=== PATIENT | male | born 1935 | race Caucasian/White ===

== ENCOUNTER → 2016-07-13 | Outpatient (CLI) | payer MEDICARE, OTHER ==
--- NOTE | 2016-07-17 10:44 | RADONC ---
RADIATION ONCOLOGY CONSULTATION NOTE DATE: 07/13/2016 CHART NUMBER: [id number]. DIAGNOSIS: Prostate cancer. STAGE: IIB, [id number]. ECOG PERFORMANCE STATUS: 0 CONSULTATION NOTE: Mr. 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 HISTORY OF PRESENT ILLNESS: The patient was in his usual state of health but was found to have a PSA level of 12.1. On 06/02/2016 the patient underwent prostatic needle biopsy and a poorly differentiated adenocarcinoma, Seattle score 9 (5-4) was found throughout the prostate. All core specimens were positive for prostatic adenocarcinoma and almost all specimens sent perineural invasion noted. A bone scan was done on 06/21/2016 and showed no evidence of metastatic disease. CT scan of the abdomen and pelvis was also done on 06/21/2016 and no evidence of lymphadenopathy was seen. The patient has started androgen deprivation therapy and is now being referred to us for consideration of definitive external beam radiation therapy with IMRT/IGRT. Clearly, IMRT/IGRT will be needed in this highly aggressive cancer. This is an elderly patient and we will be treating not just the prostate and seminal vesicles, but his first echelon of lymph nodes. In order to maintain the small bowel and other structures within their tolerance limits in this elderly patient, IMRT with image guidance will be needed. PAST MEDICAL HISTORY: The patient's past medical history is positive for emphysema and atrial fibrillation. He has a pacemaker. He also has a history of hypertension and a urinary tract infection. In addition, he has had bilateral cataracts. ALLERGIES: The patient is allergic to NEOSPORIN. SOCIAL HISTORY: The patient had smoked half a pack of cigarettes per day for 50 years. He quit in 1996. He drinks alcohol socially. FAMILY HISTORY: The patient's family history is positive for a mother with throat cancer and two brothers with some type of cancer of unknown primary. REVIEW OF SYSTEMS: The patient's review of systems is positive for some occasional dizziness as well as some slight loss of appetite. It is otherwise noncontributory. He denies nausea, vomiting, fevers, chills, night sweats, diplopia, headaches, anxiety or depression, anorexia, weight loss, visual disturbances, chest pain, urinary or bowel difficulties, bone pain or neurological problems. VITAL SIGNS: Oxygen saturation 97%, blood pressure 166/90, temperature 97.4, pulse 60, respirations 18, height 5 feet 10 inches, weight 192 pounds. PHYSICAL EXAMINATION: The patient is a well-developed, well-nourished male in no acute distress. HEENT exam is normocephalic, atraumatic. Extraocular movements are intact. There is no palpable cervical, supraclavicular, infraclavicular, axillary, or inguinal lymphadenopathy present. Lungs are clear to auscultation and percussion. Heart has a regular rate and rhythm. Abdomen is benign with no hepatosplenomegaly, masses, or tenderness. Rectal examination reveals a normal anal sphincter tone. His prostate is smooth with no evidence of nodularity. Skeletal examination reveals no tenderness to pressure or percussion of the bony skeleton. Extremities reveal no clubbing, cyanosis, or edema. Neurologic exam is grossly intact as is the remainder of the physical examination. MEDICAL NECESSITY: IMRT/IGRT is clinically indicated for the highly conformal dose planning required. The target volume is in close proximity to critical structures, such as the rectum, bladder, small bowel, and femoral heads. The volume of interest must be covered with narrow margins to adequately protect immediately adjacent structures. The plan requires interpretation of complex testing such as CT localization. As noted above, special planning (IMRT) and localizing (IGRT) is required and essential to maximally protect sensitive normal tissue structures which cannot be accomplished using conventional 3-dimensional planning. ASSESSMENT: Mr. Groves is presenting to us today with what appears to be a highly aggressive and locally advanced prostatic adenocarcinoma with a rising PSA level. Although the patient is 81 years old, considering the aggressiveness of this tumor, I think it reasonable to offer him radiation. I have discussed with the patient in detail the potential benefits, as well as possible acute and chronic sequelae. We have discussed the logistics of treatment planning, simulation and subsequent fractionated daily radiation treatments. I have set up the patient to be seen again by Dr. Law for discussion and placement of fiducial markers. Once the fiducial markers are placed, further radiation treatment planning can begin. In addition, we did discuss the possibility of watchful waiting with anti-deprivation hormone treatment. Although the patient is elderly, this is an aggressive cancer with a Katherine score 9 (5-4). Androgen deprivation therapy may not be as successful in such a B differentiated malignancy. Therefore, once again, I think it reasonable to offer him radiation. Thank you for allowing us to participate in the care of this very pleasant gentleman. If I could be of any further assistance or provide you with any information, please free to contact me anytime. cc: Sriram Law MD *Camille Guido,
== END ==
LOC: M ONCR 09:52
PROVIDERS: ATTEND Radiology Radiation Oncology
DX: C61 Malignant neoplasm of prostate (principal); Z87.891 Personal history of nicotine dependence; Z79.899 Other long term (current) drug therapy
CPT/HCPCS: 87086; G0463

== ENCOUNTER → 2016-07-13 | Outpatient (REF) | payer MEDICARE, OTHER | LOC: M SMT 13:00 | PROVIDERS: ATTEND Urology | DX: N39.0 Urinary tract infection, site not specified (principal) ==

== ENCOUNTER → 2016-07-28 | Outpatient (CLI) | payer MEDICARE, OTHER ==
[~2016-07-28] MED LIST: ENAL20TA PO; VITMTA PO
--- NOTE | 2016-07-28 14:04 | REP ---
FIDUCIARY MARKER PLACEMENT: 07/28/2016 CLINICAL HISTORY: Prostate carcinoma. FINDINGS: Sonographic guidance provided to Dr. Law of the urology division for placement of six fiduciary markers. Please see his procedure report for details. Signed by Leonel Blake MD 07/28/2016 04:45 P
== END ==
LOC: M SMT 09:25
PROVIDERS: ATTEND Urology
DX: C61 Malignant neoplasm of prostate (principal)

== ENCOUNTER 2016-08-09 09:01 | Outpatient (RCR) | payer MEDICARE, BC, OTHER ==
--- NOTE | 2016-08-10 10:51 | RADONC ---
RADIATION ONCOLOGY SIMULATION NOTE: CHART NUMBER: Mr. Goncalves was taken to the CT scan for CT simulation of his prostate field. CT was accomplished without difficulty or discomfort. Radiation treatment planning is underway, and radiation treatments will begin subsequently. An immobilization device was created without difficulty or discomfort. It will be used throughout the course of treatment. I was physically present throughout the course of CT simulation.
[2016-08-22] MEDS ORDERED: ENAL20TA PO (14:36)
[2016-08-22] MEDS ORDERED: VITMTA PO (14:36)
[2016-08-25] MEDS ORDERED: CEFD1CAP8 PO (11:37)
--- NOTE | 2016-08-28 11:45 | RADONC ---
RADIATION ONCOLOGY PROGRESS NOTE: DATE: 08/28/2016 CHART NO: [id number] Mr. Goncalves had been scheduled to initiate radiation to his prostate today. Last week the patient had been admitted for a urinary tract infection and sepsis. When we called the patient today to see about him coming in, his answered the phone and said he is not up to radiation at this point. When asked if she thought he would be coming in the next several days, she said he did not think he wanted radiation at all. We will keep this patient's chart active at this time. We will follow him closely. Clearly the decision is his. If he chooses to initiate radiation, we would be glad to do it at anytime. Of concern may be the loss of his triangulation point and CT 0 fuller. This may require re-simulation and reinitiation of treatment planning. We will continue to follow him.
== END 2016-09-01 ==
LOC: M ONCR 09:01
PROVIDERS: ATTEND Radiology Radiation Oncology
DX: C61 Malignant neoplasm of prostate (principal)

== ENCOUNTER → 2016-08-09 | Outpatient (CLI) | payer MEDICARE, BC, OTHER | LOC: M RAD 08:19 | PROVIDERS: ATTEND Radiology Radiation Oncology | DX: C61 Malignant neoplasm of prostate (principal) ==

== ENCOUNTER 2016-08-22 11:08 | Inpatient (IN) | payer MEDICARE, BC, OTHER ==
[~2016-08-22] VITALS: Ht 177.8 cm; Wt 79.1 kg
[~2016-08-22 11:08] MED LIST changes: -ENAL20TA PO; +ENOXAPARIN 30 MG/0.3 ML SYR (J1650) SC SCH; -VITMTA PO
[2016-08-22 12:26] LABS: BASO % 0.2 % (0.0-1.0); EOS # 0.1 K/mm3 (0.0-0.50); EOS % 0.9 % (0.0-3.0); LARGE UNSTAINED CELL # 0.1 K/mm3 (0.0-0.4); LARGE UNSTAINED CELL % 0.8 % (0.0-4.0); LYMPH # 0.4 K/mm3 (1.5-4.5); LYMPH % 2.9 % (24.0-44.0); MEAN CORPUSCULAR HEMOGLOBIN 31.5 pg (27.0-33.0); MEAN CORPUSCULAR VOLUME 101.8 fl (80.0-96.0); MONO # 0.5 K/mm3 (0.0-0.8); MONO % 3.6 % (0.0-5.0); NEUTROPHILS % 91.6 % (36.0-66.0); PLATELET COUNT, AUTOMATED 174 k/mm3 (150-450); RED CELL DISTRIBUTION WIDTH 12.4 % (11.5-14.5); WHITE BLOOD COUNT 14.2 K/mm3 (4.0-10.0)
[2016-08-22] MEDS ORDERED: NS 500 ML IV ONE ×2 (12:30→21:30)
[2016-08-22 12:40] LABS: ALBUMIN 2.3 GM/DL (3.2-5.2); ALBUMIN/GLOBULIN RATIO 0.53 (1.00-1.93); ALKALINE PHOSPHATASE 70 U/L (45-117); ALT/SGPT 41 U/L (12-78); ANION GAP 8 MEQ/L (8-16); AST/SGOT 45 U/L (15-37); BILIRUBIN,DIRECT 0.1 MG/DL (0.0-0.2); BILIRUBIN,TOTAL 0.5 MG/DL (0.2-1.0); BLOOD UREA NITROGEN 81 MG/DL (7-18); CALCIUM LEVEL 8.6 MG/DL (8.8-10.2); CARBON DIOXIDE LEVEL 30 MEQ/L (21-32); CHLORIDE LEVEL 104 MEQ/L (98-107); CREATININE FOR GFR 3.17 MG/DL (0.70-1.30); GLOMERULAR FILTRATION RATE 20.1 (>35); GLUCOSE, FASTING 109 MG/DL (83-110); SODIUM LEVEL 142 MEQ/L (136-145); TOTAL PROTEIN 6.6 GM/DL (6.4-8.2)
--- NOTE | 2016-08-22 12:40 | REP ---
Clinical: Altered mental status . Comparison: None . Findings: The ventricles, sulci, and cisterns are normal in position and appearance. Enrique-white differentiation is maintained. No acute intracranial hemorrhage, mass/mass effect, pathology or trauma/injury. No evidence for acute infarction. No extra-axial fluid collection. Calvarium is intact. Paranasal sinuses and mastoid air cells are clear. Impression: Normal noncontrast head CT. No evidence for acute intracranial pathology or trauma/injury. Signed by Priyank Roque MD 08/22/2016 12:32 P
[2016-08-22 12:52] LABS: POTASSIUM SERUM 5.7 MEQ/L (3.5-5.1)
[2016-08-22] MEDS ORDERED: cefTRIAXone SOD 1 GM in D5W MINI-BAG PLUS 50 ML IV ONE (13:30)
--- NOTE | 2016-08-22 14:00 | HPEPDOC ---
Medical History and Physical Date of Admission 08/22/16 History and Physical ATTENDING: PCP: Dr Angela Carreno Urologist. Dr Law. Medical Leader. [facility]. CC: AMS HPI: 81yoM with a past medical history significant for prostate ca, follows with Dr Law, and recieved chemotherapy treatment 08/18/[address] Law. Per since then Pt has been lethargic, confused, incontinent of urine, anorexic with 20 pound weight loss in the past 2 weeks. The pt was scheduled to start RT today but was referred to ED for eval after speaking to Dr Law and Dr Meade. The Pt denies abdominal pain, back pain, frequency , urgency, hematuria, change in color/odor of urine. Denies any fevers, chills, TAYLOR, CP, SOB, cough, palpitations, abdominal pain, N/V /D or changes in bowel habits. Upon presentation to the hospital the patient was found to have AMS/BONI, thus the hospitalist team was consulted. PMHx: Prostate CA- Thanh/Mariel H/O Urinary retention HTN H/O AFib COPD HLD PSHX: Pacemaker 2014 Left inguinal hernia B/L cataract SOCHX: Resides in: [place] Marital Status: Kids: 1 dtr Employment: retired [employer] Tobacco use: quit 20 yrs ago ETOH: denies Illicit Drugs: Denies Recent travel: denies Advanced directives: none FAMHX: Mother: 83 throat Ca Father: 99yo Siblings: 3 sisters Alive, well. 2 brothers . Children: 1 dtr [place]. Unexpected deaths due to medical reasons: None. ROS: As noted in HPI, otherwise 11pt ROS of systems reviewed and remarkable only for PE: GEN: 81yoM, appears stated age. Well-nourished, well developed. No acute distress. Alert and oriented x to person not to time. Pleasant. HEENT: Normocephalic, atraumatic. Pupils are equal, round, and reactive to light. Extraocular movements are intact. No nystagmus appreciated. Sclera are nonicteric. Conjunctiva without injection. Nose midline. Nasal turbinates without bogginess. EACs both patent BL. TMs both visualized and boo with good cone of light, no bulging or erythema. No facial asymmetry. Moist mucous membranes. Dentition fair. Pharynx pink and moist, no cobblestoning. Neck supple , trachea midline. No lymphadenopathy or thyromegaly appreciated. CHEST: Regular rate and rhythm, +S1, +S2 LUNGS: Clear to auscultation bilaterally. No wheezes, rales, or rhonchi. Breathing appears symmetric and easy. Patient is speaking in full sentences. No accessory muscle use. ABD: Round, soft, non-tender, non-distended. +Bowel sounds throughout. No rebound or guarding. No costovertebral angle tenderness. EXT: Pulses 2+ bilaterally dorsalis pedis and radial. 2 mm lower extremity edema appreciated to prox pretib area. SKIN: No rashes. NEURO: Cranial nerves III-XII are intact. No focal deficits appreciated. CXR: Pending CT Head: Normal noncontrast head . No evidence for acute intracranial pathology or trauma/injury EKG: V paced, 89 BPM. BLOOD CULTURES: x 2 pending UC pending. A&P: 81yoM with a past medical history significant for prostate ca, follows with Dr Law, and recieved chemotherapy treatment 08/18/[address] Law. Per since then Pt has been lethargic, confused, incontinent on urine, anorexic with 20 pound weight loss. The pt was scheduled to start RT today but was referred to ED for eval after speaking to Dr Law and Dr Meade. The patient will be admitted to PCU for at least [address] Harris's service. Pt is discussed and reviewed with Dr More. 1. AMS/Metabolic encephalopathy possible uremia vs infection. Pt will be started on IV Cefepime renally dosed. IVF at 100cc per hr. UC/BC x 2 pending. Recheck LA at 6pm. 2. Poor po intake/dehydration. IVF at 100cc/hr 3. Hyperkalemia. S/P Kayexalate in ED. IVF. Recheck at 6pm. Nephrology for any further recommendations. 4. Prostate Ca. Will consult Dr Law for any further recommendations. Dr Law aware and will see the pt. The pt states he was due for his next injection 09/01/16. RT as per Dr eMade. 5. Renal failure. Unknown baseline. Consult nephrology for any further recommendations. Dr June aware and will see pt. Hold ACEI. Check bladder scans. Check renal U/S to r/o obstruction. 6. HTN. Hold ACEI. DVT prophylaxis. Lovenox renally dosed. The patient is a Full code. I have both independently examined this patient as well as reviewed the H&P. I have discussed in detail with Linda the findings and plan of treatment as documented in [facility] note. I will continue to follow the patient and offer further guidance to the patients care as necessary during this hospital stay. Liz More MD Vital Signs 98.7 94 88/56 20 94% RA Laboratory Data Labs 24H Laboratory Tests 2 08/22/16 11:59: Aspartate Amino Transf (AST/SGOT) 45H, Alanine Aminotransferase (ALT/SGPT) 41, Alkaline Phosphatase 70, Total Bilirubin 0.5, Direct Bilirubin 0.1, Albumin 2.3L , Albumin/Globulin Ratio 0.53L, Anion Gap 8, White Blood Count 14.2H, Red Blood Count 4.24L, Hemoglobin 13.4L, Hematocrit 43.1, Mean Corpuscular Volume 101.8H, Mean Corpuscular Hemoglobin 31.5, Mean Corpuscular Hemoglobin Concent 31.0L, Red Cell Distribution Width 12.4, Platelet Count 174, Neutrophils (%) (Auto) 91.6H, Lymphocytes (%) (Auto) 2.9L, Monocytes (%) (Auto) 3.6, Eosinophils (%) ( Auto) 0.9, Basophils (%) (Auto) 0.2, Neutrophils # (Auto) 13.0H, Lymphocytes # ( Auto) 0.4L, Monocytes # (Auto) 0.5, Eosinophils # (Auto) 0.1, Basophils # (Auto ) 0.0, Calcium Level 8.6L, Creatine Kinase MB 1.0, Creatine Kinase MB Relative Index 1.88, Glomerular Filtration Rate 20.1L, Lactic Acid Level 2.3*H, Large Unclassified Cells # 0.1, Large Unclassified Cells % 0.8, Thyroid Stimulating Hormone (TSH) 2.850, Total Creatine Kinase 53, Total Protein 6.6, Troponin I < 0.02 08/22/16 12:45: Bedside Glucose (Misc Panel) 94 08/22/16 12:53: Urine Amorphous Sediment , Urine Appearance TURBIDH, Urine Color LUDWIN, Urine pH 5.0, Urine Specific [place] 1.010, Urine Protein 2+H, Urine Glucose (UA) NEGATIVE, Urine Ketones NEGATIVE, Urine Urobilinogen 0.2, Urine Bilirubin NEGATIVE, Urine Leukocyte Esterase 3+H, Urine Bacteria (Auto) 2+H, Urine Blood 1 +H, Urine Calcium Carbonate Cryst(Auto) , Urine Calcium Oxalate Cryst (Auto) , Urine Calcium Phosphate Danisha (Auto) , Urine Cellular Casts , Urine Cystine Crystals , Urine Granular Casts (Auto) , Urine Hyaline Casts (Auto) 0, Urine Leucine Crystals , Urine Mucus (Auto) , Urine Nitrite NEGATIVE, Urine Oval Fat Bodies (Auto) , Urine RBC (Auto) 32H, Urine Renal Epithelial Cells , Urine Sperm (Auto) , Urine Squamous Epithelial Cells 0, Urine Transitional Epithelial Cells , Urine Trichomonas (Auto) , Urine Triple Phosphate Cryst (Auto) , Urine Tyrosine Crystals , Urine Uric Acid Crystals (Auto) , Urine WBC (Auto) TNTCH, Urine Waxy Casts (Auto) , Urine Yeast-Like Cells (Auto) CBC/BMP Laboratory Tests 08/22/16 11:59 Red Blood Count 4.24 L, Mean Corpuscular Volume 101.8 H, Mean Corpuscular Hemoglobin 31.5, Mean Corpuscular Hemoglobin Concent 31.0 L, Red Cell Distribution Width 12.4, Neutrophils (%) (Auto) 91.6 H, Lymphocytes (%) (Auto) 2.9 L, Monocytes (%) (Auto) 3.6, Eosinophils (%) (Auto) 0.9, Basophils (%) (Auto ) 0.2, Neutrophils # (Auto) 13.0 H, Lymphocytes # (Auto) 0.4 L, Monocytes # ( Auto) 0.5, Eosinophils # (Auto) 0.1, Basophils # (Auto) 0.0 Microbiology Microbiology 08/22/16 Blood Culture, Received Pending 08/22/16 Urine Culture, Received Pending Home Medications Scheduled Cefdinir (Cefdinir) 300 Mg Cap 300 MG PO BID Multivitamins *[facility] STOCKED* (Thera M Plus *[facility] STOCKED*) 1 Tab Tab 1 TAB PO DAILY Allergies Coded Allergies: No Known Allergies (Unverified , 08/22/16) Linda Alford Aug 22, 2016 14:00 LIZ MORE MD Aug 28, 2016 08:36
[2016-08-22] MEDS ORDERED: SOD POLYSTYRENE SULFONATE SUSP 15 GM/60 ML UD PO ONE (14:15)
[2016-08-22] MEDS ORDERED: CEFEPIME HCL 2 GM in D5W MINI-BAG PLUS 50 ML IV SCH (14:30)
[2016-08-22] MEDS ORDERED: ENAL20TA PO (14:36)
[2016-08-22] MEDS ORDERED: VITMTA PO (14:36)
--- NOTE | 2016-08-22 14:51 | REP ---
CHEST, PORTABLE: AP portable view of the chest is performed and compared to prior study, 06/13/2012. Mild bibasilar fibrotic changes are present. There is no acute infiltrate or pulmonary edema. The heart is normal in size. The mediastinal silhouette is unremarkable, unchanged. Left pacemaker is again noted. IMPRESSION: No acute infiltrate. Signed by Efra Enrique MD 08/22/2016 03:33 P
[2016-08-22] MEDS: NS 1,000 ML IV SCH ×2 (15:38→21:56)
--- NOTE | 2016-08-22 15:40 | REP ---
Clinical: Acute renal insufficiency. Technique: Real time boo scale and color evaluation of the kidneys and bladder using curved array transducer. Findings: The kidneys demonstrate bilateral moderate grade III/IV hydronephrosis without significant obvious nephrolithiasis, cystic or significant mass lesion. Small 9 mm echogenic focus along the cortex of the right kidney likely benign chronic change. Right kidney measures 12.2 x 8.0 x 5.8 cm and the proximal right ureter measures 23 mm diameter. Left kidney measures 10.4 x 5.2 x 5.1 cm and the proximal left ureter measures 15 mm diameter. Bladder demonstrates bilateral ureteral jets and suspected mild wall thickening. Impression: Moderate bilateral hydroureteronephrosis. Bilateral ureteral jets within the bladder exclude complete obstruction. Bladder demonstrates wall thickening and is otherwise incompletely evaluated. Signed by Priyank Roque MD 08/22/2016 03:31 P
[2016-08-22 18:00] VITALS: BP 114/82
[2016-08-22 18:38] LABS: CALCIUM LEVEL 8.6 MG/DL (8.8-10.2); CREATININE FOR GFR 3.27 MG/DL (0.70-1.30); GLOMERULAR FILTRATION RATE 19.4 (>35)
[2016-08-22 18:46] LABS: POTASSIUM SERUM 5.6 MEQ/L (3.5-5.1)
--- NOTE | 2016-08-22 18:47 | REP ---
Clinical: Hydronephrosis. Findings: Moderate, grade III hydroureteronephrosis and perinephric stranding is appreciated bilaterally extending to the bladder where mild bladder wall thickening cannot be excluded although the bladder itself is under distended and limited in evaluation. Small clips are identified in the prostate gland which is relatively normal in size. Liver, spleen, pancreas, gallbladder, and bilateral adrenal glands are normal for noncontrast evaluation. The enteric system is without obstruction or acute inflammatory process. Extensive colonic and predominantly sigmoid diverticulosis noted without acute diverticulitis. Left inguinal hernia contains a portion of the proximal sigmoid colon and mesenteric fat. No ascites. No free air. No intraperitoneal or retroperitoneal adenopathy. Atherosclerotic changes of the aorta and branch vessels noted without aneurysm. Musculoskeletal structures demonstrate degenerative changes. Lung bases are clear. Impression: 1. Moderate grade III hydroureteronephrosis and perinephric stranding with suspected mild bladder wall thickening. Findings are nonspecific and outlet obstruction must be considered. Evidence for prior prostate surgery. 2. Colonic and predominantly sigmoid diverticulosis without diverticulitis. 3. Left inguinal hernia contains mesenteric fat and nonobstructed sigmoid colon. 4. Further chronic changes as described above. Signed by Priyank Roque MD 08/22/2016 06:39 P
--- NOTE | 2016-08-22 18:51 | CR ---
DATE OF CONSULTATION: 08/22/2016 CHIEF COMPLAINT: History of prostate cancer in patient with fatigue, lethargy, confusion, incontinence with urination. HISTORY OF PRESENT ILLNESS: This is an 81-year-old male patient with past medical history significant for prostate cancer Katherine score 9, clinical stage [id number] prostate cancer who actually has received hormonal therapy with Firmagon and then switched to Lupron 45 mg every 6 months. The patient actually had fiducial markers placed and is ready to actually have radiation therapy for localized prostate cancer therapy. Today, he refers that he was lethargic, confused, incontinent to urine, anorexic, with a 20 pound weight loss in the past 2 weeks. The patient was scheduled for radiation therapy today and was referred to the emergency department (ED) for evaluation. The patient denies any abdominal pain, back pain, frequency, urgency, hematuria, or change in color or odor of urine. He denies any fever or chills. No cough. No palpitation. No abdominal pain. No nausea. No vomiting. He denies changes in bowel habits. PAST MEDICAL HISTORY: 1. Prostate cancer, under therapy by Dr. Law and Dr. Floyd. 2. History of urinary retention. 3. Hypertension. 4. History of atrial fibrillation. 5. Chronic obstructive pulmonary disease (COPD). PAST SURGICAL HISTORY: 1. Pacemaker in 2013. 2. Left inguinal hernia. 3. Bilateral cataracts. SOCIAL HISTORY: Resides in [place]. Marital status: . Kids: One, . Employment: Retired [employer]. Tobacco use: Quit 20 years ago. Alcohol: Denies. Illicit drugs: Denies. Recent travel: Denies. ADVANCED DIRECTIVES: None. FAMILY HISTORY: Mother at 83 years old, throat cancer. Father 99 years old. Siblings: Three sisters, alive, well; two brothers, . Children: One, , myocardial infarction ([place]), unexpected due to medical reasons. REVIEW OF SYSTEMS: As noted in history of present illness, otherwise 12 review of systems are reviewed and remarkable only for chief complaint. PHYSICAL EXAMINATION: He is awake, oriented times three. He has a nasal cannula but respiratory rate is 92% at 2 liters of nasal cannula. HEENT: Normocephalic, atraumatic. Pupils are equal, round, and reactive to light. Extraocular movements are intact. Sclerae is nonicteric. Conjunctivae without injection. Nose midline. Nasal turbinates without bogginess. NECK: No restriction to active and passive movement of head and neck. CHEST: Regular rate and rhythm, S1, S2 normal. LUNGS: Clear to auscultation bilaterally. No wheezes, rales, or rhonchi. ABDOMEN: Soft, nontender, nondistended. Bowel sounds present. Rebound negative. No costovertebral angle tenderness. EXTREMITIES: No lymphedema. Peripheral pulses palpable. SKIN: No rashes. IMAGING: He had an ultrasound of the kidneys that shows bilateral mild hydronephrosis. His creatinine is 3.5, however the patient actually is emptying and voiding very well. He had a bladder scan in the emergency department that showed zero postvoid residual (PVR), he is emptying very well clear urine. IMPRESSION AND PLAN: This is a patient with prostate cancer Katherine score 9, clinical stage [id number] under therapy with hormonal ablation therapy with Firmagon at beginning and then Lupron Depot for 5 mg every 6 months. The patient has fiducial markers placed and is ready to have radiation therapy by Dr. Floyd. Today, he was confused and lethargic and for this reason he was sent to the emergency department (ED) for evaluation. He is being admitted by the hospitalist service. We think that he is dehydrated and should be hydrated. He is emptying well his bladder. He has bilateral mild hydronephrosis but he is urinating and he urinated in front of us with scanner which showed zero postvoid residual (PVR). For this reason, we will order a CT scan of the abdomen and pelvis, noncontrast, to evaluate if this is really a bilateral hydronephrosis or if this is only a renal extrapelvic cyst that actually are compatible with bilateral hydronephrosis and ultrasound. The patient will be followed by urology service. In any case, he has no need for a Shultz catheter since he is emptying his bladder very well with no postvoid residual (PVR) at this time. Will followup with CT scan report.
[2016-08-22 19:30] VITALS: BP 82/55
--- NOTE | 2016-08-22 20:12 | CR ---
DATE OF CONSULTATION: 08/22/2016 REQUESTING PHYSICIAN: Dr. Ioana Upton CONSULTING PHYSICIAN: Dr. Moncada REASON FOR CONSULTATION: Management of acute kidney injury and hyperkalemia. CHIEF COMPLAINT: The patient was brought to the emergency room by the family for altered mental status and confusion. No history was obtained from the patient's chart and from primary medical team. The patient is unable to provide any reliable history at this time. HISTORY OF PRESENT ILLNESS: Mr. Nilesh Goncalves is an 81-year-old male with a past medical history of cancer of the prostate, which was recently diagnosed. He follows up with urology as an outpatient. He recently received chemotherapy treatment on 08/18/2016. The name of the chemotherapeutic agent is not available at this time. As per family, the patient had been recently lethargic, confused and incontinent of urine. The patient also has anorexia. He has lost approximately 20 lbs of weight in the last two weeks. The patient has marking done to start the radiation therapy for cancer of the prostate, but before he could start the radiation, because of his confusion and altered mental status, family contacted urology and Dr. Floyd. The patient was brought to the emergency room for further management. On initial evaluation in the emergency room, the patient was found to have sepsis with a white cell count of 14.2 with acute renal failure, BUN of 81, creatinine of 3.17. He was found to have urinary tract infection (UTI) after evaluation of urinalysis. He also had elevated lactic acid of 2.3. The patient was started on IV fluid hydration. He was given IV antibiotics. Nephrology service was called for further management of acute kidney injury and hyperkalemia with a potassium of 5.7. The patient's baseline creatinine is not known, but he reports that he is not known to have any history of kidney disease. When I evaluated the patient in the emergency room, he is hemodynamically stable. He is awake. He is not in any apparent distress at this time, but he is oriented times two. PAST MEDICAL HISTORY: 1. Cancer of the prostate. 2. History of urinary retention in the past. 3. Hypertension. 4. Chronic obstructive pulmonary disease (COPD). 5. Hyperlipidemia. 6. History of atrial fibrillation in the past. PAST SURGICAL HISTORY: 1. Status post pacemaker placement in 2013. 2. History of left inguinal hernia repair. 3. Status post bilateral cataract surgery. ALLERGIES: No known drug allergies. FAMILY HISTORY: No significant family history of end stage renal disease requiring hemodialysis. There is a positive history of cancer of the larynx in mother. SOCIAL HISTORY: The patient lives at home with his family. He is retired. He quit smoking about 20 years ago. He denies any history of alcohol abuse or drug abuse. REVIEW OF SYSTEMS: CONSTITUTIONAL: The patient reports recent weight loss, about 20 pounds in the last two to three weeks. He denies any fevers or chills. EYES: He denies any blurry vision or double vision. ENT: He denies any dysphagia or odynophagia or ear discharge. CARDIOVASCULAR: He denies any chest pain or palpitations. RESPIRATORY: He denies any shortness of breath, cough or wheezing. GASTROINTESTINAL: He denies any nausea or vomiting, but he does report decreased appetite. GENITOURINARY: The patient reports history of cancer of the prostate, recently got chemotherapy and due for radiation therapy at this time. He reports urinary incontinence. MUSCULOSKELETAL: The patient denies any muscle weakness. NEUROLOGIC: There is no history of seizures or strokes in the past. PSYCHIATRIC: No history of depression or anxiety. HEMATOLOGIC/ONCOLOGIC: History of cancer of the prostate, which was recently diagnosed. ENDOCRINE: There is no history or diabetes, hypothyroidism or hyperthyroidism. All other review of systems was negative. PHYSICAL EXAMINATION: GENERAL: The patient is awake, alert, oriented times two, lying in bed. No apparent distress. VITAL SIGNS: Temperature is 98 degrees Fahrenheit. Blood pressure is 128/59, pulse is 94, respiratory rate of 18, saturating 93% on room air. HEAD AND NECK EXAM: Extraocular muscles intact. Pupils are equal, round and reactive to light. Bilateral pseudophakia. Mucous membranes are moist. Neck is supple. There is no jugular venous distention (JVD). CARDIOVASCULAR: S1, S2. Regular rate. No murmur, rub or gallop. RESPIRATORY: Chest is clear to auscultation bilaterally. Bilateral equal air entry. No rales or rhonchi. ABDOMEN: Soft. Positive bowel sounds. Nontender. No ascites. No organomegaly. The patient has a left inguinal hernia, which is mildly tender. Bladder is not palpable at this time. EXTREMITIES: No clubbing or cyanosis. Pulses are 2+. The patient has 2+ pitting edema on the bilateral lower extremities. NEUROLOGIC: No focal neurological deficits. He is oriented to himself and to place. SKIN: No rashes or ulcers. PSYCHIATRIC: Normal mood and affect. LABORATORY REVIEW: Complete blood count (CBC) showed WBC 14.2, hemoglobin 13.4, platelets of 174. Basic metabolic panel (BMP) showed sodium 142, potassium 5.7, chloride 104, bicarbonate 30, BUN 81, creatinine is 3.1. Lactic acid is 2.3, calcium is 8.6, albumin is 2.3. Urinalysis showed that it was turbid with 1+ blood, 3+ leukocyte esterase, too numerous to count WBCs. Microbiology: Cultures are pending so far. IMAGING: Renal ultrasound done today showed moderate bilateral hydroureteronephrosis, bilateral ureteral jets within the bladder, excluding complete obstruction. There was bladder wall thickness. Bed side bladder scan done in the emergency room showed a maximum volume of 140 mL. CURRENT INPATIENT MEDICATIONS: The patient has been started on: - cefepime 1 gram IV every 24 hours - he was given a dose of Rocephin 1 gram IV times one dose - normal saline at 100 mL an hour - Lovenox 30 mg subcutaneously daily - Kayexalate 30 grams by mouth times one dose ASSESSMENT: 81-year-old male with a past medical history of cancer of the prostate, recently started on chemotherapy, pending radiation therapy, admitted this time with sepsis secondary to urinary tract infection (UTI) and acute renal failure. PLAN: 1. Sepsis secondary to urinary tract infection. The patient is hemodynamically stable at this time. Lactate is slightly elevated. He has been hydrated with IV normal saline. Continue IV normal saline at 100 mL an hour. Continue serial monitoring of lactic acid. He has already been given Rocephin and starting tomorrow, he will be getting cefepime. Followup cultures. Antibiotics can be tapered down depending upon culture and sensitivity. 2. Acute renal failure. The patient's baseline creatinine is not known at this time. In our system, I do not have any other laboratories available. His creatinine on admission is 3.1. Most likely it is secondary to a combination of bilateral hydroureteronephrosis and urinary tract infection (UTI). Continue IV antibiotics at this time. There is no urgent need of hemodialysis. Renal function is expected to improve with improvement in infection and sepsis. 3. Hyperkalemia. Hyperkalemia is secondary to acute renal failure. The patient was already given a dose of Kayexalate 30 grams by mouth times one dose, potassium is expected to improve with improvement in the renal function. 4. Bilateral hydroureteronephrosis. The a got bedside bladder scan done, which showed only 140 mL of urine in the bladder. I believe bilateral hydronephrosis might have been chronic. I am not going to put the Shultz in at this time; however, I have ordered the bladder scan to be done every 8 hours. If the postvoid residual is more than 250 mL, then the patient will get a Shultz catheter. I am going to go ahead and order an official ultrasound of the bladder as well. 5. Hypertension. The patient's blood pressure is acceptable at this time. The patient was on enalapril at home, 20 mg. Enalapril is being held at this time. No need of antihypertensive medication at this time. The patient is septic. If needed, he can be started on calcium channel blockers tomorrow morning. Enalapril might also have been contributing to hyperkalemia in this patient. 6. Cancer of the prostate. The patient already follows up with urology as an outpatient. Cancer prostate management is as per urology recommendations. Thank you for involving us in the care of this patient. We shall be happy to follow the patient along with you tomorrow morning. Plan of care was already discussed with primary medical team's physician's press assistant, Linda Alford and the patient's registered nurse (RN) at the bedside in the emergency room.
[2016-08-22 21:00] VITALS: BP 89/60
[2016-08-22 21:59] VITALS: BP 100/59
[2016-08-23] VITALS (10 sets, daily range): BP systolic 100–157; BP diastolic 58–86
[2016-08-23] MEDS: CEFEPIME HCL 1 GM in D5W MINI-BAG PLUS 50 ML IV SCH (02:00)
[2016-08-23] MEDS: NS 1,000 ML IV SCH (05:33)
--- NOTE | 2016-08-23 07:17 | ECGEPIP ---
Stationary ECG Study [facility] - ED Test Date: 2016-08-22 Pat Name: HARRISON TALBOT Department: Room: - Gender: M [employer] Attendant: regis : 1935 Requested By: Jerome Shelley Order Number: [id number] Reading MD: Allyssa Combs Measurements Intervals [place] Rate: 89 P: 89 NC: 235 QRS: -67 QRSD: 153 T: 85 QT: 377 QTc: 461 Interpretive Statements ELECTRONIC VENTRICULAR PACEMAKER ABNORMAL RHYTHM ECG SINUS RHYTHM FIRST DEGREE AV BLOCK NO PRIOR FOR COMPARISON Electronically Signed On 08-23-2016 7:17:23 EDT by Allyssa Combs
[2016-08-23 08:39] LABS: BASO % 0.4 % (0.0-1.0); EOS # 0.1 K/mm3 (0.0-0.50); EOS % 1.4 % (0.0-3.0); LARGE UNSTAINED CELL # 0.1 K/mm3 (0.0-0.4); LARGE UNSTAINED CELL % 1.4 % (0.0-4.0); LYMPH # 0.6 K/mm3 (1.5-4.5); LYMPH % 4.9 % (24.0-44.0); MEAN CORPUSCULAR HEMOGLOBIN 32.2 pg (27.0-33.0); MEAN CORPUSCULAR HGB CONC 31.1 g/dl (32.0-36.5); MEAN CORPUSCULAR VOLUME 103.8 fl (80.0-96.0); MONO # 0.5 K/mm3 (0.0-0.8); MONO % 5.3 % (0.0-5.0); NEUTROPHILS # 8.9 K/mm3 (1.8-7.7); NEUTROPHILS % 86.7 % (36.0-66.0); PLATELET COUNT, AUTOMATED 141 k/mm3 (150-450); RED CELL DISTRIBUTION WIDTH 12.3 % (11.5-14.5); WHITE BLOOD COUNT 10.2 K/mm3 (4.0-10.0)
[2016-08-23 08:54] LABS: ALBUMIN 1.9 GM/DL (3.2-5.2); ALBUMIN/GLOBULIN RATIO 0.54 (1.00-1.93); BILIRUBIN,TOTAL 0.4 MG/DL (0.2-1.0); CREATININE FOR GFR 2.95 MG/DL (0.70-1.30); GLOMERULAR FILTRATION RATE 21.8 (>35); MAGNESIUM LEVEL 2.3 MG/DL (1.8-2.4); TOTAL PROTEIN 5.4 GM/DL (6.4-8.2)
[2016-08-23] MEDS: HEPARIN SOD (PORCINE) 5000 UNITS/ML VIAL SQ SCH ×2 (09:00→20:20)
[2016-08-23 09:02] LABS: POTASSIUM SERUM 5.8 MEQ/L (3.5-5.1)
[2016-08-23] MEDS: NS 0.45% 1,000 ML IV SCH ×2 (10:52→20:15)
[2016-08-23] MEDS ORDERED: LACTULOSE 20 GM/30 ML SYRUP UD PO ONE (11:45)
[2016-08-23] MEDS ORDERED: SOD POLYSTYRENE SULFONATE SUSP 15 GM/60 ML UD PO ONE (11:45)
--- NOTE | 2016-08-23 12:33 | CR ---
CONSULTATION NOTE/PROGRESS NOTE DATE OF CONSULTATION: 08/23/2016 The patient was seen in the emergency department at admission due to a bilateral hydronephrosis detected on ultrasound. For this reason, we actually ordered a CT scan of the abdomen and pelvis noncontrast, which actually confirmed bilateral hydroureteronephrosis grade 3 with bilateral stranding. At the moment of admission, his creatinine levels were 3.27 at 6 p.m. on 08/22/2016. Today, his creatinine levels after hydration are at 2.95 and a BUN of 56. Even though the creatinine has fallen, he has real bilateral hydroureteronephrosis grade [address] scan and bilateral stranding. The patient is emptying well his bladder with a postvoid residual (PVR) bladder scan detected at emergency department, which was minimal. His urine is clear. He has no fever, no chills. He is alert and oriented. This morning, we explained to the patient that the best thing due to his history of prostate cancer and his bilateral hydroureteronephrosis is to recover his renal function completely; and if he has partial obstruction of both kidneys, his renal function will probably not recover completely. For this reason, we think that the best option will be bilateral nephrostomy tubes at this moment in time. He will continue receiving hormonal therapy for his prostate cancer with LHRH analogue. PLAN: 1. Interventional radiology consult was placed for bilateral nephrostomy tubes placed to gravity. 2. From the prostate cancer standpoint of view, he will continue followup with me, Dr. Sriram Law, and Dr. Floyd for definite therapy of his prostate cancer. He will continue on LHRH analogue also every 6 months with Lupron Depot injections. Thank you very much for the consultation.
--- NOTE | 2016-08-23 13:38 | IPN ---
DATE: 08/23/2016 SUBJECTIVE: The patient was seen and examined at the bedside today in the morning. The patient's renal function is slightly improving as compared with yesterday; however, he continues to be hyperkalemic. The patient was given more IV fluid boluses yesterday and his IV fluid rate was increased to normal saline at 150 mL an hour. The patient did not require any Shultz catheterization and he is able to urinate himself. REVIEW OF SYSTEMS: The patient denies any fevers, chills, rigors, headaches, nausea, vomiting, chest pain, shortness of breath, pain in the abdomen, constipation, or diarrhea. The rest of the review of systems is negative. OBJECTIVE: VITAL SIGNS: Temperature is 98.4 degrees Fahrenheit. Blood pressure is 100/59, pulse is 92, respiratory rate of 18, saturating 97% on nasal cannula at 2 liters per minute. Intake and output: Urine output is not recorded. The patient had four incontinent voids overnight. Weight on the bed scale is 78.9 kg. PHYSICAL EXAMINATION: GENERAL: The patient is awake, alert, oriented times two. Lying in bed in no apparent distress. HEAD AND NECK EXAM: Extraocular muscles intact. Pupils are equal, round and reactive to light. Mucous membranes are moist. NECK: Supple. There is no jugular venous distention (JVD). CARDIOVASCULAR: S1, S2. Regular rate. No murmur, rub or gallop. RESPIRATORY: Chest is clear to auscultation bilaterally. Bilateral equal air entry. No rales or rhonchi. ABDOMEN: Soft. Positive bowel sounds. Nontender. No ascites. No organomegaly. The patient does have left inguinal hernia. EXTREMITIES: No clubbing or cyanosis. Pulses are 2+. He has 2+ pitting edema of the bilateral lower extremities. 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 Power is 5/5 in all extremities. He is oriented to himself and the place. SKIN: No rashes or ulcers. LABORATORY REVIEW: CBC showed a WBC of 10.2, hemoglobin is 11, platelets are 141. BMP showed a sodium of 145, potassium 5.8, chloride 109, bicarbonate is 30. BUN 66, creatinine is 2.9, it was 3.2 yesterday. Glucose is 96. Calcium is 8. Albumin is 1.9. Microbiology: Cultures are negative so far. IMAGING: CAT scan of the abdomen and pelvis done yesterday showed moderate grade III hydroureteronephrosis and perinephric stranding with mild bladder wall thickening. There was evidence of sigmoid diverticulosis without diverticulitis. Left inguinal hernia containing mesenteric fat and nonobstructed sigmoid colon. CURRENT MEDICATIONS: The patient's medications were all reviewed by me. He is currently on IV cefepime 1 gram every 24 hourly. The patient got two normal saline boluses of 500 mL each yesterday. His IV fluids have been changed to half normal saline at 100 mL an hour. The patient was given a dose of lactulose 30 mL and Kayexalate 15 gram by mouth times one dose today morning. ASSESSMENT: 81-year-old male with a past medical history of cancer of the prostate, recently being treated with androgen deprivation therapy pending radiation therapy, admitted this time with sepsis secondary to urinary tract infection (UTI) and acute renal failure. PLAN: 1. Sepsis secondary to urinary tract infection (UTI). The patient required IV fluid boluses because of volume depletion yesterday. Cultures are negative so far. White cell count is coming down. Continue current dose of IV antibiotics. Followup cultures and taper down the antibiotic as needed. 2. Acute renal failure. Acute renal failure is secondary to sepsis, urinary tract infection, volume depletion and dehydration. The patient was aggressively fluid hydrated yesterday. Continue IV fluids at this time; however, I will change the IV fluids to half normal saline. 3. Hyperkalemia. THe patient continues to be hyperkalemic despite a dose of Kayexalate yesterday, potassium is 5.8 today. I have given the patient another dose of Kayexalate along with lactulose 30 mL by mouth times one dose, potassium level is expected to improve with improvement in the renal function as well. 4. Bilateral hydroureteronephrosis. The patient got a CAT scan done yesterday. There is no evidence of bladder obstruction at this time. Postvoid residual was 140 mL. No indication of Shultz catheterization at this time. Continue to do the bladder scan every 8 hours for now. rest of the management is as per urology recommendations. 5. Hypertension. The patient is enalapril was held on admission. Blood pressure is acceptable at this time. There is no need of antihypertensive medication at this time. The patient was actually hypotensive yesterday. 6. Cancer of the prostate. The patient was already getting androgen deprivation therapy from urology as an outpatient. Radiation therapy is on hold because of admission to the hospital at this time. The rest of the management is as per radiation oncology and urology. MTDD
--- NOTE | 2016-08-23 14:16 | IPNPDOC ---
Subjective Date Seen The patient was seen on 08/23/16. Subjective Chief Complaint/HPI The patient is a 81-year-old male admitted with a reason for visit of Acute Kidney Failure;Uti. Events since last encounter pateint remains a little confused still but better than yesterday , has been hypotensive overnight no better with fluid resuscitation , low grade fever continues, patient had a post void residual of only 140 ml so does not need wilson cath. Going for bilateral percutaneous nephrostomy today. Objective Physical Examination General Exam: Positive: Cooperative, No Acute Distress Eye Exam: Positive: Conjunctiva & lids normal, EOMI, PERRLA, Negative: Sclera icteric ENT Exam: Positive: Atraumatic, Mucous membr. moist/pink, Pharynx Normal Neck Exam: Positive: Supple, Negative: JVD, thyromegaly Chest Exam: Positive: Clear to auscultation, Normal air movement Heart Exam: Positive: Normal S1, Normal S2, Rate Normal, Regular Rhythm, Negative: Murmurs, Rubs Telemetry: Positive: No significant arrhythmia Abdomen Exam: Positive: Normal bowel sounds, Soft, Negative: Hepatospenomegaly, Tenderness Extremity Exam: Positive: Normal pulses, Negative: Clubbing, Cyanosis, Edema Assessment /Plan Problems (1) Sepsis Status: Acute Problem Text: due to urinary tract infection blood cultures and urine cultures in progress. continue cefepime (2) Metabolic encephalopathy Status: Acute Problem Text: due to infection and sepsis . improving. (3) Urinary tract infection Status: Acute Problem Text: continue cefepime (4) Acute kidney failure Status: Acute Problem Text: due to infection sepsis , dehydration and also bilateral obstructive uropathy patient going for bilateral nephrostomy tube placement today. Nephrology following. (5) Prostate cancer Status: Chronic Problem Text: receiving hormone therapy, scheduled for RT after discharge from hospital urology and dr pisano following. (6) A-fib Status: Chronic (7) Pacemaker Status: Chronic (8) Hyperkalemia Status: Acute Problem Text: received kayexalate. (9) Hyperlipidemia Status: Chronic (10) COPD (chronic obstructive pulmonary disease) Status: Chronic (11) Diverticulosis Status: Chronic (12) Inguinal hernia Status: Chronic Plan/VTE VTE Prophylaxis Ordered?: Yes VS, I&O, 24H, Fishbone Vital Signs/I&O Vital Signs Date Time Temp Pulse Resp B/P Pulse Ox O2 Delivery O2 Flow Rate FiO2 08/23/16 07:30 Room Air 08/23/16 04:00 98.4 92 20 100/59 97 2.0 I&O- Last 24 Hours up to 6 AM 08/23/16 05:59 Intake Total 1575 ml Output Total 140 ml Balance 1435 ml Laboratory Data 24H LABS Laboratory Tests 2 08/22/16 16:27: Lactic Acid Followup at 4 Hours 2.3*H 08/22/16 18:02: Anion Gap 8, Blood Urea Nitrogen 81H, Creatinine 3.27H, Sodium Level 144, Potassium Level 5.6H, Chloride Level 105, Carbon Dioxide Level 31, Calcium Level 8.6L, Glomerular Filtration Rate 19.4L 08/22/16 20:37: Lactic Acid Level 1.2 08/23/16 07:23: Anion Gap 6L, Blood Urea Nitrogen 66H, Creatinine 2.95H, Sodium Level 145, Potassium Level 5.8H, Chloride Level 109H, Carbon Dioxide Level 30, Calcium Level 8.0L, Glomerular Filtration Rate 21.8L, Aspartate Amino Transf (AST/SGOT) 22, Alanine Aminotransferase (ALT/SGPT) 31, Alkaline Phosphatase 57, Total Bilirubin 0.4, Total Protein 5.4L, Albumin 1.9L, Albumin/Globulin Ratio 0.54L, White Blood Count 10.2H, Red Blood Count 3.42L, Hemoglobin 11.0#L, Hematocrit 35.5L, Mean Corpuscular Volume 103.8H, Mean Corpuscular Hemoglobin 32.2, Mean Corpuscular Hemoglobin Concent 31.1L, Red Cell Distribution Width 12.3, Platelet Count 141L, Neutrophils (%) (Auto) 86.7H, Lymphocytes (%) (Auto) 4.9L, Monocytes (%) (Auto) 5.3H, Eosinophils (%) (Auto) 1.4, Basophils (%) (Auto) 0.4 , Neutrophils # (Auto) 8.9H, Lymphocytes # (Auto) 0.6L, Monocytes # (Auto) 0.5, Eosinophils # (Auto) 0.1, Basophils # (Auto) 0.0, Large Unclassified Cells # 0.1 , Large Unclassified Cells % 1.4, Magnesium Level 2.3 CBC/BMP Laboratory Tests 08/22/16 18:02 Calcium Level 8.6 L 08/23/16 07:23 Calcium Level 8.0 L, Aspartate Amino Transf (AST/SGOT) 22, Alanine Aminotransferase (ALT/SGPT) 31, Alkaline Phosphatase 57, Total Bilirubin 0.4, Total Protein 5.4 L, Albumin 1.9 L, Red Blood Count 3.42 L, Mean Corpuscular Volume 103.8 H, Mean Corpuscular Hemoglobin 32.2, Mean Corpuscular Hemoglobin Concent 31.1 L, Red Cell Distribution Width 12.3, Neutrophils (%) (Auto) 86.7 H , Lymphocytes (%) (Auto) 4.9 L, Monocytes (%) (Auto) 5.3 H, Eosinophils (%) ( Auto) 1.4, Basophils (%) (Auto) 0.4, Neutrophils # (Auto) 8.9 H, Lymphocytes # ( Auto) 0.6 L, Monocytes # (Auto) 0.5, Eosinophils # (Auto) 0.1, Basophils # (Auto ) 0.0 Microbiology Microbiology 08/22/16 Blood Culture, Received Pending 08/22/16 Blood Culture - Preliminary, Resulted No growth after 24 hours . All specim... 08/22/16 Urine Culture, Received Pending GEETHA ORTIZ MD Aug 23, 2016 14:16
[2016-08-23] MEDS ORDERED: SODIUM BICARBONATE 8.4% INJ 50MEQ 50 ML VIAL As Ordered ONE (17:31)
[2016-08-23] MEDS ORDERED: ISOVUE-300 61% 50ML VIAL (Q9967) As Ordered ONE (17:31)
[2016-08-23] MEDS ORDERED: LIDOCAINE 2% MDV 20 ML VIAL As Ordered ONE (17:31)
--- NOTE | 2016-08-23 19:37 | REPKIM ---
CLINICAL HISTORY: Patient with a history of prostate ca presents with UTI/ sepsis, elevated creatinine/renal failure and bilateral hydronephrosis. The referring service has asked bilateral nephrostomy catheter placement. PROCEDURE PERFORMED: 1. Ultrasound Kidneys 2. Left Percutaneous Nephrostomy Drainage Catheter Placement 3. Right Percutaneous Nephrostomy Drainage Catheter Placement INTERVENTIONALIST: Iglesia Roberto MD CONSENT: The risks, benefits and alternatives to the procedure were explained to the patient/family and informed written consent was obtained. MEDICATIONS: Local Lidocaine CONTRAST: 15 mL Isovue 300 EBL: 5 mL FLUORO TIME: 1.8 minutes DEVICES USED: Resolve 8.5F catheter x 2 Lot# [id number] PROCEDURE/FINDINGS: The patient was brought to the interventional radiology suite and placed in the prone position. Time out procedure was performed. The patient was prepped and draped in a usual sterile fashion. Patient received IV antibiotics. Ultrasound evaluation of bilateral kidneys showed moderate to severe hydronephrosis. LEFT SIDE: Using ultrasound and fluoroscopy guidance, a 21-gauge Accustick needle was advanced into the targeted lower pole posterior calyx, after infiltration of the skin and deep tissues with local anesthetic. Using this access an Accustick catheter was introduced into the renal pelvis. Initial aspirate revealed relatively clear blood tinged urine. Over the guidewire, an 8.5-Tu[place] nephrostomy drainage catheter was introduced. Its distal loop was formed and locked in the renal pelvis. Contrast was hand injected, confirming satisfactory drainage catheter position. RIGHT SIDE: Using ultrasound and fluoroscopy guidance, a 21-gauge Accustick needle was advanced into the lower pole posterior calyx, after infiltration of the skin and deep tissues with local anesthetic. Using this access an Accustick catheter was introduced into the renal pelvis. Initial aspirate revealed relatively clear urine. Over the guidewire, an 8.5-[place] nephrostomy drainage catheter was introduced. Its distal loop was formed and locked in the renal pelvis. Contrast was hand injected, confirming satisfactory drainage catheter position. Each drainage catheter was then secured to the skin with 2-0 Prolene suture and covered with a sterile dressing. Each drainage catheter was flushed and connected to a gravity drainage bag. The patient tolerated the procedure well with no immediate complications. This procedure was performed using ultrasound and fluoroscopy. Dr. Roberto was present. FINDINGS: 1. Ultrasound demonstrates bilateral moderate to severe hydronephrosis, worse on the right. A sample of urine sent for c/s. 2. Successful placement of bilateral 8.5-Tu[place] percutaneous nephrostomy urinary diversion tubes. IMPRESSION: Moderate to severe bilateral hydronephrosis. Successful placement of bilateral 8.5F percutaneous nephrostomy urinary diversion tubes as discussed above. Continue supportive care and antibiotics. cc: MD Crissy Knox MD MTDD
[2016-08-24 00:45] VITALS: BP 117/77
[2016-08-24] MEDS: CEFEPIME HCL 1 GM in D5W MINI-BAG PLUS 50 ML IV SCH (02:15)
[2016-08-24 04:45] VITALS: BP 109/57
[2016-08-24] MEDS: NS 0.45% 1,000 ML IV SCH (05:41)
[2016-08-24 05:52] LABS: BASO % 0.2 % (0.0-1.0); EOS # 0.1 K/mm3 (0.0-0.50); EOS % 1.3 % (0.0-3.0); LARGE UNSTAINED CELL # 0.2 K/mm3 (0.0-0.4); LARGE UNSTAINED CELL % 1.8 % (0.0-4.0); LYMPH # 0.5 K/mm3 (1.5-4.5); LYMPH % 5.5 % (24.0-44.0); MEAN CORPUSCULAR HEMOGLOBIN 31.3 pg (27.0-33.0); MEAN CORPUSCULAR HGB CONC 31.4 g/dl (32.0-36.5); MEAN CORPUSCULAR VOLUME 99.6 fl (80.0-96.0); MONO # 0.4 K/mm3 (0.0-0.8); NEUTROPHILS # 7.7 K/mm3 (1.8-7.7); NEUTROPHILS % 86.3 % (36.0-66.0); PLATELET COUNT, AUTOMATED 122 k/mm3 (150-450); RED CELL DISTRIBUTION WIDTH 12.3 % (11.5-14.5)
[2016-08-24 06:15] LABS: ALBUMIN 1.8 GM/DL (3.2-5.2); ALBUMIN/GLOBULIN RATIO 0.44 (1.00-1.93); BILIRUBIN,TOTAL 0.4 MG/DL (0.2-1.0); CREATININE FOR GFR 2.6 MG/DL (0.70-1.30); GLOMERULAR FILTRATION RATE 25.2 (>35); MAGNESIUM LEVEL 2.1 MG/DL (1.8-2.4); POTASSIUM SERUM 4.4 MEQ/L (3.5-5.1); TOTAL PROTEIN 5.9 GM/DL (6.4-8.2)
[2016-08-24 08:15] VITALS: BP 118/63
[2016-08-24] MEDS: HEPARIN SOD (PORCINE) 5000 UNITS/ML VIAL SQ SCH ×3 (09:00→21:14)
[2016-08-24] MEDS ORDERED: D5W 1,000 ML IV SCH (10:45)
[2016-08-24 11:37] VITALS: BP 112/62
--- NOTE | 2016-08-24 12:31 | IPNPDOC ---
Subjective Date Seen The patient was seen on 08/24/16. Subjective Chief Complaint/HPI The patient is a 81-year-old male admitted with a reason for visit of Acute Kidney Failure;Uti. Events since last encounter no complaints remains still a little confused. Objective Physical Examination General Exam: Positive: Cooperative, No Acute Distress Eye Exam: Positive: Conjunctiva & lids normal, EOMI, PERRLA, Negative: Sclera icteric ENT Exam: Positive: Atraumatic, Mucous membr. moist/pink, Pharynx Normal Neck Exam: Positive: Supple, Negative: JVD, thyromegaly Chest Exam: Positive: Clear to auscultation, Normal air movement Heart Exam: Positive: Normal S1, Normal S2, Rate Normal, Regular Rhythm, Negative: Murmurs, Rubs Telemetry: Positive: No significant arrhythmia Abdomen Exam: Positive: Normal bowel sounds, Soft, Negative: Hepatospenomegaly, Tenderness Extremity Exam: Positive: Normal pulses, Negative: Clubbing, Cyanosis, Edema Assessment /Plan Problems (1) Hypernatremia Status: Acute Problem Text: IVF changed to dextrose. (2) Sepsis Status: Acute Problem Text: due to urinary tract infection blood cultures and urine cultures in progress. continue cefepime (3) Metabolic encephalopathy Status: Acute Problem Text: due to infection and sepsis . improving. (4) Urinary tract infection Status: Acute Problem Text: continue cefepime (5) Acute kidney failure Status: Acute Response to Treatment: Improving Problem Text: due to infection sepsis , dehydration and also bilateral obstructive uropathy Had bilateral nephrostomy tubes placed on 08/23/16 Nephrology following. (6) Prostate cancer Status: Chronic Problem Text: receiving hormone therapy, scheduled for RT after discharge from hospital urology and dr pisano following. (7) A-fib Status: Chronic (8) Pacemaker Status: Chronic (9) Hyperkalemia Status: Acute Problem Text: received kayexalate. (10) Hyperlipidemia Status: Chronic (11) COPD (chronic obstructive pulmonary disease) Status: Chronic (12) Diverticulosis Status: Chronic (13) Inguinal hernia Status: Chronic Plan/VTE VTE Prophylaxis Ordered?: Yes VS, I&O, 24H, Fishbone Vital Signs/I&O Vital Signs Date Time Temp Pulse Resp B/P Pulse Ox O2 Delivery O2 Flow Rate FiO2 08/24/16 12:01 Room Air 08/24/16 11:37 99.4 74 16 112/62 96 08/23/16 22:45 2.0 I&O- Last 24 Hours up to 6 AM 08/24/16 06:00 Intake Total 2890 ml Output Total 950 ml Balance 1940 ml Laboratory Data 24H LABS Laboratory Tests 2 08/24/16 05:37: Blood Urea Nitrogen 56H, Creatinine 2.60H, Sodium Level 149H, Potassium Level 4.4#, Chloride Level 112H, Carbon Dioxide Level 30, Calcium Level 8.0L, Aspartate Amino Transf (AST/SGOT) 16, Alanine Aminotransferase (ALT/SGPT) 24, Alkaline Phosphatase 55, Total Bilirubin 0.4, Total Protein 5.9L, Albumin 1.8L, Albumin/Globulin Ratio 0.44L, Anion Gap 7L, White Blood Count 9.0, Red Blood Count 3.74L, Hemoglobin 11.7L, Hematocrit 37.3L, Mean Corpuscular Volume 99.6H, Mean Corpuscular Hemoglobin 31.3, Mean Corpuscular Hemoglobin Concent 31.4L, Red Cell Distribution Width 12.3, Platelet Count 122L, Neutrophils (%) (Auto) 86.3H, Lymphocytes (%) (Auto) 5.5L, Monocytes (%) (Auto) 5.0, Eosinophils (%) ( Auto) 1.3, Basophils (%) (Auto) 0.2, Neutrophils # (Auto) 7.7, Lymphocytes # ( Auto) 0.5L, Monocytes # (Auto) 0.4, Eosinophils # (Auto) 0.1, Basophils # (Auto ) 0.0, Glomerular Filtration Rate 25.2L, Large Unclassified Cells # 0.2, Large Unclassified Cells % 1.8, Magnesium Level 2.1 CBC/BMP Laboratory Tests 08/24/16 05:37 Calcium Level 8.0 L, Aspartate Amino Transf (AST/SGOT) 16, Alanine Aminotransferase (ALT/SGPT) 24, Alkaline Phosphatase 55, Total Bilirubin 0.4, Total Protein 5.9 L, Albumin 1.8 L, Red Blood Count 3.74 L, Mean Corpuscular Volume 99.6 H, Mean Corpuscular Hemoglobin 31.3, Mean Corpuscular Hemoglobin Concent 31.4 L, Red Cell Distribution Width 12.3, Neutrophils (%) (Auto) 86.3 H , Lymphocytes (%) (Auto) 5.5 L, Monocytes (%) (Auto) 5.0, Eosinophils (%) (Auto ) 1.3, Basophils (%) (Auto) 0.2, Neutrophils # (Auto) 7.7, Lymphocytes # (Auto) 0.5 L, Monocytes # (Auto) 0.4, Eosinophils # (Auto) 0.1, Basophils # (Auto) 0.0 Microbiology Microbiology 08/22/16 Blood Culture - Preliminary, Resulted No growth after 24 hours . All specim... 08/22/16 Blood Culture - Preliminary, Resulted No Growth after 48 hours. All Specime... 08/23/16 Urine Culture, Received Pending 08/22/16 Urine Culture - Final, Complete Escherichia Coli GEETHA ORTIZ MD Aug 24, 2016 12:31
--- NOTE | 2016-08-24 13:37 | IPN ---
DATE: 08/24/2016 SUBJECTIVE: The patient was seen and examined at the bedside today in the morning. He was sitting on the sofa. Last 24 hour events were noted. The patient got bilateral percutaneous nephrostomy tubes placed yesterday. His kidney function is improving, as compared with yesterday; however, the patient is hypernatremic today. Microbiology results were also noted. The patient is growing Escherichia (E) coli in the urine. The patient continues to be on IV antibiotics at this time. REVIEW OF SYSTEMS: The patient denies any fevers, chills, rigors, headaches, nausea, vomiting, chest pain, shortness of breath. He does report that his mouth is dry. He is feeling thirsty. He reports lower extremity edema as well. The rest of the review of systems is negative. OBJECTIVE: VITAL SIGNS: Temperature is 99.4 degrees Fahrenheit. Blood pressure is 112/62, pulse is 74, respiratory rate of 16, saturating 96% on room air. Intake and output: Urine output is recorded as 350 mL yesterday and 700 mL so far today since overnight. Weight on the bed scale is 78.2 kg. PHYSICAL EXAMINATION: GENERAL: The patient is awake, alert, oriented times two. Sitting on the sofa in no apparent distress. HEAD AND NECK EXAM: Extraocular muscles intact. Pupils are equal, round and reactive to light. Mucous membranes are moist. NECK: Supple. There is no jugular venous distention (JVD). CARDIOVASCULAR: S1, S2. Regular rate. No murmur, rub or gallop. RESPIRATORY: Chest is clear to auscultation bilaterally. Bilateral equal air entry. No rales or rhonchi. ABDOMEN: Soft. Positive bowel sounds. Nontender. No ascites. No organomegaly. The patient has bilateral percutaneous nephrostomy tubes with clear urine in the bag. The patient has a left inguinal hernia as well. EXTREMITIES: No clubbing or cyanosis. Pulses are 2+. He has about 1+ pitting edema of the bilateral lower extremities. 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 Power is 5/5 in all extremities. He is oriented to himself and the place. SKIN: No rashes or ulcers. LABORATORY REVIEW: CBC showed a WBC of 9, hemoglobin is 11.7, platelets are 122. BMP showed a sodium of 149, potassium 4.4, chloride 112, bicarbonate is 30. BUN 56, creatinine is 2.6, calcium is 8, albumin is 1.8. Microbiology: Urine culture is growing E coli, which is sensitive to cefepime, which the patient is receiving at this time. IMAGING: No new imaging available; however, the patient got bilateral percutaneous nephrostomy tubes placed yesterday. CURRENT MEDICATIONS: The patient's medications were all reviewed by me. His IV normal saline has been stopped. The patient has been started on D5W at 60 mL an hour. He continues to be on IV cefepime. ASSESSMENT: 81-year-old male with a past medical history of cancer of the prostate, recently being treated with androgen deprivation therapy by urology. Pending radiation therapy, the patient got sick and was admitted to the hospital with sepsis secondary to urinary tract infection (UTI) and acute renal failure. PLAN: 1. Sepsis secondary to urinary tract infection (UTI). Urine is growing E coli sensitive to cefepime. His white cell count is improving. Continue Cefepime at this time. 2. Acute renal failure. Acute renal failure is secondary to a combination of dehydation, urinary tract infection, hydronephroses. Renal function continues to improve. The patient got bilateral percutaneous nephrostomies. 3. Bilateral hydroureteronephrosis. The patient got bilateral percutaneous nephrostomies on 08/23/2016. He is having good urine output and renal function is improving. 4. Hyperkalemia. Hyperkalemia is improving with improving renal function. The patient got a dose of Kayexalate yesterday as well, potassium is 4.4 today. 5. Hypernatremia. I have stopped the IV half normal saline. I have switched the patient to D5W and I have also encouraged the patient to drink more liquids. 6. Hypertension. The patient's blood pressure is acceptable at this time. Enalapril is on hold. No need of antihypertensive medications at this time. 7. Cancer of the prostate. The patient was already getting androgen deprivation therapy from urology. Radiation therapy is pending.
[2016-08-24 15:25] VITALS: BP 147/74
[2016-08-24 22:00] VITALS: BP 126/69
[2016-08-25] MEDS: CEFEPIME HCL 1 GM in D5W MINI-BAG PLUS 50 ML IV SCH (00:26)
[2016-08-25 06:00] VITALS: BP 130/61
[2016-08-25 06:16] LABS: BASO % 0.2 % (0.0-1.0); EOS # 0.2 K/mm3 (0.0-0.50); EOS % 2.3 % (0.0-3.0); LARGE UNSTAINED CELL # 0.1 K/mm3 (0.0-0.4); LARGE UNSTAINED CELL % 1.4 % (0.0-4.0); LYMPH # 0.6 K/mm3 (1.5-4.5); LYMPH % 6.6 % (24.0-44.0); MEAN CORPUSCULAR HEMOGLOBIN 30.7 pg (27.0-33.0); MEAN CORPUSCULAR HGB CONC 30.9 g/dl (32.0-36.5); MEAN CORPUSCULAR VOLUME 99.3 fl (80.0-96.0); MONO # 0.3 K/mm3 (0.0-0.8); MONO % 4.3 % (0.0-5.0); NEUTROPHILS # 6.3 K/mm3 (1.8-7.7); NEUTROPHILS % 85.2 % (36.0-66.0); PLATELET COUNT, AUTOMATED 128 k/mm3 (150-450); RED CELL DISTRIBUTION WIDTH 12.3 % (11.5-14.5); WHITE BLOOD COUNT 7.4 K/mm3 (4.0-10.0)
[2016-08-25 06:34] LABS: ALBUMIN 1.7 GM/DL (3.2-5.2); ALBUMIN/GLOBULIN RATIO 0.45 (1.00-1.93); BILIRUBIN,TOTAL 0.6 MG/DL (0.2-1.0); CALCIUM LEVEL 8.3 MG/DL (8.8-10.2); CREATININE FOR GFR 2.34 MG/DL (0.70-1.30); GLOMERULAR FILTRATION RATE 28.5 (>35); POTASSIUM SERUM 4.2 MEQ/L (3.5-5.1); TOTAL PROTEIN 5.5 GM/DL (6.4-8.2)
[2016-08-25 10:00] VITALS: BP 129/76
[2016-08-25] MEDS: HEPARIN SOD (PORCINE) 5000 UNITS/ML VIAL SQ SCH (10:35)
--- NOTE | 2016-08-25 11:05 | IPN ---
DATE: 08/25/2016 SUBJECTIVE: Patient was seen and examined at the bedside today in the morning. He does not have any active complaints. He is hemodynamically stable. His creatinine continues to improve and his hypernatremia is also better today. REVIEW OF SYSTEMS: Patient denies any fevers, chills, rigors, headache, nausea, vomiting, chest pain, shortness of breath, pain in abdomen, constipation or diarrhea. Rest of the review of systems is negative. OBJECTIVE: VITAL SIGNS: Temperature is 97.6 degrees Fahrenheit. Blood pressure is 130/61. Pulse is 78. Respiratory rate of 16. Saturating 92% on room air. INTAKE AND OUTPUT: Urine output recorded as 1.5 liter yesterday, 675 mL so far today since overnight. Weight on the bed scale is 79.1 kg. PHYSICAL EXAMINATION: GENERAL: Patient is awake, alert, oriented times three, sitting in the bed, no apparent distress. HEAD AND NECK EXAM: Extraocular muscles intact. Pupils equal, round and reactive to light. Mucous membranes are moist. NECK: Is supple. There is no jugular venous distention (JVD). CARDIOVASCULAR: S1, S2. Regular rate. No murmur, rub or gallop. RESPIRATORY: Chest is clear to auscultation bilaterally. Bilateral equal air entry. No rales or rhonchi. ABDOMEN: Is soft, positive bowel sounds, nontender. No ascites. No organomegaly. Patient has bilateral percutaneous nephrostomy tubes with clear urine in the bag and he has a left inguinal hernia. EXTREMITIES: No clubbing or cyanosis. Pulses are 2+, and he has 1+ edema of the bilateral lower extremities. 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 Power is 5/5 in all extremities. SKIN: No rashes or ulcers. LABORATORY REVIEW: CBC showed a WBC of 7.4, hemoglobin 10.4, platelets are 128. BMP showed sodium 145, potassium 4.2, chloride 108, bicarbonate 31, BUN 42, creatinine is 2.3, calcium is 8.3, albumin is 1.7. MICROBIOLOGY: Blood cultures sent on 08/22/2016 are negative so far. Repeat urine culture is pending. CURRENT MEDICATIONS: Patient's medications were all reviewed by me. His IV fluids have been stopped. He is currently on IV cefepime and heparin subcutaneous. ASSESSMENT: 81-year-old male with past medical history of cancer (CA) of prostate, recently being treated with androgen deprivation therapy, pending radiation therapy, admitted this time with sepsis secondary to urinary tract infection (UTI) and acute renal failure along with bilateral hydronephrosis. PLAN: 1. Sepsis secondary to urinary tract infection. White cell count is significantly better. He has Escherichia (E) coli in the urine, which is sensitive to IV antibiotics. It is resistant to Levaquin and first generation cephalosporins. He continues to be on IV cefepime. Duration of antibiotics is as per primary team. 2. Acute renal failure. Acute renal failure was secondary to urinary tract infection, volume depletion and bilateral hydronephrosis. Patient got bilateral percutaneous nephrostomies. Renal function continues to improve. There is no need of IV fluid hydration. Continue to encourage oral hydration at this time. 3. Bilateral hydroureteronephrosis, status post bilateral percutaneous nephrostomy on 08/23/2016. Good urine output from both sides. Rest of the management is as per urology team. 4. Hypernatremia. Patient got IV fluids yesterday. His sodium level has improved to 145. Continue to encourage free water intake at this time. 5. Hypertension. Blood pressure is acceptable at this time. His angiotensin-converting enzyme (SHRUTHI) inhibitors were held on admission. No need of antihypertensives at this time. If needed, patient can be started on [id number] if blood pressure is more than 145 systolic. 6. CA prostate. Patient has is pending radiation therapy, which will be done as outpatient once the UTI is treated. 7. Discharge planning. It is okay to discharge the patient from nephrology standpoint. Patient's renal function continues to improve. Nephrology will sign off at this moment. Please call nephrology service as needed for any help in the management of this patient in the future. Plan of care was discussed with hospitalist team, Dr. Crissy Harris.
[2016-08-25] MEDS ORDERED: CEFD1CAP8 PO (11:37)
[2016-08-25 14:00] VITALS: BP 111/56
--- NOTE | 2016-08-26 07:28 | DSES ---
DATE OF ADMISSION: 08/22/2016 DATE OF DISCHARGE: 08/25/2016 PRIMARY CARE PROVIDER: Dr. Guido UROLOGIST: Dr. Law PARTNERSHIP MARKETING MANAGER: JHON Cardio DISCHARGE DIAGNOSES: Acute renal failure due to obstructive uropathy. Acute metabolic encephalopathy. Sepsis. Urinary tract infection. Hypernatremia, resolved. Bilateral hydronephrosis with hydroureter, now status post bilateral nephrostomy tubes placed on 08/23/2016. Chronic atrial fibrillation. Pacemaker in place. Prostate cancer, on hormone therapy, scheduled for radiation. Hyperlipidemia. Chronic obstructive pulmonary disease (COPD). Diverticulosis. Inguinal hernia. Hypertension, now not requiring any medication. DISCHARGE MEDICATIONS: - cefdinir 300 mg by mouth twice a day - multivitamin one tablet daily HOSPITAL COURSE: This is an 81-year-old male who has been diagnosed with prostate cancer 3 months ago and has been following with urology and receiving hormone modulation therapy, who was noted to become more weak, confused with poor oral intake for at least 3 weeks prior to admission. Family noted him to be sleeping most of the day, not doing his usual activities, not able to drive a car. Gradually, his confusion increased and on the day of admission, he was so confused that he did not know how to dress himself or undress himself, did not know how to take a shower, so was brought into the emergency room. In the emergency department (ED), the patient was found to have a urinary tract infection with metabolic encephalopathy and acute renal failure from bilateral obstructive uropathy, showing bilateral hydronephrosis and hydroureter. However, the patient did not have any problem in evacuation as his postvoid residual was only 140 mL, so the patient underwent bilateral nephrostomy placement by interventional radiology on 08/23/2016. The patient was also hypernatremic, hyperkalemic and clinically looked dehydrated, so the patient was started on antibiotics for his urinary tract infection (UTI) and aggressive hydration. The patient's renal function started to improve with resolution of his hypernatremia and his hyperkalemia and improvement in his creatinine level. The patient's mental status also improved, and at present, the patient is alert, oriented times three. His strength is also improving. His appetite is better. A urine culture grew Escherichia (E) coli. Urine culture from the kidney during the insertion of nephrostomy tube was negative. However, the patient had already received antibiotics before the procedure. Blood cultures remain negative at 72 hours. The patient was treated with cefepime in the hospital and subsequently changed to oral cefdinir on discharge. PHYSICAL EXAMINATION: VITAL SIGNS: Temperature 99.5, pulse 88, respiratory rate 18, blood pressure 111/56, pulse oximetry 93% in room air. GENERAL: Patient awake, alert, oriented times three, lying down in bed in no acute distress. HEENT: Normocephalic, atraumatic. Moist mucous membranes. Anicteric eyes. CHEST: Clear to auscultation. CARDIOVASCULAR: S1, S2, regular. No rub, murmur or gallop. ABDOMEN: Soft, nontender. Bowel sounds present. EXTREMITIES: No edema. LABORATORY DATA: WBC 7.4, hemoglobin 10.4, platelets 128. Sodium 145, potassium 4.2, chloride 108, bicarbonate 31, BUN 42, creatinine 2.3, glucose 97. Liver function tests are normal. Urine culture E coli. Blood cultures negative. DISPOSITION: The patient is discharged to home in stable condition. DISCHARGE INSTRUCTIONS: The patient is to followup with primary care provider in 1 week. Patient to followup with Dr. Law in urology in 1 week. Patient to followup with nephrology, Dr. Moncada, in 2 weeks. Patient to call Dr. Floyd in radiation therapy to reschedule for his radiation therapy. Regular diet. Activity as tolerated.
== END 2016-08-25 16:05 | disposition home health service (06) | DRG 871 ==
LOC: M ED 13:42 → M ED INP 15:20 → M PCU 08-23 07:02 → M MSPAV 08-24 15:22
PROVIDERS: ADMIT Hospitalist; ATTEND Internal Medicine Nephrology
PROC: 0T9130Z Drainage of Left Kidney with Drainage Device, Percutaneous Approach (ICD-10-PCS; principal; 2016-08-23)
PROC: 0T9030Z Drainage of Right Kidney with Drainage Device, Percutaneous Approach (ICD-10-PCS; 2016-08-23)
DX: A41.9 Sepsis, unspecified organism (principal); G93.41 Metabolic encephalopathy; N39.0 Urinary tract infection, site not specified; N17.9 Acute kidney failure, unspecified; N13.30 Unspecified hydronephrosis; E87.0 Hyperosmolality and hypernatremia; R65.20 Severe sepsis without septic shock; I48.91 Unspecified atrial fibrillation; I10 Essential (primary) hypertension; E78.5 Hyperlipidemia, unspecified; J44.9 Chronic obstructive pulmonary disease, unspecified; C61 Malignant neoplasm of prostate; K57.30 Diverticulosis of large intestine without perforation or abscess without bleeding; Z95.0 Presence of cardiac pacemaker; E87.5 Hyperkalemia; B96.29 Other Escherichia coli [E. coli] as the cause of diseases classified elsewhere; Z87.891 Personal history of nicotine dependence; Z79.899 Other long term (current) drug therapy

== ENCOUNTER → 2016-09-07 | Outpatient (REF) | payer MEDICARE, BC, OTHER ==
[~2016-09-07] MED LIST changes: +CALC600T57 PO; +CEFD1CAP8 PO; +ENAL20TA PO; -ENOXAPARIN 30 MG/0.3 ML SYR (J1650) SC SCH; +VITATAB26 PO; +VITMTA PO
[2016-09-07 19:50] LABS: PERCENT SATURATION 12.8 % (19.7-37.4)
== END ==
LOC: M LAB REF 17:06
PROVIDERS: ATTEND Internal Medicine Nephrology
DX: N39.0 Urinary tract infection, site not specified (principal); D63.1 Anemia in chronic kidney disease

== ENCOUNTER 2016-09-13 08:06 | Outpatient (RCR) | payer MEDICARE, BC, OTHER ==
[~2016-09-13 08:06] MED LIST changes: -CALC600T57 PO; -VITATAB26 PO
--- NOTE | 2016-09-13 11:21 | RADONC ---
RADIATION ONCOLOGY SIMULATION NOTE DATE: 09/13/2016 CHART NUMBER: [id number] Mr. Goncalves has lost one of his simulation triangulation points. He has therefore been taken back to the CT for re-CT simulation of his prostate field. The patient underwent CT simulation without difficulty or discomfort. Radiation treatment planning is being undertaken and radiation treatments will begin subsequently. The previously used immobilization device was once again utilized for this simulation and will be utilized for the course of treatment. Once again, I was physically present for CT simulation.
[2016-09-13] MEDS ORDERED: VITATAB26 PO (14:30)
[2016-09-13] MEDS ORDERED: CALC600T57 PO (14:30)
--- NOTE | 2016-09-26 09:52 | RADONC ---
RADIATION ONCOLOGY PROGRESS NOTE DATE: 09/25/2016 CHART NUMBER: [id number] Mr. Goncalves underwent his first fraction of 180 cGy to his prostate today. It was tolerated without difficulty or discomfort. REVIEW OF SYSTEMS: The patient's review of systems is noncontributory. Denies nausea, vomiting, fevers, chills, night sweats, diplopia, headaches, anxiety or depression, anorexia, weight loss, visual disturbances, chest pain, urinary or bowel difficulties, bone pain, or neurological problems. PHYSICAL EXAMINATION: The patient's skin clearly showed no evidence of radiation change since this was first fraction. His physical exam is otherwise noncontributory. Mr. Lund is tolerating treatments quite well and radiation will continue as scheduled.
== END 2016-10-01 ==
LOC: M ONCR 08:06
PROVIDERS: ATTEND Radiology Radiation Oncology
DX: C61 Malignant neoplasm of prostate (principal)

== ENCOUNTER → 2016-09-13 | Outpatient (CLI) | payer MEDICARE, BC, OTHER | LOC: M RAD 08:02 | PROVIDERS: ATTEND Radiology Radiation Oncology | DX: C61 Malignant neoplasm of prostate (principal) ==

== ENCOUNTER → 2016-09-18 | Outpatient (REF) | payer MEDICARE, OTHER ==
[~2016-09-18] MED LIST changes: +CALC600T57 PO; +VITATAB26 PO
[2016-09-18 17:45] LABS: MICROSCOPIC INDICATED? MAN YES (NO)
[2016-09-18 17:47] LABS: BACTERIA, URINE MOD AMOUNT; HYALINE CAST, URINE NONE SEEN /lpf (0-1); MICROSCOPIC EXAM PERFORMED; SQUAMOUS EPITHELIAL CELL URINE NONE SEEN /hpf (SMALL AMT); TRANSITIONAL EPI CELLS, URINE SMALL AMOUNT /hpf; WBC, URINE TNTC /hpf (0-3)
== END ==
LOC: M SMT 17:02
PROVIDERS: ATTEND Urology
DX: N40.1 Benign prostatic hyperplasia with lower urinary tract symptoms (principal)

== ENCOUNTER 2016-10-02 11:09 | Outpatient (RCR) | payer MEDICARE, OTHER ==
--- NOTE | 2016-10-02 12:52 | RADONC ---
RADIATION ONCOLOGY PROGRESS NOTE DATE: 10/02/2016 CHART NUMBER: [id number] Mr. Goncalves is presently at a dose of 1080 cGy to his prostate and is tolerating treatments quite well at this point with no complaints related to his radiation therapy. He is having no new urinary or bowel difficulties and no bone pain. REVIEW OF SYSTEMS The patient's review of systems is positive for memory loss but is otherwise largely noncontributory. Denies nausea, vomiting, fevers, chills, night sweats, diplopia, headaches, anxiety or depression, anorexia, weight loss, visual disturbances, chest pain, urinary or bowel difficulties, bone pain, or neurological problems. PHYSICAL EXAMINATION: The patient's skin is in good condition with no evidence of moist or dry desquamation. The remainder of his physical exam remains unchanged. Mr. Goncalves is tolerating treatments quite well and radiation will continue as scheduled.
--- NOTE | 2016-10-09 11:51 | RADONC ---
RADIATION ONCOLOGY PROGRESS NOTE DATE: 10/09/2016 CHART NUMBER: [id number] Mr. Goncalves is presently at a dose of 1980 cGy to his prostate and is tolerating treatments quite well at this point with no complaints related to his radiation therapy. He is having no urinary or bowel difficulties, and no bone pain. REVIEW OF SYSTEMS: The patient's review of systems is otherwise noncontributory. He denies nausea, vomiting, fevers, chills, night sweats, diplopia, headaches, anxiety or depression, anorexia, weight loss, visual disturbances, chest pain, urinary or bowel difficulties, bone pain or neurological problems. PHYSICAL EXAMINATION: The patient's skin is in good condition with no evidence of moist or dry desquamation. The remainder of his physical exam remains unchanged. Mr. Velascos is tolerating treatments quite well and radiation will continue as scheduled.
--- NOTE | 2016-10-16 12:07 | RADONC ---
RADIATION ONCOLOGY PROGRESS NOTE DATE: 10/10/2016 CHART NUMBER: [id number]. PROGRESS NOTE: Mr. Goncalves is presently at a dose of 2880 cGy to his prostate and is tolerating treatments quite well at this point with no complaints related to his radiation therapy. He is having no urinary or bowel difficulties and no bone pain. REVIEW OF SYSTEMS: The patient's review of systems is largely noncontributory. Denies nausea, vomiting, fevers, chills, night sweats, diplopia, headaches, anxiety or depression, anorexia, weight loss, visual disturbances, chest pain, urinary or bowel difficulties, bone pain, or neurological problems. PHYSICAL EXAMINATION: The patient's skin is in good condition with no evidence of radiation change present. There is no moist or dry desquamation. The remainder of his physical exam remains unchanged. Mr. Goncalves is tolerating treatments quite well and radiation will continue as scheduled.
--- NOTE | 2016-10-23 13:04 | RADONC ---
RADIATION ONCOLOGY PROGRESS NOTE: DATE: 10/23/2016 CHART NUMBER: [id number]. PROGRESS NOTE: Mr. Goncalves is presently a dose of 3780 cGy to his prostate and is tolerating treatments quite well at this point with no complaints related to his radiation therapy. He is having no urinary or bowel difficulties. No bone pain. REVIEW OF SYSTEMS: The patient's review of systems is noncontributory. Denies nausea, vomiting, fevers, chills, night sweats, diplopia, headaches, anxiety or depression, anorexia, weight loss, visual disturbances, chest pain, urinary or bowel difficulties, bone pain, or neurological problems. PHYSICAL EXAMINATION: The patient's skin is in good condition with no evidence of radiation change present. There is no moist or dry desquamation. The remainder of his physical exam remains unchanged. Mr. Goncalves is tolerating treatments quite well and radiation will continue as scheduled.
--- NOTE | 2016-10-31 11:54 | RADONC ---
RADIATION ONCOLOGY PROGRESS NOTE DATE: 10/31/2016 CHART NUMBER: [id number] Mr. Goncalves is presently at a dose of 4680 cGy to his prostate and seminal vesicles and is tolerating treatments quite well at this point with no complaints related to his radiation therapy. He is having no urinary or bowel difficulties. No bone pain. REVIEW OF SYSTEMS: The patient's review of systems is noncontributory. Denies nausea, vomiting, fevers, chills, night sweats, diplopia, headaches, anxiety or depression, anorexia, weight loss, visual disturbances, chest pain, urinary or bowel difficulties, bone pain, or neurological problems. PHYSICAL EXAMINATION: The patient's skin is in good condition with no evidence of radiation change present. There is no moist or dry desquamation. The remainder of his physical exam remains unchanged. Mr. Goncalves is tolerating treatments quite well and radiation will continue as scheduled.
== END 2016-11-01 ==
LOC: M ONCR 11:09
PROVIDERS: ATTEND Radiology Radiation Oncology
DX: C61 Malignant neoplasm of prostate (principal)

== ENCOUNTER 2016-11-02 09:36 | Outpatient (RCR) | payer MEDICARE, BC, OTHER ==
--- NOTE | 2016-11-07 13:38 | RADONC ---
RADIATION ONCOLOGY PROGRESS NOTE DATE: 11/07/2016 CHART NUMBER: [id number] Mr. Goncalves is presently at a dose of 5580 cGy to his prostate and is tolerating treatments quite well at this point with no complaints related to his radiation therapy. He is having no urinary or bowel difficulties and no bone pain. REVIEW OF SYSTEMS: The patient's review of systems is noncontributory. Denies nausea, vomiting, fevers, chills, night sweats, diplopia, headaches, anxiety or depression, anorexia, weight loss, visual disturbances, chest pain, urinary or bowel difficulties, bone pain, or neurological problems. PHYSICAL EXAMINATION: The patient's skin is in good condition with no evidence of radiation change present. There is no moist or dry desquamation. The remainder of his physical exam remains unchanged. Mr. Goncalves is tolerating treatments quite well and radiation will continue as scheduled.
--- NOTE | 2016-11-14 07:49 | RADONC ---
RADIATION ONCOLOGY PROGRESS NOTE DATE: 11/13/2016 CHART NUMBER: [id number] Mr. Goncalves is presently at a dose of 6300 cGy to his prostate and is tolerating treatments quite well at this point with no complaints related to his radiation therapy. He has no urinary or bowel difficulties. No bone pain. REVIEW OF SYSTEMS: The patient's review of systems is noncontributory. Denies nausea, vomiting, fevers, chills, night sweats, diplopia, headaches, anxiety or depression, anorexia, weight loss, visual disturbances, chest pain, urinary or bowel difficulties, bone pain, or neurological problems. PHYSICAL EXAMINATION: The patient's skin is in good condition with no evidence of moist or dry desquamation. The remainder of his physical exam remains unchanged. Mr. Goncalves is tolerating treatments quite well and radiation will continue as scheduled.
--- NOTE | 2016-11-20 14:43 | RADONC ---
RADIATION ONCOLOGY PROGRESS NOTE DATE: 11/20/2016 CHART NUMBER: [id number] Mr. Goncalves is presently at a dose of 7200 cGy to his prostate and is tolerating treatments quite well at this point with absolutely no complaints related to his radiation therapy. He is having no urinary or bowel difficulties, and no bone pain. He does continue to have his nephrostomy tubes in place. REVIEW OF SYSTEMS: The patient's review of systems is noncontributory. He denies nausea, vomiting, fevers, chills, night sweats, diplopia, headaches, anxiety or depression, anorexia, weight loss, visual disturbances, chest pain, urinary or bowel difficulties, bone pain or neurological problems. PHYSICAL EXAMINATION: The patient's skin is in good condition with no evidence of moist or dry desquamation. The remainder of his physical exam remains unchanged. Mr. Goncalves is tolerating treatments quite well and radiation will continue as scheduled.
--- NOTE | 2016-11-28 07:53 | RADONC ---
RADIATION ONCOLOGY TREATMENT SUMMARY: DATE: 11/27/2016 CHART NUMBER: [id number] DIAGNOSIS: Prostate cancer. STAGE: II B, G9hD9I3 ECOG PERFORMANCE STATUS: 0 Mr. Goncalves is a delightful 81-year-old white male with the diagnosis of a stage II B, T 2cN0M0, poorly differentiated [place] score 9 (5-4) adenocarcinoma of prostate who presented to us for consideration of definitive external beam radiation therapy with IMRT/IGRT. We treated the patient to his prostate for a total dose of 7900 cGy delivered in 44 fractions of 180 cGy each over 61 elapsed days from 09/25/2016 through 11/27/2016. The patient's prostate was treated on the linear accelerator utilizing a 6 MV photon beam via IMRT/IGRT. We initially treated the prostate, seminal vesicles and first echelon of lymph nodes for a dose of 4500 cGy and subsequently coned down to deliver an additional 900 cGy of the prostate and seminal vesicles bringing the seminal vesicles to a total dose of 5400 cGy. We then coned down further to deliver an additional 2520 cGy to the prostate itself once again bringing it to a total dose of 7920 cGy. Mr. Goncalves tolerated his treatments extremely well with no complaints related to his radiation therapy. He was able to complete therapy as prescribed without interruption. I have scheduled the patient to see me again in 1 month for further followup. He will also continue to be followed by his other physicians as well. Thank you for allowing us to participate in the care of this very pleasant gentleman. If I can be of any further assistance or provide you with any information, please free to contact me anytime. As always warm regards, cc: MD Camille Chung,
[2017-03-08] MEDS ORDERED: ENAL5TAB PO (14:34)
== END 2016-12-01 ==
LOC: M ONCR 09:36
PROVIDERS: ATTEND Radiology Radiation Oncology
DX: C61 Malignant neoplasm of prostate (principal)

== ENCOUNTER → 2016-11-09 | Outpatient (CLI) | payer MEDICARE, BC, OTHER ==
[~2016-11-09] MED LIST changes: +ISOVUE-300 61% 50ML VIAL (Q9967) As Ordered ONE; +SODIUM BICARBONATE 4 % INJ 2.4MEQ 5 ML VIAL (THIS HAS A PRESERVATIVE) As Ordered ONE; +cefTRIAXone SOD 1 GM VIAL (J0696) As Ordered ONE
--- NOTE | 2016-11-09 17:49 | REPKIM ---
CLINICAL HISTORY: Patient with a history of prostate ca, h/o UTI/sepsis, hydronephrosis, s/p bilateral urinary diversion tube placement on 08/23/16 presents for follow up bilateral PCN check and change for maintenance. PROCEDURE: 1. Nephrostomy catheter check and change on the left 2. Nephrostomy catheter check and change on the right INTERVENTIONALIST: Iglesia Roberto MD MEDICATIONS: Local Lidocaine, Rocephin 1 gm IV CONTRAST: 20 mL Isovue 300 EBL: less than 5 mL FLUORO TIME: 1.7 minutes DEVICES USED: 10F Nephrostomy (Resolve) catheter x2 Description of procedure: The risks, benefits, and alternatives of the procedure and associated intravenous sedation were discussed with the patient and informed written consent was obtained. The patient was brought to the interventional radiology suite where a timeout procedure was performed. The existing indwelling catheters and the area surrounding the insertion sites were prepped and draped with standard technique. LEFT SIDE: Contrast was injected through the existing nephrostomy catheter and images were obtained. This showed the catheter is patent in a satisfactory course and position. Its tip is located in the renal pelvis. The pelvicalyceal system has decompressed. After local anesthetic was established using Local lidocaine, a guidewire was advanced through the existing drainage catheter into the renal pelvis. The existing catheter was unlocked and removed over the guidewire. A new 10F nephrostomy catheter was then advanced over the guidewire. The guidewire was removed and the distal loop of the nephrostomy drainage catheter was formed and locked in the renal pelvis. Contrast was gently hand injected, confirming satisfactory drainage catheter positioning. The catheter was secured using 2-0 prolene suture. The drainage catheter exit site was covered with a sterile dressing. RIGHT SIDE: Contrast was injected through the existing nephrostomy catheter and images were obtained. This showed the catheter is patent in a satisfactory course and position. Its tip is located in the renal pelvis. The pelvicalyceal system has decompressed. Using a similar fashion, a 10F nephrostomy catheter was then advanced over the guidewire. The guidewire was removed and the distal loop of the nephrostomy drainage catheter was formed and locked in the renal pelvis. Contrast was gently hand injected, confirming satisfactory drainage catheter positioning. The drainage catheter exit site was covered with a sterile dressing. Each drainage catheter was flushed and connected to a gravity drainage bag. The patient tolerated the procedure well with no immediate complications. This procedure was performed using fluoroscopy. Dr. Roberto was present. IMPRESSION: Successful bilateral nephrostomy catheter check and change as discussed above. Plan: Plan for routine catheter check and change in approximately 10-12 weeks or earlier if signs of tube dysfunction were to occur. cc: MD Crissy Knox MD MTDD
== END | disposition home or self-care (01) ==
LOC: M IRPRO 12:31
DX: Z43.6 Encounter for attention to other artificial openings of urinary tract (principal); N13.30 Unspecified hydronephrosis
CPT/HCPCS: 50435; C1729; C1769; J0696; Q9967

== ENCOUNTER → 2016-12-27 | Outpatient (CLI) | payer MEDICARE, BC, OTHER ==
[~2016-12-27] MED LIST changes: +CIPR500T3 PO; +ENAL5TAB PO; -ISOVUE-300 61% 50ML VIAL (Q9967) As Ordered ONE; -SODIUM BICARBONATE 4 % INJ 2.4MEQ 5 ML VIAL (THIS HAS A PRESERVATIVE) As Ordered ONE; +TYLE650T35 PO; -cefTRIAXone SOD 1 GM VIAL (J0696) As Ordered ONE
--- NOTE | 2016-12-27 12:20 | RADONC ---
RADIATION ONCOLOGY FOLLOWUP NOTE DATE: 12/27/2016 CHART NUMBER: [id number] DIAGNOSIS: Prostate cancer. STAGE: IIB, G3wH7K9. ECOG PERFORMANCE STATUS: 0 Mr. Goncalves is a very pleasant 81-year-old white male with the diagnosis of a stage IIB, L3iF1B5, poorly differentiated [place] score 9 (5 - 4) adenocarcinoma of the prostate who is presenting to us today for routine followup visit 1 month post completion of external beam radiation therapy. The patient presents today reporting that he is doing quite well with no complaints at this time related to his radiation therapy or disease. He has no urinary or bowel difficulties. No bone pain. The patient continues to have a urostomy bag, which is functioning without difficulty. The patient's review of systems is positive for his nephrostomy but is otherwise noncontributory. He denies nausea, vomiting, fevers, chills, night sweats, diplopia, headaches, anxiety or depression, anorexia, weight loss, visual disturbances, chest pain, urinary or bowel difficulties, bone pain, or neurological problems. PHYSICAL EXAMINATION: The patient is a well-developed, well-nourished male in no acute distress. HEENT exam is normocephalic, atraumatic. Extraocular movements are intact. There is no palpable cervical, supraclavicular, infraclavicular, axillary, or inguinal lymphadenopathy present. Lungs are clear to auscultation and percussion. Heart has a regular rate and rhythm. Abdomen is benign with no hepatosplenomegaly, masses, or tenderness. Rectal examination reveals a normal anal sphincter tone. His prostate is smooth with no evidence of nodularity. Skeletal examination reveals no tenderness to pressure or percussion of the bony skeleton. Extremities reveal no clubbing, cyanosis, or edema. Neurologic exam is grossly intact, as is the remainder of the physical examination. ASSESSMENT: The patient is clinically stable at this time and will be seen by us again in 1 month for further followup. He will also continue to be followed by his other physicians as well. cc: MD Camille Chung DO
== END ==
LOC: M ONCR 10:56
PROVIDERS: ATTEND Radiology Radiation Oncology
DX: C61 Malignant neoplasm of prostate (principal)

== ENCOUNTER → 2017-01-31 | Outpatient (CLI) | payer MEDICARE, BC, OTHER ==
[~2017-01-31] MED LIST changes: +ISOVUE-300 61% 50ML VIAL (Q9967) As Ordered ONE; +NITROFURANTOIN (MACROBID) 100 MG CAP As Ordered ONE
--- NOTE | 2017-01-31 13:46 | REP ---
The procedure was performed under the direct supervision of Dr. Calderon CLINICAL HISTORY: Prostate cancer/bilateral hydronephrosis PROCEDURE: Bilateral nephrostomy catheter exchange Medications: Macrobid 100 mg EBL: Less than 1 ml FLUORO TIME: 4.7 minutesCONTRAST: 10 ml Isovue 300DEVICE USED: 10 F Nephrostomy (Resolve) catheters Lot# [id number] The risks and benefits of the procedure were explained to the patient and informed consent was obtained. The patient was brought into the interventional radiology suite. A time out procedure was performed. The patient was placed in the prone position. The existing indwelling catheters and the area surrounding the insertion sites were prepped and draped in a sterile fashion. The left catheter was addressed first. Contrast was injected through the existing left Nephrostomy catheter. Images demonstrate good catheter position. The existing catheter was cut and removed over the guide wire. A new 10 F Resolve catheter was advanced over the guide wire. The guidewire was removed and the distal loop of the nephrostomy drainage catheter was formed and locked in the renal pelvis. Contrast was injected, confirming satisfactory drainage catheter position. The right catheter was then addressed. Contrast was injected through the existing right Nephrostomy catheter. Images demonstrate good catheter position. The existing catheter was cut and removed over the guide wire. A new 10 F Resolve catheter was advanced over the guide wire. The guidewire was removed and the distal loop of the nephrostomy drainage catheter was formed and locked in the renal pelvis. Contrast was injected, confirming satisfactory drainage catheter position. The drainage catheter exit sites was covered with sterile dressing. The nephrostomy drainage catheters were flushed and connected to gravity drainage bags. The patient tolerated the procedure well and there were no immediate complications. This procedure was performed using fluoroscopy. Impression: Successful exchange of bilateral nephrostomy urinary diversion tubes as discussed above. Plan: Routine catheter exchange and approximately 10-12 weeks or earlier if signs of tube dysfunction were to occur. Reviewed by OFELIA Green 01/31/2017 11:08 ASigned by Dustin Calderon MD 01/31/2017 01:35 P
== END ==
LOC: M RADPRO 08:20
PROVIDERS: ATTEND Radiology Diagnostic Radiology
DX: C61 Malignant neoplasm of prostate (principal); N13.30 Unspecified hydronephrosis; Z79.2 Long term (current) use of antibiotics; Z79.899 Other long term (current) drug therapy
CPT/HCPCS: 50435; 75984; C1729; C1769; Q9967

== ENCOUNTER 2017-04-03 11:14 | Day surgery (SDC) | payer MEDICARE, BC, OTHER ==
[~2017-04-03] VITALS: Ht 177.8 cm; Wt 78.9 kg
[~2017-04-03 11:14] MED LIST changes: -CIPR500T3 PO; -ISOVUE-300 61% 50ML VIAL (Q9967) As Ordered ONE; +LIDOCAINE 2% INJ 100 MG/5 ML SDV (FOR ANES.) As Ordered ONE; +MIDAZOLAM INJ 2 MG/2 ML VIAL (J2250) As Ordered ONE; -NITROFURANTOIN (MACROBID) 100 MG CAP As Ordered ONE; +ONDANSETRON 4MG/2ML VIAL (J2405) As Ordered ONE; +PROPOFOL 200 MG/20 ML VIAL As Ordered ONE; -TYLE650T35 PO; +fentaNYL 100 MCG/2 ML INJECTION (J3010) As Ordered ONE
[2017-04-03] MEDS ORDERED: LR 1,000 ML IV ONE (11:15)
[2017-04-03] MEDS ORDERED: CONRAY-60 60% 50ML VIAL (Q9961) As Ordered ONE (12:21)
[2017-04-03] MEDS ORDERED: LIDOCAINE 2% 5ML JELLY UROJET As Ordered ONE (12:37)
[2017-04-03] MEDS ORDERED: SUCCINYLCHOLINE 100 MG/5 ML SYRINGE (J0330) As Ordered ONE (13:12)
[2017-04-03] MEDS ORDERED: PHENYLephrine HCL 500 MCG/5 ML (100MCG/ML) SYRINGE (J2370) As Ordered ONE (13:12)
[2017-04-03] MEDS ORDERED: ROCURONIUM BROMIDE 50 MG/5 ML VIAL/SYRINGE As Ordered ONE (13:12)
--- NOTE | 2017-04-03 13:46 | REP ---
Retrograde pyelogram intraoperative fluoroscopic images: A series of five intraoperative fluoroscopic images are performed during placement of a right ureteral stent. Final film demonstrates the proximal and distal pigtails in satisfactory locations. Fluoroscopic exposure time is 24 seconds. Fluoroscopic images are performed with last image hold technology and require no additional radiation. Signed by Efra Rose MD 04/03/2017 01:37 P
[2017-04-03] MEDS ORDERED: TYLE650T35 PO (13:48)
[2017-04-03] MEDS ORDERED: CIPR500T3 PO (13:48)
[2017-04-03] MEDS ORDERED: NS 1,000 ML IV SCH (14:15)
[2017-04-03] MEDS ORDERED: ACETAMINOPHEN TAB 650MG DOSE (2X325MG) PO PRN (14:15)
[2017-04-03] MEDS ORDERED: ONDANSETRON 4MG/2ML VIAL (J2405) IV PRN (14:15)
[2017-04-03] MEDS ORDERED: fentaNYL 100 MCG/2 ML INJECTION (J3010) IV PRN (14:15)
[2017-04-03 14:50] VITALS: BP 171/74
[2017-04-03] MEDS ORDERED: CIPROFLOXACIN 500 MG TAB PO SCH (18:00)
--- NOTE | 2017-04-05 16:14 | RO ---
DATE OF PROCEDURE: 04/03/2017 PREOPERATIVE DIAGNOSES: Bilateral hydronephrosis and prostate cancer. POSTOPERATIVE DIAGNOSES: Bilateral hydronephrosis and prostate cancer. PROCEDURE: Cystoscopy, plus urethral dilatation, plus right retrograde pyelogram, plus right double J stent placement #6-Moroccan Sumter Cook. SURGEON: Sriram Law MD MASH TUB COOKER: None. ANESTHESIA: Monitored anesthesia care (MAC). FINDINGS: Right mild hydronephrosis. Left ureteral orifice invaded by locally advanced prostate cancer. Could not find left ureteral orifice, and patient had lost his left nephrostomy tube prior to the procedure in the morning. COMPLICATIONS: None. ESTIMATED BLOOD LOSS: N/A. HISTORY OF PRESENT ILLNESS: This is an 82-year-old male patient that has bilateral hydronephrosis and locally advanced prostate cancer treated with XRT and LHRH analogs. He had bilateral nephrotomy tubes placed. He has lost both the bilateral nephrostomy tubes. They have pulled out prior to this procedure. For this reason, he has consented for a cystoscopy, plus possible bilateral retrograde pyelogram, possible bilateral double J stent placement. PROCEDURE DESCRIPTION: In a patient under MAC anesthesia in supine modified low lithotomy position, after prepping and draping the area of concern, which included the entire genitalia and abdomen, we started by introducing a Rafaela urethral dilators to dilate the urethra to a maximum Charriere of #20-Moroccan. We then proceeded to actually pass the cystoscope under videoendoscopic guidance. The fossa navicularis, penile urethra, bulbar urethra, and membranous urethra were totally normal. The prostatic urethra had lateral lobes touching. There was a small middle lobe. There was solid prostatic tissue involving the mid trigone and the left trigone. We then could actually visualize, after very difficult visualization of all the bladder, dome, right lateral wall, posterior wall, and left lateral wall. We could identify the right ureteral orifice at that moment in time. We actually, with a Pollack catheter, catheterized the right ureteral orifice, which was very difficult to catheterize. We had to pass a filiform guidewire through it and then pass the Pollack catheter to the distal ureter. We then shot a retrograde pyelogram where we could see mild hydronephrosis on the right side. For this reason, we passed a guidewire up to the kidney, took the Pollack catheter out, and decided to place a right double J stent, #6-Moroccan Sumter Cook. We then proceeded to actually try to localize the left ureteral orifice. We think that the locally advanced prostate cancer is obstructing the left ureteral orifice. We could not find it all. Patient had multiple solid diverticula, also. For this reason, after attempting multiple times to actually find the left ureteral orifice, we declared to finish the procedure. We emptied the bladder and took the cystoscope out. PLAN: The patient will go home today with antibiotic and Tylenol for pain. He will followup in 1-2 weeks at [facility]. We will coordinate that he has a MAG3 renal scan with Lasix to see which kidney functions better. He has no flank pain on the left side, nor on the right side. He has a creatinine of 2.3. We will put an order also for a left percutaneous nephrostomy tube in elective fashion. We will continue his therapy with LHRH analogs and follow his prostate-specific antigen (PSA) accordingly, also. There were no complications during surgery.
== END 2017-04-03 15:05 | disposition home or self-care (01) ==
LOC: M SDC 11:14
PROVIDERS: ATTEND Urology
DX: N13.30 Unspecified hydronephrosis (principal); C61 Malignant neoplasm of prostate; I10 Essential (primary) hypertension; Z79.899 Other long term (current) drug therapy; Z87.440 Personal history of urinary (tract) infections; Z95.0 Presence of cardiac pacemaker; Z92.3 Personal history of irradiation; Z96.1 Presence of intraocular lens
CPT/HCPCS: 36415; 52332; 74420; 86850; 86900; 86901; 96374; C1769; C2617; J0330; J0690; J2250; J2370; J2405; J3010; Q9961

== ENCOUNTER → 2017-04-09 | Outpatient (CLI) | payer MEDICARE, BC, OTHER ==
[~2017-04-09] MED LIST changes: +CIPR500T3 PO; -LIDOCAINE 2% INJ 100 MG/5 ML SDV (FOR ANES.) As Ordered ONE; -MIDAZOLAM INJ 2 MG/2 ML VIAL (J2250) As Ordered ONE; -ONDANSETRON 4MG/2ML VIAL (J2405) As Ordered ONE; -PROPOFOL 200 MG/20 ML VIAL As Ordered ONE; +TYLE650T35 PO; -fentaNYL 100 MCG/2 ML INJECTION (J3010) As Ordered ONE
[2017-04-09 14:09] LABS: CALCIUM LEVEL 9.2 MG/DL (8.8-10.2); CREATININE FOR GFR 2.99 MG/DL (0.70-1.30); GLOMERULAR FILTRATION RATE 21.4 (>35)
== END ==
LOC: M SMT 09:26
PROVIDERS: ATTEND Nurse Practitioner Women's Health
DX: N13.1 Hydronephrosis with ureteral stricture, not elsewhere classified (principal)
CPT/HCPCS: 36415; 80048; G0463

== ENCOUNTER → 2017-04-23 | Outpatient (REF) | payer MEDICARE, OTHER | LOC: M SMT 13:06 | PROVIDERS: ATTEND Nurse Practitioner Women's Health | DX: N39.0 Urinary tract infection, site not specified (principal) ==

== ENCOUNTER → 2017-06-20 | Outpatient (CLI) | payer MEDICARE, OTHER | LOC: M ONCR 11:09 | DX: C61 Malignant neoplasm of prostate (principal) | CPT/HCPCS: G0463 ==

== ENCOUNTER 2017-06-27 17:20 | Emergency (ER) | payer MEDICARE, OTHER ==
[2017-06-27] MEDS: NS 500 ML IV (19:59)
[2017-06-27 20:07] LABS: BASO # 0.1 10^3/uL (0.0-0.2); BASO % 0.7 % (0.0-1.0); EOS # 0.3 10^3/uL (0.0-0.50); EOS % 3.2 % (0.0-3.0); HEMATOCRIT 38.5 % (42.0-52.0); HEMOGLOBIN 12.4 g/dl (14.0-18.0); IMMATURE GRANULOCYTE % 0.4 % (0-0); LYMPH # 0.8 10^3/uL (1.5-4.5); LYMPH % 10.1 % (24.0-44.0); MEAN CORPUSCULAR HEMOGLOBIN 31.6 pg (27.0-33.0); MEAN CORPUSCULAR HGB CONC 32.2 g/dl (32.0-36.5); MONO # 0.7 10^3/uL (0.0-0.8); MONO % 8.5 % (0.0-5.0); NEUTROPHILS # 6.3 10^3/uL (1.8-7.7); NEUTROPHILS % 77.1 % (36.0-66.0); PLATELET COUNT, AUTOMATED 248 10^3/uL (150-450); RED BLOOD COUNT 3.93 10^6/uL (4.30-6.10); RED CELL DISTRIBUTION WIDTH 12.6 % (11.5-14.5); WHITE BLOOD COUNT 8.1 10^3/uL (4.0-10.0)
[2017-06-27 20:13] LABS: AMORPHOUS SEDIMENT RFX SMALL (NEGATIVE); KETONE, URINE AUTO RFX NEGATIVE (NEGATIVE); LEUKOCYTE ESTERASE UR AUTO RFX 3+ (NEGATIVE); NITRITE, URINE AUTO RFX POSITIVE (NEGATIVE); RBC, URINE AUTO RFX TNTC /HPF (0-3); SPECIFIC GRAVITY UR AUTO RFX 1.012 (1.002-1.035); SQUAM EPITHELIAL CELL UR AURFX 4 /HPF (0-6); WBC, URINE AUTO RFX TNTC /HPF (0-3)
[2017-06-27 20:38] LABS: ALKALINE PHOSPHATASE 58 U/L (45-117); ALT/SGPT 12 U/L (12-78); ANION GAP 4 MEQ/L (8-16); AST/SGOT 14 U/L (7-37); BILIRUBIN,TOTAL 0.3 MG/DL (0.2-1.0); BLOOD UREA NITROGEN 38 MG/DL (7-18); C REACTIVE PROTEIN QUANTITATIV 3.75 MG/DL (0.00-0.30); CARBON DIOXIDE LEVEL 30 MEQ/L (21-32); CHLORIDE LEVEL 105 MEQ/L (98-107); CREATININE FOR GFR 3.39 MG/DL (0.70-1.30); GLOMERULAR FILTRATION RATE 18.5 (>35); GLUCOSE, FASTING 112 MG/DL (70-100); POTASSIUM SERUM 4.6 MEQ/L (3.5-5.1); SODIUM LEVEL 139 MEQ/L (136-145); TOTAL PROTEIN 7.3 GM/DL (6.4-8.2)
[2017-06-27 20:38] LABS: LACTIC ACID SEPSIS PROTOCOL 1.6 MMOL/L (0.4-2.0)
[2017-06-27] MEDS: CIPROFLOXACIN 200 MG in APPROPRIATE DILUENT 1 EA IV (21:45)
== END 2017-06-27 23:24 | disposition left against medical advice (07) ==
LOC: M ED 17:20
DX: N39.0 Urinary tract infection, site not specified (principal); N17.9 Acute kidney failure, unspecified; T83.092A Other mechanical complication of nephrostomy catheter, initial encounter; X58.XXXA Exposure to other specified factors, initial encounter; Y92.89 Other specified places as the place of occurrence of the external cause; I10 Essential (primary) hypertension; J44.9 Chronic obstructive pulmonary disease, unspecified; I25.10 Atherosclerotic heart disease of native coronary artery without angina pectoris; I48.91 Unspecified atrial fibrillation; Z85.46 Personal history of malignant neoplasm of prostate; Z95.0 Presence of cardiac pacemaker; Z87.891 Personal history of nicotine dependence
CPT/HCPCS: J0744

== ENCOUNTER 2017-07-18 08:12 | Day surgery (SDC) | payer MEDICARE, BC, OTHER ==
[2017-07-18] MEDS ORDERED: LIDOCAINE 2% INJ 100 MG/5 ML SDV (FOR ANES.) As Ordered (08:15)
[2017-07-18] MEDS ORDERED: fentaNYL 100 MCG/2 ML INJECTION (J3010) As Ordered (08:15)
[2017-07-18] MEDS ORDERED: PROPOFOL 200 MG/20 ML VIAL As Ordered (08:15)
[2017-07-18] MEDS ORDERED: ONDANSETRON 4MG/2ML VIAL (J2405) As Ordered (08:15)
[2017-07-18] MEDS ORDERED: dexameTHASONE 4 MG/ML 1ML VIAL (J1100) As Ordered (08:15)
[2017-07-18] MEDS ORDERED: MIDAZOLAM INJ 2 MG/2 ML VIAL (J2250) As Ordered (08:16)
[2017-07-18] MEDS ORDERED: ePHEDrine INJ 50 MG/ML VIAL As Ordered (10:32)
[2017-07-18] MEDS: CONRAY-60 60% 50ML VIAL (Q9961) As Ordered (10:50)
[2017-07-18] MEDS ORDERED: LR 1,000 ML IV (11:45)
[2017-07-18] MEDS ORDERED: ONDANSETRON 4MG/2ML VIAL (J2405) IV (11:45)
[2017-07-18] MEDS ORDERED: fentaNYL 100 MCG/2 ML INJECTION (J3010) IV (11:45)
== END 2017-07-18 12:57 | disposition home or self-care (01) ==
LOC: M SDC 08:12
DX: C61 Malignant neoplasm of prostate (principal); N13.30 Unspecified hydronephrosis; I10 Essential (primary) hypertension; J44.9 Chronic obstructive pulmonary disease, unspecified; N18.4 Chronic kidney disease, stage 4 (severe); I27.20 Pulmonary hypertension, unspecified; Z79.899 Other long term (current) drug therapy; Z92.3 Personal history of irradiation
CPT/HCPCS: 52332

== ENCOUNTER → 2017-08-09 | Outpatient (REF) | payer MEDICARE, OTHER ==
[2017-08-09 14:17] LABS: APPEARANCE, URINE TURBID (CLEAR); BACTERIA, URINE AUTO 2+ (NEGATIVE); BILIRUBIN, URINE AUTO NEGATIVE (NEGATIVE); BLOOD, URINE BLOOD 2+ (NEGATIVE); COLOR, URINE YELLOW (YELLOW); GLUCOSE, URINE (UA) AUTO NEGATIVE (NEGATIVE); KETONE, URINE AUTO NEGATIVE (NEGATIVE); LEUKOCYTE ESTERASE, URINE AUTO 3+ (NEGATIVE); NITRITE, URINE AUTO NEGATIVE (NEGATIVE); PROTEIN, URINE AUTO 2+ mg/dL (NEGATIVE); RBC, URINE AUTO 19 /HPF (0-3); SPECIFIC GRAVITY URINE AUTO 1.008 (1.002-1.035); SQUAMOUS EPITHELIAL CELL UR AU 0 /HPF (0-6); UROBILINOGEN, URINE AUTO 0.2 mg/dL (0.0-2.0); WBC, URINE AUTO TNTC /HPF (0-3)
== END ==
LOC: M SMT 13:35
DX: Z08 Encounter for follow-up examination after completed treatment for malignant neoplasm (principal); Z85.46 Personal history of malignant neoplasm of prostate; Z79.899 Other long term (current) drug therapy
CPT/HCPCS: 81001

== ENCOUNTER 2017-10-10 05:49 | Day surgery (SDC) | payer MEDICARE, BC, OTHER ==
[2017-10-10] MEDS: LR 1,000 ML IV (06:50)
[2017-10-10] MEDS ORDERED: LIDOCAINE 2% INJ 100 MG/5 ML SDV (FOR ANES.) As Ordered (07:12)
[2017-10-10] MEDS ORDERED: PROPOFOL 200 MG/20 ML VIAL As Ordered (07:12)
[2017-10-10] MEDS ORDERED: MIDAZOLAM INJ 2 MG/2 ML VIAL (J2250) As Ordered (07:13)
[2017-10-10] MEDS ORDERED: fentaNYL 100 MCG/2 ML INJECTION (J3010) As Ordered (07:13)
[2017-10-10] MEDS ORDERED: ONDANSETRON 4MG/2ML VIAL (J2405) As Ordered (07:50)
[2017-10-10] MEDS: CONRAY-60 60% 50ML VIAL (Q9961) As Ordered (07:57)
[2017-10-10] MEDS ORDERED: fentaNYL 100 MCG/2 ML INJECTION (J3010) IV (08:30)
[2017-10-10] MEDS ORDERED: LR 1,000 ML IV (08:30)
[2017-10-10] MEDS ORDERED: METOCLOPRAMIDE INJ 10MG/2ML VIAL (J2765) IV (08:30)
[2017-10-10] MEDS ORDERED: PERCOCET 5MG/325MG TAB PO (08:30)
[2017-10-10] MEDS ORDERED: ONDANSETRON 4MG/2ML VIAL (J2405) IV (08:30)
[2017-10-10] MEDS ORDERED: ACETAMINOPHEN 650MG ER TAB (TYLENOL ARTHRITIS) PO (14:00)
[2017-10-10] MEDS ORDERED: CIPROFLOXACIN 250 MG TAB PO (18:00)
== END 2017-10-10 09:50 | disposition home or self-care (01) ==
LOC: M SDC 05:49
DX: N13.30 Unspecified hydronephrosis (principal); C61 Malignant neoplasm of prostate; I12.9 Hypertensive chronic kidney disease with stage 1 through stage 4 chronic kidney disease, or unspecified chronic kidney disease; I48.0 Paroxysmal atrial fibrillation; J44.9 Chronic obstructive pulmonary disease, unspecified; N18.4 Chronic kidney disease, stage 4 (severe); Z95.0 Presence of cardiac pacemaker; E78.2 Mixed hyperlipidemia; Z87.891 Personal history of nicotine dependence; Z79.82 Long term (current) use of aspirin; Z79.899 Other long term (current) drug therapy
CPT/HCPCS: 52332

== ENCOUNTER → 2017-12-14 | Outpatient (CLI) | payer MEDICARE, BC, OTHER ==
[2017-12-14 18:17] LABS: PROSTATIC SPECIFIC AG MONITOR 0.24 NG/ML (< 4.0)
== END ==
LOC: M SMT 12:07
DX: C61 Malignant neoplasm of prostate (principal)
CPT/HCPCS: 84153

== ENCOUNTER → 2017-12-19 | Outpatient (CLI) | payer MEDICARE, BC, OTHER | LOC: M ONCR 10:59 | DX: C61 Malignant neoplasm of prostate (principal) | CPT/HCPCS: G0463 ==

== ENCOUNTER 2018-01-17 07:10 | Day surgery (SDC) | payer MEDICARE, BC, OTHER ==
[~2018-01-17 07:10] MED LIST changes: -CALC600T57 PO; -CEFD1CAP8 PO; -CIPR500T3 PO; -ENAL20TA PO; -ENAL5TAB PO; +LIDOCAINE 1% MDV 20ML VIAL SQ; +LR 1,000 ML IV; -TYLE650T35 PO; -VITATAB26 PO; -VITMTA PO
[2018-01-17] MEDS ORDERED: fentaNYL 100 MCG/2 ML INJECTION (J3010) As Ordered ×2 (07:54)
[2018-01-17] MEDS ORDERED: MIDAZOLAM INJ 2 MG/2 ML VIAL (J2250) As Ordered ×2 (07:54)
[2018-01-17] MEDS ORDERED: PROPOFOL 200 MG/20 ML VIAL As Ordered ×2 (07:56)
[2018-01-17] MEDS ORDERED: LIDOCAINE 2% INJ 100 MG/5 ML SDV (FOR ANES.) As Ordered ×2 (07:56)
[2018-01-17] MEDS: CONRAY-60 60% 50ML VIAL (Q9961) As Ordered ×2 (09:03)
[2018-01-17] MEDS: cefTRIAXone SOD 1 GM in D5W MINI-BAG PLUS 50 ML IV (09:16)
[2018-01-17] MEDS ORDERED: ePHEDrine SULFATE 25 MG/5 ML(5MG/ML) SYRINGE As Ordered ×2 (09:27)
[2018-01-17] MEDS ORDERED: ONDANSETRON 4MG/2ML VIAL (J2405) As Ordered ×2 (09:27)
[2018-01-17] MEDS ORDERED: dexameTHASONE 4 MG/ML 1ML VIAL (J1100) As Ordered ×2 (09:27)
[2018-01-17] MEDS ORDERED: HYDROMORPHONE HCL 0.5 MG/ 0.5 ML SYRINGE (J1170 PER 1) IV ×2 (10:15)
[2018-01-17] MEDS ORDERED: PERCOCET 5MG/325MG TAB PO ×2 (10:15)
[2018-01-17] MEDS ORDERED: fentaNYL 100 MCG/2 ML INJECTION (J3010) IV ×2 (10:15)
[2018-01-17] MEDS ORDERED: ONDANSETRON 4MG/2ML VIAL (J2405) IV ×2 (10:15)
[2018-01-17] MEDS ORDERED: LR 1,000 ML IV ×2 (10:15)
[2018-01-17] MEDS ORDERED: ACETAMINOPHEN 650MG ER TAB (TYLENOL ARTHRITIS) PO ×2 (14:00)
[2018-01-17] MEDS ORDERED: CIPROFLOXACIN 250 MG TAB PO ×2 (18:00)
== END 2018-01-17 12:17 | disposition home or self-care (01) ==
LOC: M SDC 07:10
DX: N13.30 Unspecified hydronephrosis (principal); C61 Malignant neoplasm of prostate; I48.0 Paroxysmal atrial fibrillation; I12.9 Hypertensive chronic kidney disease with stage 1 through stage 4 chronic kidney disease, or unspecified chronic kidney disease; E78.5 Hyperlipidemia, unspecified; J44.9 Chronic obstructive pulmonary disease, unspecified; R06.83 Snoring; N18.9 Chronic kidney disease, unspecified; R00.1 Bradycardia, unspecified; R55 Syncope and collapse; R35.1 Nocturia; Z79.899 Other long term (current) drug therapy; Z92.3 Personal history of irradiation; Z95.0 Presence of cardiac pacemaker
CPT/HCPCS: 52332

== ENCOUNTER → 2018-03-19 | Outpatient (CLI) | payer MEDICARE, BC, OTHER ==
[2018-03-19 17:37] LABS: PROSTATIC SPECIFIC AG MONITOR 0.36 NG/ML (< 4.0)
== END ==
LOC: M SMT 15:36
DX: C61 Malignant neoplasm of prostate (principal)
CPT/HCPCS: 84153

== ENCOUNTER 2018-04-15 08:33 | Day surgery (SDC) | payer MEDICARE, BC, OTHER ==
[2018-04-15] MEDS: LR 1,000 ML IV (08:45)
[2018-04-15] MEDS ORDERED: LIDOCAINE 2% INJ 100 MG/5 ML SDV (FOR ANES.) As Ordered (10:28)
[2018-04-15] MEDS ORDERED: fentaNYL 100 MCG/2 ML INJECTION (J3010) As Ordered (10:28)
[2018-04-15] MEDS ORDERED: PROPOFOL 200 MG/20 ML VIAL As Ordered (10:28)
[2018-04-15] MEDS ORDERED: MIDAZOLAM INJ 2 MG/2 ML VIAL (J2250) As Ordered (10:28)
[2018-04-15] MEDS: LIDOCAINE 2% 5ML JELLY UROJET As Ordered (11:34)
[2018-04-15] MEDS: CONRAY-60 60% 50ML VIAL (Q9961) As Ordered (11:44)
== END 2018-04-15 12:42 | disposition home or self-care (01) ==
LOC: M SDC 08:33
DX: N13.30 Unspecified hydronephrosis (principal); C61 Malignant neoplasm of prostate; I48.0 Paroxysmal atrial fibrillation; I12.9 Hypertensive chronic kidney disease with stage 1 through stage 4 chronic kidney disease, or unspecified chronic kidney disease; N18.4 Chronic kidney disease, stage 4 (severe); J44.9 Chronic obstructive pulmonary disease, unspecified; Z95.0 Presence of cardiac pacemaker; Z92.3 Personal history of irradiation; Z98.41 Cataract extraction status, right eye; Z98.42 Cataract extraction status, left eye; Z96.1 Presence of intraocular lens
CPT/HCPCS: 52332

== ENCOUNTER → 2018-07-08 | Outpatient (REF) | payer MEDICARE, OTHER ==
[~2018-07-08] MED LIST changes: +AMLO5TAB6 PO; +CALC600T57 PO; +CEFD1CAP8 PO; +CIPR-250 PO; +CIPR250T3 PO; +CIPR500T3 PO; +ENAL20TA PO; +ENAL5TAB PO; +IPRA0.00 NEB; -LIDOCAINE 1% MDV 20ML VIAL SQ; -LR 1,000 ML IV; +TYLE650T35 PO; +VITA20008 PO; +VITATAB26 PO; +VITMTA PO
[2018-07-08 19:22] LABS: APPEARANCE, URINE CLOUDY (CLEAR); BACTERIA, URINE AUTO NEGATIVE (NEGATIVE); BILIRUBIN, URINE AUTO NEGATIVE (NEGATIVE); BLOOD, URINE BLOOD 3+ (NEGATIVE); COLOR, URINE YELLOW (YELLOW); GLUCOSE, URINE (UA) AUTO NEGATIVE (NEGATIVE); KETONE, URINE AUTO NEGATIVE (NEGATIVE); LEUKOCYTE ESTERASE, URINE AUTO 3+ (NEGATIVE); NITRITE, URINE AUTO NEGATIVE (NEGATIVE); PROTEIN, URINE AUTO 2+ mg/dL (NEGATIVE); RBC, URINE AUTO TNTC /HPF (0-3); SPECIFIC GRAVITY URINE AUTO 1.012 (1.002-1.035); SQUAMOUS EPITHELIAL CELL UR AU 0 /HPF (0-6); UROBILINOGEN, URINE AUTO 0.2 mg/dL (0.0-2.0); WBC, URINE AUTO TNTC /HPF (0-3)
== END ==
LOC: M SMT 16:57
PROVIDERS: ATTEND Urology
DX: N39.0 Urinary tract infection, site not specified (principal)

== ENCOUNTER 2018-07-17 05:59 | Day surgery (SDC) | payer MEDICARE, BC, OTHER ==
[~2018-07-17] VITALS: Ht 177.8 cm; Wt 77.1 kg
[~2018-07-17 05:59] MED LIST changes: -IPRA0.00 NEB
[2018-07-17 06:48] LABS: INR 0.98; PROTHROMBIN TIME 13.1 SECONDS (12.1-14.4)
[2018-07-17] MEDS ORDERED: IPRA0.00 NEB (06:56)
[2018-07-17] MEDS ORDERED: NS 1,000 ML IV SCH (07:00)
[2018-07-17] MEDS ORDERED: fentaNYL 100 MCG/2 ML INJECTION (J3010) As Ordered ONE (07:11)
[2018-07-17] MEDS ORDERED: PROPOFOL 200 MG/20 ML VIAL As Ordered ONE ×2 (07:12→08:16)
[2018-07-17] MEDS ORDERED: LIDOCAINE 2% INJ 100 MG/5 ML SDV (FOR ANES.) As Ordered ONE (07:12)
[2018-07-17] MEDS ORDERED: dexameTHASONE 4 MG/ML 1ML VIAL (J1100) As Ordered ONE (07:12)
[2018-07-17] MEDS ORDERED: ONDANSETRON 4MG/2ML VIAL (J2405) As Ordered ONE (07:12)
[2018-07-17] MEDS ORDERED: CONRAY-60 60% 50ML VIAL (Q9961) As Ordered ONE (07:14)
[2018-07-17] MEDS ORDERED: IPRATROPIUM 0.5MG/ALBUTEROL 2.5MG INH SOL UD 3ML (DUONEB)(J7620) As Ordered ONE (07:22)
[2018-07-17] MEDS ORDERED: LIDOCAINE 2% 5ML JELLY UROJET As Ordered ONE (07:34)
[2018-07-17] MEDS ORDERED: IPRATROPIUM 0.5MG/ALBUTEROL 2.5MG INH SOL UD 3ML (DUONEB)(J7620) NEB ONE (08:00)
[2018-07-17 09:06] VITALS: BP 134/85
--- NOTE | 2018-07-17 10:05 | REP ---
C-ARM VIEWS DURING URETERAL STENT PLACEMENT: Multiple C-arm views are performed during ureteral stent placement. Contrast partially opacified a moderately dilated pelvicaliceal system bilaterally. There are bilateral ureteral stents. The proximal ends are in the renal pelvis and the distal ends in the region of the urinary bladder. 50 seconds of fluoroscopy time utilized. Electronically Signed by Efra Enrique MD 07/17/2018 10:46 A
--- NOTE | 2018-07-19 12:56 | RO ---
DATE OF PROCEDURE: 07/17/2018 PREPROCEDURE DIAGNOSIS: Bilateral ureteral obstruction, prostate cancer. POSTPROCEDURE DIAGNOSIS: Bilateral ureteral obstruction, prostate cancer. PROCEDURE: Cystoscopy, bilateral ureteral stent exchange, bilateral retrograde pyelogram with intraoperative interpretation of images. SURGEON: Dr. Blake Augustine SHOVEL LOADER OPERATOR: None. ANESTHESIA: MAC. OPERATIVE INDICATIONS: This is an 83-year-old male with bilateral ureteral obstruction and prostate cancer which is being managed with chronic ureteral stenting. He is here today for routine stent exchange. DESCRIPTION OF PROCEDURE: The patient was brought to the operating room and MAC anesthesia was induced. Prophylactic antibiotics were infused. He was then placed in the dorsal lithotomy position and prepped and draped in the usual sterile fashion. The rigid cystoscope then inserted through the urethral meatus and advanced to the bladder. Once inside the bladder, the previously placed stents were seen. We then grasped the right ureteral stent and withdrew it until the distal end was seen protruding from the urethral meatus. A wire was then advanced up the right collecting system and then the stent was removed completely. I then advanced an open ended ureteral catheter up to the right collecting system and then the wire was removed. A retrograde pyelogram was performed and was notable for moderate right hydronephrosis and no extravasation. I then advanced a wire back up the right collecting system and then removed the ureteral catheter. I then utilized that wire to advance a 7 Hong Konger x 22-32 cm JJ ureteral stent up the right collecting system. The wire was then removed and there were adequate curls of the stent in the right renal pelvis and the bladder. At this point, the cystoscope was reintroduced and then the left ureteral stent was grasped and withdrawn until the distal end was seen protruding from the urethral meatus. I then advanced a wire up the left collecting system and then removed the stent. Once that was done, an open ended ureteral catheter was advanced over the wire up to the left collecting system and then the wire was removed. A retrograde pyelogram was performed on the left side and notable for moderate left hydronephrosis and no extravasation. At this point, a wire was advanced back up the left collecting system and then the open ended ureteral catheter was removed. This wire was then utilized to advance a 7 Hong Konger x 22-32 JJ ureteral stent up the left collecting system. The wire was then removed. There were adequate curls of the stent in the left renal pelvis and the bladder. The bladder was emptied of all fluids and this marked the conclusion of the procedure. The patient was then taken out of dorsal lithotomy position, awakened from anesthesia and transported to the recovery room in stable condition. Estimated blood loss 5 mL. Complications: None. Specimens: None. Plan: The patient will followup in the clinic in approximately 2 months to get set up for his next stent exchange. He will also require an Eligard shot for prostate cancer at that time.
== END 2018-07-17 09:30 | disposition home or self-care (01) ==
LOC: M SDC 05:59
PROVIDERS: ATTEND Urology
DX: N13.1 Hydronephrosis with ureteral stricture, not elsewhere classified (principal); C61 Malignant neoplasm of prostate; Z92.3 Personal history of irradiation; I48.91 Unspecified atrial fibrillation; Z95.0 Presence of cardiac pacemaker; I12.9 Hypertensive chronic kidney disease with stage 1 through stage 4 chronic kidney disease, or unspecified chronic kidney disease; Z79.899 Other long term (current) drug therapy; J44.9 Chronic obstructive pulmonary disease, unspecified; N18.4 Chronic kidney disease, stage 4 (severe)
CPT/HCPCS: 36415; 52332; 74420; 85610; C1769; C2617; J0690; J1100; J2405; J3010; Q9961

== ENCOUNTER 2018-08-28 13:06 | Inpatient (IN) | payer MEDICARE, BC, OTHER ==
[~2018-08-28] VITALS: Ht 170.2 cm; Wt 75.2 kg
[~2018-08-28 13:06] MED LIST changes: +IPRA0.00 NEB
[2018-08-28] MEDS ORDERED: LIDOCAINE 2% 5ML JELLY UROJET TOP ONE (14:45)
[2018-08-28 15:22] LABS: HEMATOCRIT 34.8 % (42.0-52.0); HEMOGLOBIN 11.1 g/dl (13.5-17.5); MEAN CORPUSCULAR HEMOGLOBIN 32.1 pg (27.0-33.0); MEAN CORPUSCULAR HGB CONC 31.9 g/dl (32.0-36.5); MEAN CORPUSCULAR VOLUME 100.6 fl (80.0-96.0); PLATELET COUNT, AUTOMATED 261 10^3/uL (150-450); RED BLOOD COUNT 3.46 10^6/uL (4.30-6.10); WHITE BLOOD COUNT 10.3 10^3/uL (4.0-10.0)
[2018-08-28 15:35] LABS: BLOOD UREA NITROGEN 85 MG/DL (7-18); CALCIUM LEVEL 8.9 MG/DL (8.8-10.2); CARBON DIOXIDE LEVEL 20 MEQ/L (21-32); CHLORIDE LEVEL 108 MEQ/L (98-107); CREATININE FOR GFR 7.28 MG/DL (0.70-1.30); GLOMERULAR FILTRATION RATE 7.6 (>35); GLUCOSE, FASTING 106 MG/DL (70-100); MAGNESIUM LEVEL 2.6 MG/DL (1.8-2.4); POTASSIUM SERUM 5.9 MEQ/L (3.5-5.1); SODIUM LEVEL 137 MEQ/L (136-145)
[2018-08-28 15:57] LABS: ALT/SGPT 15 U/L (12-78); BILIRUBIN,DIRECT < 0.1 MG/DL (0.0-0.2); BILIRUBIN,TOTAL 0.5 MG/DL (0.2-1.0); TOTAL PROTEIN 7.4 GM/DL (6.4-8.2)
--- NOTE | 2018-08-28 16:16 | REP ---
KUB: Single view. History: Stent placement. Findings: Bilateral double pigtail ureteral stents are noted in place. Prostate fiducial markers are visible. The bowel gas pattern is normal. Psoas margins are symmetric. There are mild degenerative changes in the lumbar spine. Impression: Bilateral double pigtail ureteral stents noted in place. Electronically Signed by Dustin Calderon MD 08/28/2018 04:08 P
[2018-08-28] MEDS ORDERED: NS 500 ML IV ONE (16:45)
[2018-08-28] MEDS ORDERED: PATIROMER SORBITEX CALCIUM 8.4 GM POWDER PACKET (VELTASSA) PO ONE ×2 (17:30→21:00)
--- NOTE | 2018-08-28 17:55 | REP ---
Clinical: Acute renal failure. Comparison: 06/27/2017. Technique: Axial noncontrast images from the lung bases to the pubic symphysis with coronal and sagittal re-formations. Findings: Despite bilateral ureteral stents in satisfactory position, the kidneys demonstrate moderate hydronephrosis which appears slightly more pronounced than prior examination. Chronic bilateral perinephric stranding and periureteral stranding is essentially unchanged. Shultz catheter identified in collapsed bladder along with the bilateral ureteral stents. Liver, spleen, pancreas, and bilateral adrenal glands appear stable/within normal limits. Cholelithiasis again suggested without acute cholecystitis. The enteric system demonstrates moderate fecal stasis and diffuse diverticulosis without obstruction or acute inflammatory process. There is a large left inguinal hernia containing fat and nonobstructed loop of sigmoid colon. Normal terminal ileum and appendix identified in the right lower quadrant. No ascites. No free air. No adenopathy. Atherosclerotic changes to the aorta and vasculature without aneurysm. Musculoskeletal structures demonstrate degenerative changes. Lung bases demonstrate chronic COPD/emphysematous disease. Impression: 1. Moderate bilateral hydronephrosis mildly increased from prior examination despite bilateral ureteral stents in satisfactory position. Shultz catheter in collapsed bladder. 2. Left inguinal hernia containing fat and nonobstructed sigmoid colon. 3. Diffuse diverticulosis without acute diverticulitis. 4. Cholelithiasis without acute cholecystitis. Electronically Signed by Priyank Roque MD 08/28/2018 05:46 P
[2018-08-28 18:40] VITALS: BP 150/60
[2018-08-28] MEDS: NS 1,000 ML IV SCH (18:55)
[2018-08-28] MEDS ORDERED: SODIUM BICARBONATE 8.4% INJ 50 ML SYRINGE IV ONE (21:15)
[2018-08-28 22:00] VITALS: BP 135/65
[2018-08-28] MEDS: CIPROFLOXACIN 200 MG in APPROPRIATE DILUENT 1 EA IV SCH (22:04)
[2018-08-29] MEDS ORDERED: ONDANSETRON 4MG/2ML VIAL (J2405) IV PRN (04:45)
[2018-08-29 06:00] VITALS: BP 132/76
[2018-08-29] MEDS: NS 1,000 ML IV SCH ×2 (06:15→15:43)
[2018-08-29 06:55] LABS: BASO % 0.1 % (0.0-1.0); EOS % 0.3 % (0.0-3.0); HEMATOCRIT 32.3 % (42.0-52.0); HEMOGLOBIN 10.4 g/dl (13.5-17.5); MEAN CORPUSCULAR HEMOGLOBIN 31.8 pg (27.0-33.0); MEAN CORPUSCULAR HGB CONC 32.2 g/dl (32.0-36.5); MEAN CORPUSCULAR VOLUME 98.8 fl (80.0-96.0); MONO # 0.2 10^3/uL (0.0-0.8); MONO % 2.7 % (0.0-5.0); NEUTROPHILS # 7.4 10^3/uL (1.8-7.7); NEUTROPHILS % 93.6 % (36.0-66.0); PLATELET COUNT, AUTOMATED 211 10^3/uL (150-450); RED BLOOD COUNT 3.27 10^6/uL (4.30-6.10); WHITE BLOOD COUNT 7.9 10^3/uL (4.0-10.0)
--- NOTE | 2018-08-29 06:59 | HPE ---
DATE OF ADMISSION: 08/28/2018 83-year-old male with past medical history of advanced dementia, history of hypertension, atrial fibrillation, chronic obstructive pulmonary disease (COPD), hyperlipidemia, prostate cancer with chronic urinary obstruction, status post bilateral ureteral stent placements, recently replaced by Dr. Augustine on 07/19/2018, presents to the emergency room due to abnormal labs. The patient went to his primary medical doctor, who just did basic chemistries and complete blood count (CBC) and who found that his creatinine was 7 and normally his creatinine runs between 2.9 and 3, so he came to the emergency room (ER) for evaluation. In the ER, he is completely asymptomatic, not uremic. They put a Shultz in, and approximately 1500 mL of urine was expressed. Repeat creatinine was 7.28. Patient was given Veltassa for the creatinine of 5.9, even though there was no peaked T's on the EKG. Nephrology and urology have been informed, and they will be on consult to help us in this case. 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 He will be admitted for further management. PAST MEDICAL HISTORY: 1. Prostate cancer with chronic urinary retention, status post bilateral ureteral stent placement. 2. Hypertension. 3. Atrial fibrillation 4. COPD. 5. Hyperlipidemia. 6. History of pacemaker placement. ALLERGIES: He has no known drug allergies. FAMILY HISTORY: Noncontributory. SOCIAL HISTORY: Patient used to be a heavy smoker, quit approximately 20 years ago. Does not drink alcohol or use illicit drugs. MEDICATION HE TAKES AT HOME ARE FOLLOWS: - amlodipine 5 mg orally daily - cholecalciferol 2000 units orally daily - multivitamin one tablet orally daily REVIEW OF SYSTEMS: Cannot be assessed. VITAL SIGNS: Blood pressure is 134/67. Heart rate is 86, regular. Respiratory rate 18. Temperature 97.9. Oxygen saturation 94% on room air. HEAD: Atraumatic normocephalic. NECK: Supple. No jugular venous distension (JVD). LUNGS: Clear to auscultation. HEART: S1, S2 audible. No murmurs appreciated. ABDOMEN: Soft. Positive bowel sounds. No pedal edema. SKIN: Intact. NEUROLOGIC EXAMINATION: Patient awake, alert, oriented times 0. WBC 10.3, hemoglobin is 11.1, hematocrit is 34.8, platelets are 261,000. Sodium 137, potassium 5.8 non-hemolyzed, chloride 108, CO2 of 20, anion gap 9, BUN is 85, creatinine is 7.28, glucose 106. Urinalysis is suggestive of a UTI. IMPRESSION: 1. Acute kidney injury (BONI). 2. Obstructive uropathy. 3. Urinary tract infection. PLAN: Patient will be admitted to progressive care unit (PCU). Nephrology and neurology are on consult. We will be looking forward to their recommendations. At this time, we can just monitor strict intake and output and will follow BUN and creatinine trends daily. Patient should improve now that the obstruction has been relieved. I will give him a renal dose of IV Cipro until we get our culture and sensitivities from the urinalysis. Will continue his preadmission medications and continue his care on the medical/surgical floor.
[2018-08-29 07:21] LABS: LYMPH # 0.2 10^3/uL (1.5-4.5)
[2018-08-29 07:24] LABS: CALCIUM LEVEL 9.2 MG/DL (8.8-10.2); CREATININE FOR GFR 7.21 MG/DL (0.70-1.30); GLOMERULAR FILTRATION RATE 7.7 (>35); POTASSIUM SERUM 4.9 MEQ/L (3.5-5.1)
--- NOTE | 2018-08-29 07:47 | REP ---
Clinical: Acute renal failure. Technique: Real time boo scale and color Doppler ultrasound examination using curved array transducer. Findings: Bilateral kidneys demonstrates severe hydronephrosis and hydroureter with bilateral ureteral stents in satisfactory position. Right kidney measures 13.0 x 6.9 x 6.6 cm (RI 0.= 84) . Left kidney measures 11.3 x 4.8 x 5.1 cm (RI = 0.77) . Bladder demonstrates irregular wall thickening and septations. Prostate gland is heterogeneous and measures 3.5 x 3.2 x 3.4 cm. Impression: 1. Bilateral severe hydroureteronephrosis with bilateral ureteral stents in satisfactory position. 2. Chronic irregular wall thickening to the bladder. Electronically Signed by Priyank Roque MD 08/28/2018 04:05 P
--- NOTE | 2018-08-29 07:47 | REP ---
Clinical: Scrotal swelling. Technique: Real time boo scale and color Doppler evaluation using linear high frequency transducer. Findings: The bilateral testicles and epididymi are heterogeneous but relatively normal in vascularity and without evidence for torsion, infectious/inflammatory process, or mass lesion. Moderate bilateral hydroceles are identified along with moderate nonreducible fat-containing left inguinal hernia. No varicoceles. Right testicle measures 3.0 x 1.0 x 1.4 cm. Left testicle measures 2.1 x 1.2 x 1.4 cm. Impression: 1. Moderate nonreducible fat-containing left inguinal hernia. 2. Small bilateral hydroceles. Electronically Signed by Priyank Roque MD 08/28/2018 04:11 P
[2018-08-29] MEDS: CIPROFLOXACIN 200 MG in APPROPRIATE DILUENT 1 EA IV SCH ×2 (08:46→21:33)
--- NOTE | 2018-08-29 10:16 | ECGEPIP ---
Stationary ECG Study [facility] - ED Test Date: 2018-08-28 Pat Name: HARRISON TALBOT Department: Room: - Gender: M [employer]: [facility] : 1935 Requested By: KATIE Cash PA-C Order Number: [id number] Reading MD: Allyssa Combs Measurements Intervals Hamel Rate: 71 P: [place]: 0 QRS: -66 QRSD: 162 T: 88 QT: 422 QTc: 461 Interpretive Statements ELECTRONIC VENTRICULAR PACEMAKER ABNORMAL RHYTHM ECG SIMILAR 10/10/17 Electronically Signed On 08-29-2018 10:16:39 EDT by Allyssa Combs
[2018-08-29] MEDS: ALBUTEROL SULFATE 2.5 MG/0.5 ML INH NEB SOLN NEB SCH ×2 (15:04→20:10)
[2018-08-29 18:06] LABS: PARTIAL THROMBOPLASTIN TIME 30.3 SECONDS (25.4-37.6)
[2018-08-29 18:14] LABS: INR 1.12; PROTHROMBIN TIME 14.6 SECONDS (12.1-14.4)
--- NOTE | 2018-08-29 20:05 | REP ---
Clinical: Hydronephrosis. Technique: Real time boo scale and color evaluation using curved array transducer. Findings: Kidneys demonstrate moderate bilateral hydronephrosis which has improved from prior examination. Bilateral stents are in satisfactory position. Shultz catheter identified in collapsed bladder. Impression: Moderate bilateral hydronephrosis mildly improved compared to prior examination. Electronically Signed by Priyank Roque MD 08/29/2018 07:57 P
[2018-08-29] MEDS: NS 0.45% 1,000 ML IV SCH (21:33)
--- NOTE | 2018-08-29 22:09 | CR ---
DATE OF CONSULTATION: 08/29/2018 REQUESTING PHYSICIAN: Dr. Dre Landrum REASON FOR CONSULTATION: Management of acute kidney injury (BONI) on chronic kidney disease stage IV in this patient with hyperkalemia. HISTORY OF PRESENT ILLNESS: History is obtained with some discussion with the healthcare providers, and with the patient and with his family member supplementing. Patient is an unreliable historian. Nilesh Goncalves is an 83-year-old male with a past medical history of dementia, hypertension, chronic obstructive pulmonary disease, dyslipidemia, history of pacemaker placement and prostate cancer with obstructive uropathy and other comorbid conditions mentioned below. The patient follows closely with Dr. Augustine for his urologic care and tells me he has had nephrostomies in the past but more recently he has had bilateral ureteral stent placement. Historic labs in the [facility] system, which are available for review, show baseline glomerular filtration rate (GFR) of 18-20 mL per minute in 2017 and 2018. The patient states he has discussed his advanced chronic kidney disease with his primary care, Dr. Guido, and has previously decided against dialysis. His renal failure secondary to obstructive uropathy has been managed by his urologist. Patient presented to the emergency room yesterday after his primary care doctor did routine labs and found creatinine was elevated at 7. In the emergency room, he was also found to be hyperkalemic. Shultz catheter was placed and urine output of about 1.5 liters promptly occurred. Patient was treated overnight with potassium lowering therapies, including bicarbonate and Veltassa and IV fluids. And when I saw him and examined this morning at the bedside, he had no complaints. PAST MEDICAL AND PAST SURGICAL HISTORY: 1. Prostate cancer with obstructive uropathy, and history of multiple urologic interventions, including nephrostomies and bilateral ureteral stents. 2. Hypertension. 3. Chronic obstructive pulmonary disease (COPD). 4. Dyslipidemia. 5. Pacemaker placement. 6. Dementia. ALLERGIES: No known drug allergies. FAMILY HISTORY: Noncontributory. SOCIAL HISTORY: He lives with his . He is an ex-smoker. There is no alcohol or drug use reported. HOME MEDICATIONS: - amlodipine - vitamin D - multivitamin - nebulizer and inhalers REVIEW OF SYSTEMS: The patient is a poor historian,. CONSTITUTIONAL: He denies fevers or chills. EYES: He denies visual changes or tearing. ENT: He denies rhinorrhea or odynophagia. CARDIAC: He denies chest pain. He reports a history of pacemaker. RESPIRATORY: He reports COPD. He denies cough. GASTROINTESTINAL: He denies nausea, vomiting, or diarrhea. GENITOURINARY: He has a history of prostate cancer. He presently has a Shultz catheter. ENDOCRINE: He denies a history of diabetes or thyroid disorder. HEMATOLOGIC: He denies easy bruising or bleeding. NEUROLOGIC: He denies seizure or syncope. PSYCHIATRIC: There is dementia. VITAL SIGNS: Temperature 97.6, pulse 75, respiratory rate 20, blood pressure 135/65, saturating 98% on room air. Intake yesterday was not fully recorded. Urine output yesterday was 1800. Urine output thus far today is 2.1 liters. GENERAL: The patient is seen in bed. His and niece are present at the bedside. Elderly male, in no acute distress, smiling. Extraocular muscles are intact. Tongue is moist. Jugular veins are not elevated. LUNGS: Show prolonged expiration. No crackle or rale. CARDIAC: S1, S2. There is no edema in the extremities. Radial pulse 2+. ABDOMEN: Soft, nontender. GENITOURINARY: Shultz catheter with yellow urine with some sediment. SKIN: Normal turgor and temperature. NEUROLOGIC: Patient is awake, alert, and cooperative with physical exam. He is oriented to person and follows commands and answers some simple questions appropriately. LABORATORY: Sodium 143, potassium 4.9, bicarbonate 22, BUN 83, creatinine 7.2, hemoglobin 10.4. Urine culture is pending. CT of the abdomen and pelvis, noncontrast, showed moderate bilateral hydronephrosis, increased from prior exam despite bilateral ureteral stents and Shultz catheter in a collapsed bladder. INPATIENT MEDICATIONS: He received one amp of sodium bicarbonate yesterday. He also received 16.8 grams of Veltassa. He is presently receiving normal saline at 125 mL per hour and ciprofloxacin 200 mg IV every 12 hours. PROBLEMS: 1. Acute kidney injury on chronic kidney disease stage IV. No labs available for my review within the past 12 months. Prior historical baseline creatinine in 2017 and 2018 was about 3.0 with a GFR of about 20 mL per minute. His acute kidney injury is related to obstructive uropathy. He has had a Shultz catheter placed and his bladder is decompressed. His obstruction may be at a higher level, including the ureters. He does have bilateral ureteral stents. I have discussed with Dr. Max and plan is for probable nephrostomy placement in coming 24 hours if there is no further improvement in his renal function. 2. Hyperkalemia. This is due to renal failure, and it was medically treated with IV fluids, bicarbonate and Veltassa. He is on a potassium-restricted diet. 3. IV fluids. Patient is being switched over to half normal saline, which is more appropriate given his obstruction and now improving urine output. We will keep a close eye on his volume status. He has no signs of hypervolemia. 4. Abnormal urinalysis in this patient with bilateral ureteral stents. Urine culture is pending. Primary team has empirically started antimicrobials. DISPOSITION: Patient's electrolytes have improved. His potassium is normalized. There is no dialysis need at present, and in fact, the patient does not wish for dialysis. His urologist is planning for nephrostomy bilaterally tomorrow if there is no further improvement in renal function.
--- NOTE | 2018-08-30 00:25 | CR ---
DATE OF CONSULTATION: 08/29/2018 UROLOGIC CONSULTATION REASON FOR CONSULTATION: Prostate cancer with bilateral ureteral obstruction, managed with bilateral ureteral stents, found to be in urinary retention. HISTORY OF PRESENT ILLNESS: The patient is an 83-year-old gentleman with a past medical history significant for advanced dementia, high blood pressure, atrial fibrillation, chronic obstructive pulmonary disease, prostate cancer with bilateral ureteral obstruction, and chronic kidney disease. Dr. Augustine last replaced his bilateral ureteral stents 07/19/2018. He was sent to the emergency room for outside findings of a creatinine of 7 when his previous creatinines ran between 2.9 and 3. In the emergency room, he was found to have 1500 mL in his bladder and a Shultz catheter was placed. A CT scan of the abdomen and pelvis was done, and this showed moderate bilateral hydroureteronephrosis, which was mildly increased from previous studies. PAST MEDICAL HISTORY: 1. Prostate cancer with chronic bilateral obstruction. 2. High blood pressure. 3. Atrial fibrillation. 4. Chronic obstructive pulmonary disease (COPD). 5. Hyperlipidemia. 6. History of a pacemaker. 7. Advanced dementia. ALLERGIES: No known drug allergies. PAST SURGICAL HISTORY: Pacemaker placement, Inguinal hernia repair. Transrectal ultrasound and prostate biopsies May of 2017; stent placements May of 2017 with stent exchanges every 6 months since then. FAMILY HISTORY: Noncontributory. SOCIAL HISTORY: He used to be a heavy smoker. He quit approximately 20 years ago. He lives at home with his . MEDICATIONS: Medications at home include amlodipine, cholecalciferol, multivitamins, and he does get Lupron injections in our office REVIEW OF SYSTEMS: Cannot be assessed PHYSICAL EXAMINATION: This is a well-developed, well-nourished gentleman lying in a hospital bed, who is not alert and oriented to person, place and time. His temperature was 97.2, blood pressure 132/76 and his pulse was 83. His head was normocephalic, atraumatic, and his trachea was midline. He has no significant supraclavicular or cervical adenopathy. His heart had a regular rate and rhythm and his lungs were clear to auscultation and percussion. He had no significant costovertebral angle (CVA) tenderness, and his abdomen was soft and nontender. His extremities showed no pedal edema, and his Shultz catheter was draining well with some debris. LABORATORY DATA: His white blood count this morning was 7.9 down from 10.3. His hemoglobin and hematocrit was 10.4 over 32.3. His platelets were 211. His BUN and creatinine were 85 over 7.28 yesterday but only came down to 83 over 7.21 today. His potassium came down from 5.9 to 4.9 today, and his chloride was high at 112. His glucose was slightly elevated at 137. CT scan of the abdomen and pelvis was done on 08/28/2018, and this showed moderate bilateral hydronephrosis, mildly increased from the prior exam despite bilateral ureteral stents in good position. A Shultz catheter was in place with a collapsed bladder. He had a left inguinal hernia containing fat and diffuse diverticulosis and cholelithiasis. DISCUSSION: I discussed these findings with the patient's and Dr. Medina today. I am going to repeat the renal ultrasound to see, since the catheter has been in for a longer period of time, whether the hydro has decreased at all. If it has not, the has consented to go ahead with bilateral nephrostomy tube placement. Dr. Medina is in agreement with this. At this point, they are denying having dialysis done, but the feels comfortable with nephrostomy tube placement. IMPRESSION: 1. Acute renal failure in a patient to have longstanding bilateral ureteral obstruction with bilateral ureteral stents, now with slightly increased bilateral hydroureteronephrosis and a Shultz catheter in place for acute urinary retention with 1500 mL found in his bladder. 2. History of prostate cancer, treated with x-ray therapy, on [facility]. 3. End-stage dementia in a patient still living at home. 4. Multiple other medical problems including but not limited to chronic kidney disease, high blood pressure, atrial fibrillation, chronic obstructive pulmonary disease (COPD), and a pacemaker in place. PLAN: 1. Obtain final urine culture and treat any urinary tract infections appropriately. 2. Repeat the renal ultrasound since the Shultz catheter has been in, but the creatinine is not decreasing to see if there is still worsening of the hydronephrosis and if so, then we will go ahead and plan bilateral percutaneous nephrostomy tube placement.
--- NOTE | 2018-08-30 01:54 | IPNPDOC ---
Text Note Date of Service The patient was seen on 08/29/18. NOTE SUBJECTIVE:Comfortable this am . No nausea or vomiting today. Was able to eat breakfast and lunch a little and kept it down. Has wilson in place making very good urine. No fever or chills, no abdominal pain , or diarrhea. PHYSICAL EXAM: VITAL SIGNS: As below GENERAL: The patient is seen in bed. His and niece are present at the bedside. Elderly male, in no acute distress, smiling. Extraocular muscles are intact. Tongue is moist. Jugular veins are not elevated. LUNGS: Show prolonged expiration with bilatreal diffuse wheezing. CARDIAC: S1, S2 regular, no murmur, rub or gallop There is no edema in the extremities. Radial pulse 2+. ABDOMEN: Soft, nontender. GENITOURINARY: Wilson catheter with yellow urine with some sediment. SKIN: Normal turgor and temperature. NEUROLOGIC: Patient is awake, alert, and cooperative with physical exam. He is oriented to person and follows commands and answers some simple questions appropriately. Labs and Radiology : Reviewed. Assessment and Plan: 83-year-old male with past medical history of advanced dementia, history of hypertension, CKD stage 4 stable for 2 years, atrial fibrillation, chronic obstructive pulmonary disease (COPD), pacemaker in place, hyperlipidemia, inguinal hernia, prostate cancer s/p radiation treatment 2 years ago now on Eligard, with chronic urinary obstruction with h/o nephrostomy tubes in the past, status post bilateral ureteral stent placements, recently replaced by Dr. Augustine on 07/19/2018, presents to the emergency room due to abnormal labs. The patient went to his primary medical doctor, who just did basic chemistries and complete blood count (CBC) and who found that his creatinine was 7 and normally his creatinine runs between 2.9 and 3, so he came to the emergency room (ER) for evaluation. In the ER, he is completely asymptomatic, not uremic. They put a Wilson in, and approximately 1500 mL of urine was expressed. Pateint was admitted for BONI on CKD, acute urinary retension and obstructive uropathy. Acute urinary retension on top of Chronic urinary retension with chronic b ilateral ureteric stents in good position acute obstruction of bladder relieved by wilson palcement with some post obs diuresis given IVF to balance output repeat renal US mild improvement of bilateral hydronephosis IF renal function and creatinine does not improve then will need bilateral nephrostomy tubes to see if there is any improvement. If no improvement after nephrostomy tubes they we have to conclude that his CKD has just progressed rapidly to this stage follow urology and nephrology reccomendations Dirty UA possible infetion urine culture pending will change cipro to ceftriaxone as last urine culture organism was resistent to fluoroquinolones. CKD stage 4 to 5 baseline creatinine around 3.0 Pateint has advanced dementia and family does not want any initiation HD for him. He remains DNR, DNI, limited medical interventions. Advanced dementia still lives at home H/o Prostate cnacer in jun 2016 with chronic chronic obstruction with bilateral ureteral stensts in place. 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 DVT prophylaxis has been ordered. VS,Fishbone, I+O VS, Fishbone, I+O Laboratory Tests 08/29/18 06:36 Red Blood Count 3.27 L, Mean Corpuscular Volume 98.8 H, Mean Corpuscular Hemoglobin 31.8, Mean Corpuscular Hemoglobin Concent 32.2, Red Cell Distribution Width 14.0, Neutrophils (%) (Auto) 93.6 H, Lymphocytes (%) (Auto) 3.0 L, Monocytes (%) (Auto) 2.7, Eosinophils (%) (Auto) 0.3, Basophils (%) (Auto) 0.1, Neutrophils # (Auto) 7.4, Lymphocytes # (Auto) 0.2 L, Monocytes # (Auto) 0.2, Eosinophils # (Auto) 0.0, Basophils # (Auto) 0.0, Calcium Level 9.2 Vital Signs Date Time Temp Pulse Resp B/P (MAP) Pulse Ox O2 Delivery O2 Flow Rate FiO2 08/29/18 06:00 97.2 83 19 132/76 (94) 98 08/28/18 18:15 Room Air I&O- Last 24 Hours up to 6 AM 08/30/18 06:00 Intake Total 1200 ml Output Total 350 ml Balance 850 ml GEETHA ORTIZ MD Aug 30, 2018 01:54
[2018-08-30] MEDS: cefTRIAXone SOD 1 GM in D5W MINI-BAG PLUS 50 ML IV SCH (02:00)
[2018-08-30 06:00] VITALS: BP 109/51
[2018-08-30 06:09] LABS: BASO % 0.5 % (0.0-1.0); EOS # 0.2 10^3/uL (0.0-0.50); EOS % 2.1 % (0.0-3.0); HEMATOCRIT 28.7 % (42.0-52.0); HEMOGLOBIN 9.2 g/dl (13.5-17.5); LYMPH # 0.6 10^3/uL (1.5-4.5); LYMPH % 7.8 % (24.0-44.0); MEAN CORPUSCULAR HEMOGLOBIN 32.2 pg (27.0-33.0); MEAN CORPUSCULAR HGB CONC 32.1 g/dl (32.0-36.5); MEAN CORPUSCULAR VOLUME 100.3 fl (80.0-96.0); MONO # 0.6 10^3/uL (0.0-0.8); MONO % 7.7 % (0.0-5.0); NEUTROPHILS # 6.2 10^3/uL (1.8-7.7); NEUTROPHILS % 81.5 % (36.0-66.0); PLATELET COUNT, AUTOMATED 167 10^3/uL (150-450); RED BLOOD COUNT 2.86 10^6/uL (4.30-6.10); WHITE BLOOD COUNT 7.6 10^3/uL (4.0-10.0)
[2018-08-30 06:33] LABS: CALCIUM LEVEL 8.2 MG/DL (8.8-10.2); CREATININE FOR GFR 6.21 MG/DL (0.70-1.30); GLOMERULAR FILTRATION RATE 9.2 (>35); POTASSIUM SERUM 4.2 MEQ/L (3.5-5.1)
[2018-08-30] MEDS: ALBUTEROL SULFATE 2.5 MG/0.5 ML INH NEB SOLN NEB SCH ×3 (07:55→23:28)
[2018-08-30 08:36] LABS: FERRITIN 145 NG/ML (26-388); IRON (FE) 64 UG/DL (65-175); PERCENT SATURATION 32.8 % (19.7-50.0); TOTAL IRON BINDING CAPACITY 195 UG/DL (250-450)
[2018-08-30] MEDS: NS 0.45% 1,000 ML IV SCH ×2 (09:43→18:21)
[2018-08-30 09:46] LABS: VITAMIN B12 LEVEL 685 PG/ML (247-911)
[2018-08-30 09:48] LABS: FOLATE > 24.0 NG/ML (>5.4)
[2018-08-30 14:00] VITALS: BP 117/63
--- NOTE | 2018-08-30 14:57 | IPNPDOC ---
Text Note Date of Service The patient was seen on 08/30/18. NOTE SUBJECTIVE:Comfortable this am . No nausea or vomiting today. Was able to eat breakfast and lunch a little and kept it down. Has wilson in place making very good urine. No fever or chills, no abdominal pain , or diarrhea. PHYSICAL EXAM: VITAL SIGNS: As below GENERAL: The patient is seen in bed. His and niece are present at the bedside. Elderly male, in no acute distress, smiling. Extraocular muscles are intact. Tongue is moist. Jugular veins are not elevated. LUNGS: Show prolonged expiration with bilatreal diffuse wheezing. CARDIAC: S1, S2 regular, no murmur, rub or gallop There is no edema in the extremities. Radial pulse 2+. ABDOMEN: Soft, nontender. GENITOURINARY: Wilson catheter with yellow urine with some sediment. SKIN: Normal turgor and temperature. NEUROLOGIC: Patient is awake, alert, and cooperative with physical exam. He is oriented to person and follows commands and answers some simple questions appropriately. Labs and Radiology : Reviewed. Assessment and Plan: 83-year-old male with past medical history of advanced dementia, history of hypertension, CKD stage 4 stable for 2 years, atrial fibrillation, chronic obstructive pulmonary disease (COPD), pacemaker in place, hyperlipidemia, inguinal hernia, prostate cancer s/p radiation treatment 2 years ago now on Eligard, with chronic urinary obstruction with h/o nephrostomy tubes in the past, status post bilateral ureteral stent placements, recently replaced by Dr. Augustine on 07/19/2018, presents to the emergency room due to abnormal labs. The patient went to his primary medical doctor, who just did basic chemistries and complete blood count (CBC) and who found that his creatinine was 7 and normally his creatinine runs between 2.9 and 3, so he came to the emergency room (ER) for evaluation. In the ER, he is completely asymptomatic, not uremic. They put a Wilson in, and approximately 1500 mL of urine was expressed. Pateint was admitted for BONI on CKD, acute urinary retention and obstructive uropathy. Acute urinary retension on top of Chronic urinary retention with chronic b ilateral ureteric stents in good position acute obstruction of bladder relieved by wilson placement with some post obs diuresis given IVF to balance output repeat renal US mild improvement of bilateral hydronephrosis Mild improvement in creatinine today. Planned for bilateral nephrostomies. If no improvement after nephrostomy tubes they we have to conclude that his CKD has just progressed rapidly to this stage follow urology and nephrology recommendations Dirty UA possible infection urine culture pending will change cipro to ceftriaxone as last urine culture organism was resistent to fluoroquinolones. CKD stage 4 to 5 baseline creatinine around 3.0 Patient has advanced dementia and family does not want any initiation HD for him. He remains DNR, DNI, limited medical interventions. Advanced dementia still lives at home H/o Prostate Cancer in jun 2016 with chronic chronic obstruction with bilateral ureteral stensts in place. 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 DVT prophylaxis has been ordered. VS,Fishbone, I+O VS, Fishbone, I+O Laboratory Tests 08/30/18 05:49 Red Blood Count 2.86 L, Mean Corpuscular Volume 100.3 H, Mean Corpuscular Hemoglobin 32.2, Mean Corpuscular Hemoglobin Concent 32.1, Red Cell Distribution Width 13.9, Neutrophils (%) (Auto) 81.5 H, Lymphocytes (%) (Auto) 7.8 L, Monocytes (%) (Auto) 7.7 H, Eosinophils (%) (Auto) 2.1, Basophils (%) (Auto) 0.5, Neutrophils # (Auto) 6.2, Lymphocytes # (Auto) 0.6 L, Monocytes # (Auto) 0.6, Eosinophils # (Auto) 0.2, Basophils # (Auto) 0.0, Calcium Level 8.2 L Vital Signs Date Time Temp Pulse Resp B/P (MAP) Pulse Ox O2 Delivery O2 Flow Rate FiO2 08/30/18 14:00 97.6 65 20 117/63 (81) 97 08/28/18 18:15 Room Air I&O- Last 24 Hours up to 6 AM 08/30/18 06:00 Intake Total 2030 ml Output Total 2750 ml Balance -720 ml GEETHA ORTIZ MD Aug 30, 2018 14:57
[2018-08-30 22:00] VITALS: BP 151/74
[2018-08-31] MEDS: cefTRIAXone SOD 1 GM in D5W MINI-BAG PLUS 50 ML IV SCH (02:02)
[2018-08-31] MEDS: NS 0.45% 1,000 ML IV SCH ×3 (02:02→15:34)
[2018-08-31 06:00] VITALS: BP 123/60
[2018-08-31 07:21] LABS: BASO % 0.5 % (0.0-1.0); EOS # 0.4 10^3/uL (0.0-0.50); EOS % 4.8 % (0.0-3.0); HEMATOCRIT 28.7 % (42.0-52.0); HEMOGLOBIN 9.2 g/dl (13.5-17.5); LYMPH # 0.5 10^3/uL (1.5-4.5); LYMPH % 6.9 % (24.0-44.0); MEAN CORPUSCULAR HEMOGLOBIN 31.5 pg (27.0-33.0); MEAN CORPUSCULAR HGB CONC 32.1 g/dl (32.0-36.5); MEAN CORPUSCULAR VOLUME 98.3 fl (80.0-96.0); MONO # 0.5 10^3/uL (0.0-0.8); MONO % 6.5 % (0.0-5.0); PLATELET COUNT, AUTOMATED 172 10^3/uL (150-450); RED BLOOD COUNT 2.92 10^6/uL (4.30-6.10); WHITE BLOOD COUNT 7.4 10^3/uL (4.0-10.0)
[2018-08-31] MEDS: ALBUTEROL SULFATE 2.5 MG/0.5 ML INH NEB SOLN NEB SCH ×3 (07:41→23:10)
[2018-08-31 07:45] LABS: CALCIUM LEVEL 8.2 MG/DL (8.8-10.2); CREATININE FOR GFR 5.47 MG/DL (0.70-1.30); GLOMERULAR FILTRATION RATE 10.6 (>35); POTASSIUM SERUM 4.2 MEQ/L (3.5-5.1)
--- NOTE | 2018-08-31 11:12 | IPN ---
DATE: 08/30/2018 SUBJECTIVE: Patient is seen and examined this morning at the bedside. Family is present. His only complaint is that he is hungry and thirsty. I discussed his recovering renal function with Dr. Max. We decided to hold off on nephrostomy placement today and monitor him further over the weekend to see if his renal function continues to improve. He has been making excellent urine. VITAL SIGNS: Temperature 97.6, pulse 65, respiratory rate 20, blood pressure 117/63, saturating 97% on room air. Intake yesterday was 1360. Urine output yesterday was 2450. Urine output thus far today is already 3-1/2 liters. Weight on the bed scale is not recorded. He is in net negative fluid balance. General: The patient is seen lying flat in bed, elderly male, in no acute distress. Extraocular muscles are intact. Tongue is moist. Neck is supple. Jugular veins are not elevated. Cardiac: S1, S2, regular rate and rhythm. Lungs are clear to auscultation bilaterally. No crackles, rales or rhonchi. Abdomen: Soft and nontender. There are bowel sounds. Genitourinary: Shows indwelling Shultz catheter with clear yellow urine. Extremities: Negative for clubbing, cyanosis, or edema. Skin: Normal turgor and temperature. LABORATORY: White count 7.6, hemoglobin 9.2, platelets 167. Sodium 146, potassium 4.2, bicarbonate 19, BUN 75, creatinine 6.2. Renal ultrasound 08/29/2018 shows some mild improvement in the moderate bilateral hydronephrosis. INPATIENT MEDICATIONS: I have increased the half normal saline to run at 150 mL an hour. Primary team has changed the antibiotic to ceftriaxone 1 gram IV daily. PROBLEMS: 1. Acute kidney injury on chronic kidney disease stage IV. Prior baseline creatinine on labs 1 year ago was 3.0 with GFR of about 20 mL per minute. His acute kidney injury is related to obstructive uropathy. He had a Shultz catheter placed with good urine output and mild improvement in the renal function and repeat renal imaging does show some mild improvement in the hydronephrosis. I have discussed the same with Dr. Max. We will hold off on nephrostomy placement today. We will continue to monitor renal function and urine output over the weekend and reassess for need of any urologic procedure again on Sunday. 2. Postobstructive diuresis. Patient is polyuric. He is receiving half normal saline. He is becoming hypernatremic. Half normal saline rate is increased to 150 mL per hour. Nursing staff is directed to place water at the bedside within easy reach. 3. Hyperkalemia. It is resolved. It is due to renal failure. It was medically treated with IV fluids, bicarbonate and Veltassa. Continue potassium-restricted diet. 4. Escherichia (E) coli urinary tract infection (UTI). Patient is on Rocephin per the primary team.
--- NOTE | 2018-08-31 12:41 | IPN ---
DATE: 08/29/2018 Mr. Goncalves is seen this morning on his bedside. He is feeling better and denies any nausea or vomiting. He does feel somewhat bloated. He has no dyspnea or chest pain. He has been receiving IV fluid at 150 mL per hour due to acute renal failure. He had obstructive uropathy and with Shultz catheter, his kidney function has started to improve. PHYSICAL EXAMINATION: Temperature 97.4 degrees Fahrenheit, heart rate 65 per minute and respiratory rate 20 per minute. Blood pressure 123/60 mmHg and oxygen saturation 98% on room air. His head is atraumatic. Neck veins are mildly distended. Heart sounds are regular and lungs with slightly diminished breath sounds bilaterally. Abdomen is soft, protuberant and nontender. Bowel sounds are present. Extremities: Have no cyanosis or clubbing. Neurologically he is grossly intact without a focal deficit. Intake and output records from yesterday are negative with total intake 2540 and output 3450 mL. Today, so far intake is 2540 and output 2300. His labs today show WBC count 7.4, hemoglobin 9.2 and hematocrit 28.7. Sodium 145, potassium 4.2, CO2 of 18, BUN 65 and creatinine 5.47. PROBLEM #1: Acute renal failure superimposed on chronic kidney disease. Kidney function is gradually improving, and we will continue to monitor closely. He had obstructive uropathy and Shultz catheter is now draining very well. The patient had been in negative fluid balance, and we will continue with IV fluid; however, I am going to cut down the rate to 75 mL per hour due to risk of hypervolemia. The patient also has adequate oral intake. PROBLEM #2: Metabolic acidosis. The patient has mild metabolic acidosis, which is essentially unchanged. I will hold off on sodium bicarbonate as his kidney function is improving and is likely to correct by itself. PROBLEM #3: Anemia. Mild anemia is stable and unchanged. No intervention is indicated at this point.
[2018-08-31 14:00] VITALS: BP 143/70
--- NOTE | 2018-08-31 14:41 | IPNPDOC ---
Text Note Date of Service The patient was seen on 08/31/18. NOTE SUBJECTIVE:Comfortable this am . No nausea or vomiting today. Was able to eat breakfast and lunch a little and kept it down. Has wilson in place making very good urine. No fever or chills, no abdominal pain , or diarrhea. PHYSICAL EXAM: VITAL SIGNS: As below GENERAL: The patient is seen in bed. His and niece are present at the bedside. Elderly male, in no acute distress, smiling. Extraocular muscles are intact. Tongue is moist. Jugular veins are not elevated. LUNGS: Show prolonged expiration with bilatreal diffuse wheezing. CARDIAC: S1, S2 regular, no murmur, rub or gallop There is no edema in the extremities. Radial pulse 2+. ABDOMEN: Soft, nontender. GENITOURINARY: Wilson catheter with yellow urine with some sediment. SKIN: Normal turgor and temperature. NEUROLOGIC: Patient is awake, alert, and cooperative with physical exam. He is oriented to person and follows commands and answers some simple questions appropriately. Labs and Radiology : Reviewed. Assessment and Plan: 83-year-old male with past medical history of advanced dementia, history of hypertension, CKD stage 4 stable for 2 years, atrial fibrillation, chronic obstructive pulmonary disease (COPD), pacemaker in place, hyperlipidemia, inguinal hernia, prostate cancer s/p radiation treatment 2 years ago now on Eligard, with chronic urinary obstruction with h/o nephrostomy tubes in the past, status post bilateral ureteral stent placements, recently replaced by Dr. Augustine on 07/19/2018, presents to the emergency room due to abnormal labs. The patient went to his primary medical doctor, who just did basic chemistries and complete blood count (CBC) and who found that his creatinine was 7 and normally his creatinine runs between 2.9 and 3, so he came to the emergency room (ER) for evaluation. In the ER, he is completely asymptomatic, not uremic. They put a Wilson in, and approximately 1500 mL of urine was expressed. Pateint was admitted for BONI on CKD, acute urinary retention and obstructive uropathy. Acute urinary retention on top of Chronic urinary retention with chronic b ilateral ureteric stents in good position acute obstruction of bladder relieved by wilson placement with some post obs diuresis given IVF to balance output repeat renal US mild improvement of bilateral hydronephrosis Further improvement in creatinine today. As there has been improvement in renal function so will not need nephrostomy tubes at present. will continue to monitor for improvement. will have to go home with wilson cath. Dirty UA possible infection urine culture pending will change cipro to ceftriaxone as last urine culture organism was resistent to fluoroquinolones. CKD stage 4 to 5 baseline creatinine around 3.0 Patient has advanced dementia and family does not want any initiation HD for him. He remains DNR, DNI, limited medical interventions. Advanced dementia still lives at home H/o Prostate Cancer in jun 2016 with chronic chronic obstruction with bilateral ureteral stensts in place. 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 DVT prophylaxis has been ordered. VS,Fishbone, I+O VS, Fishbone, I+O Laboratory Tests 08/31/18 06:26 Red Blood Count 2.92 L, Mean Corpuscular Volume 98.3 H, Mean Corpuscular Hemoglobin 31.5, Mean Corpuscular Hemoglobin Concent 32.1, Red Cell Distribution Width 14.0, Neutrophils (%) (Auto) 81.0 H, Lymphocytes (%) (Auto) 6.9 L, Monocytes (%) (Auto) 6.5 H, Eosinophils (%) (Auto) 4.8 H, Basophils (%) (Auto) 0.5, Neutrophils # (Auto) 6.0, Lymphocytes # (Auto) 0.5 L, Monocytes # (Auto) 0.5, Eosinophils # (Auto) 0.4, Basophils # (Auto) 0.0, Calcium Level 8.2 L Vital Signs Date Time Temp Pulse Resp B/P (MAP) Pulse Ox O2 Delivery O2 Flow Rate FiO2 08/31/18 14:00 97.2 65 18 143/70 (94) 97 08/28/18 18:15 Room Air I&O- Last 24 Hours up to 6 AM 08/31/18 06:00 Intake Total 3770 ml Output Total 3350 ml Balance 420 ml GEETHA ORTIZ MD Aug 31, 2018 14:41
[2018-08-31 22:00] VITALS: BP 133/72
[2018-09-01] MEDS: NS 0.45% 1,000 ML IV SCH ×3 (00:04→15:26)
[2018-09-01] MEDS: cefTRIAXone SOD 1 GM in D5W MINI-BAG PLUS 50 ML IV SCH (01:37)
[2018-09-01 06:00] VITALS: BP 111/56
[2018-09-01 06:42] LABS: BASO # 0.1 10^3/uL (0.0-0.2); BASO % 0.8 % (0.0-1.0); EOS # 0.3 10^3/uL (0.0-0.50); EOS % 4.9 % (0.0-3.0); HEMATOCRIT 28.1 % (42.0-52.0); LYMPH # 0.5 10^3/uL (1.5-4.5); LYMPH % 7.6 % (24.0-44.0); MEAN CORPUSCULAR HEMOGLOBIN 31.3 pg (27.0-33.0); MEAN CORPUSCULAR VOLUME 97.6 fl (80.0-96.0); MONO # 0.4 10^3/uL (0.0-0.8); MONO % 6.4 % (0.0-5.0); NEUTROPHILS # 5.3 10^3/uL (1.8-7.7); PLATELET COUNT, AUTOMATED 155 10^3/uL (150-450); RED BLOOD COUNT 2.88 10^6/uL (4.30-6.10); WHITE BLOOD COUNT 6.6 10^3/uL (4.0-10.0)
[2018-09-01 07:11] LABS: CREATININE FOR GFR 5.01 MG/DL (0.70-1.30); GLOMERULAR FILTRATION RATE 11.8 (>35); POTASSIUM SERUM 3.9 MEQ/L (3.5-5.1)
[2018-09-01] MEDS: ALBUTEROL SULFATE 2.5 MG/0.5 ML INH NEB SOLN NEB SCH ×2 (07:26→15:31)
--- NOTE | 2018-09-01 08:24 | IPN ---
DATE OF SERVICE: 08/30/2018 Mr. Goncalves is lying in bed and actually seems a little more with it today. He denies any significant flank pain, nausea, or vomiting. The Shultz catheter is in place and draining clear yellow urine. PHYSICAL EXAMINATION: This is a well-developed, well nourished gentleman in no apparent respiratory distress. He has been afebrile. His blood pressure is 151/74 and his pulse is 64. His intake and output are 2540 in and 3450 out. He has no CVA tenderness and his abdomen is soft and nontender. LABORATORY DATA: His white blood count is normal at 7.4. His hemoglobin and hematocrit is 9.2/28.7. His creatinine today is 5.47 down from 6.21 yesterday and his BUN is down from 75 to 65 today. His potassium is normal at 4.2. A repeat renal ultrasound done in the afternoon on 08/29/2018 did show mildly improved bilateral hydronephrosis compared to previously. IMPRESSION: 1. Acute renal failure on top of chronic kidney disease in a patient with bilateral ureteral obstruction, also found to be in acute renal failure. 2. History of prostate cancer treated with radiation therapy on [facility]. 3. End-stage dementia in a patient still living at home. 4. Multiple other medical problems including, but not limited to, chronic kidney disease, high blood pressure, atrial fibrillation, chronic obstructive pulmonary disease, and a pacemaker in place. PLAN: 1. Urine culture did come back with E. coli and he is on appropriate antibiotic management with ceftriaxone. 2. Continue Shultz catheter drainage and medical management. 3. The patient should be discharged home with the Shultz catheter followed up as an outpatient with Dr. Augustine to decide further management in the future. Please call urology if any other further input is necessary.
--- NOTE | 2018-09-01 13:28 | IPN ---
DATE OF VISIT: 09/01/2018 Mr. Goncalves is seen this morning on his bedside. He is in good mood and sitting in the chair. He denies any nausea, vomiting, dyspnea, or chest pain. He remains on intravenous (IV) fluid which he has tolerated well so far, and his Shultz catheter is draining clear urine. PHYSICAL EXAM: Temperature 98.0 degrees Fahrenheit, heart rate 69 per minute, and respiratory rate 18 per minute. Blood pressure 111/56 mmHg, and oxygen saturation 96% on room air. Intake and output records from yesterday showed total intake 3260 and output 4550 mL. His head is atraumatic. Neck is supple and without jugular venous distention (JVD) or thyroid enlargement. Heart: Sounds are regular, and lungs sound clear to auscultation. Abdomen: Soft and nontender and bowel sounds are normal. Extremities have no cyanosis or clubbing. Neurologically, he is at his baseline mentation. Today's labs show WBC count 6.6, hemoglobin 9.0, and hematocrit 28.1. Sodium 144, potassium 3.9, CO2 19, BUN 55, and creatinine 5.0. PROBLEMS: 1. Acute renal failure superimposed on chronic kidney disease. Gradual improvement in kidney function noted with ongoing IV fluid hydration and good urine output. At present, there is no indication for a nephrostomy tube and we will wait and see how he does. 2. Metabolic acidosis, mild and unchanged. He is not receiving any sodium bicarbonate as this point and we will continue to monitor without it. 3. Anemia. His anemia is stable and we will continue to follow without any need for a transfusion. His iron studies were appropriate, and he will be given one dose of Aranesp tomorrow morning, 100 mcg.
[2018-09-01 14:00] VITALS: BP 155/68
--- NOTE | 2018-09-01 14:21 | IPNPDOC ---
Text Note Date of Service The patient was seen on 09/01/18. NOTE SUBJECTIVE:Comfortable this am . No nausea or vomiting today. Was able to eat breakfast and lunch a little and kept it down. Has wilson in place making very good urine. No fever or chills, no abdominal pain , or diarrhea. creatinine slowly improving. PHYSICAL EXAM: VITAL SIGNS: As below GENERAL: The patient is seen in bed. His and niece are present at the bedside. Elderly male, in no acute distress, smiling. Extraocular muscles are intact. Tongue is moist. Jugular veins are not elevated. LUNGS: Show prolonged expiration with bilateral diffuse wheezing. CARDIAC: S1, S2 regular, no murmur, rub or gallop There is no edema in the extremities. Radial pulse 2+. ABDOMEN: Soft, nontender. GENITOURINARY: Wilson catheter with yellow urine with some sediment. SKIN: Normal turgor and temperature. NEUROLOGIC: Patient is awake, alert, and cooperative with physical exam. He is oriented to person and follows commands and answers some simple questions appropriately. Labs and Radiology : Reviewed. Assessment and Plan: 83-year-old male with past medical history of advanced dementia, history of hypertension, CKD stage 4 stable for 2 years, atrial fibrillation, chronic obstructive pulmonary disease (COPD), pacemaker in place, hyperlipidemia, inguinal hernia, prostate cancer s/p radiation treatment 2 years ago now on Eligard, with chronic urinary obstruction with h/o nephrostomy tubes in the past, status post bilateral ureteral stent placements, recently replaced by Dr. Augustine on 07/19/2018, presents to the emergency room due to abnormal labs. The patient went to his primary medical doctor, who just did basic chemistries and complete blood count (CBC) and who found that his creatinine was 7 and normally his creatinine runs between 2.9 and 3, so he came to the emergency room (ER) for evaluation. In the ER, he is completely asymptomatic, not uremic. They put a Wilson in, and approximately 1500 mL of urine was expressed. Pateint was admitted for BONI on CKD, acute urinary retention and obstructive uropathy. Acute urinary retention on top of Chronic urinary retention with chronic bilateral ureteric stents in good position acute obstruction of bladder relieved by wilson placement with some post obs diuresis given IVF to balance output repeat renal US mild improvement of bilateral hydronephrosis Further improvement in creatinine today. As there has been improvement in renal function so will not need nephrostomy tubes at present. will continue to monitor for improvement. will have to go home with wilson cath. UTI with acute urinary obstruction Due to Ecoli continue ceftriaxone. CKD stage 4 to 5 baseline creatinine around 3.0 Patient has advanced dementia and family does not want any initiation HD for him. He remains DNR, DNI, limited medical interventions. Advanced dementia still lives at home H/o Prostate Cancer in jun 2016 with chronic chronic obstruction with bilateral ureteral stensts in place. 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 DVT prophylaxis has been ordered. VS,Fishbone, I+O VS, Fishbone, I+O Laboratory Tests 09/01/18 06:29 Red Blood Count 2.88 L, Mean Corpuscular Volume 97.6 H, Mean Corpuscular Hemoglobin 31.3, Mean Corpuscular Hemoglobin Concent 32.0, Red Cell Distribution Width 13.4, Neutrophils (%) (Auto) 80.0 H, Lymphocytes (%) (Auto) 7.6 L, Monocytes (%) (Auto) 6.4 H, Eosinophils (%) (Auto) 4.9 H, Basophils (%) (Auto) 0.8, Neutrophils # (Auto) 5.3, Lymphocytes # (Auto) 0.5 L, Monocytes # (Auto) 0.4, Eosinophils # (Auto) 0.3, Basophils # (Auto) 0.1, Calcium Level 8.0 L Vital Signs Date Time Temp Pulse Resp B/P (MAP) Pulse Ox O2 Delivery O2 Flow Rate FiO2 09/01/18 14:00 97.3 67 20 155/68 (97) 95 08/28/18 18:15 Room Air I&O- Last 24 Hours up to 6 AM 09/01/18 05:59 Intake Total 2900 ml Output Total 3050 ml Balance -150 ml GEETHA ORTIZ MD Sep 01, 2018 14:21
[2018-09-01 22:00] VITALS: BP 132/70
[2018-09-02] MEDS: NS 0.45% 1,000 ML IV SCH (02:08)
[2018-09-02] MEDS: cefTRIAXone SOD 1 GM in D5W MINI-BAG PLUS 50 ML IV SCH (02:08)
[2018-09-02 06:00] VITALS: BP 123/69
[2018-09-02 07:03] LABS: BASO % 0.5 % (0.0-1.0); EOS # 0.3 10^3/uL (0.0-0.50); HEMATOCRIT 28.2 % (42.0-52.0); HEMOGLOBIN 9.3 g/dl (13.5-17.5); LYMPH # 0.5 10^3/uL (1.5-4.5); LYMPH % 8.2 % (24.0-44.0); MEAN CORPUSCULAR HEMOGLOBIN 31.8 pg (27.0-33.0); MEAN CORPUSCULAR VOLUME 96.6 fl (80.0-96.0); MONO # 0.5 10^3/uL (0.0-0.8); MONO % 7.1 % (0.0-5.0); NEUTROPHILS # 5.1 10^3/uL (1.8-7.7); NEUTROPHILS % 78.6 % (36.0-66.0); PLATELET COUNT, AUTOMATED 158 10^3/uL (150-450); RED BLOOD COUNT 2.92 10^6/uL (4.30-6.10); WHITE BLOOD COUNT 6.4 10^3/uL (4.0-10.0)
[2018-09-02 07:27] LABS: CALCIUM LEVEL 8.2 MG/DL (8.8-10.2); CREATININE FOR GFR 4.83 MG/DL (0.70-1.30); GLOMERULAR FILTRATION RATE 12.3 (>35); POTASSIUM SERUM 3.9 MEQ/L (3.5-5.1)
[2018-09-02] MEDS: ALBUTEROL SULFATE 2.5 MG/0.5 ML INH NEB SOLN NEB SCH ×3 (07:33→15:20)
[2018-09-02] MEDS ORDERED: DARBEPOETIN 100 MCG/0.5 ML *NON-DIALYSIS* SYRINGE (J0881) SC SCH (09:00)
--- NOTE | 2018-09-02 13:31 | IPNPDOC ---
Text Note Date of Service The patient was seen on 09/02/18. NOTE SUBJECTIVE:Comfortable this am . No nausea or vomiting today. Was able to eat breakfast and lunch a little and kept it down. Has wilson in place making very good urine. No fever or chills, no abdominal pain , or diarrhea. creatinine slowly improving. PHYSICAL EXAM: VITAL SIGNS: As below GENERAL: The patient is seen in bed. His and niece are present at the bedside. Elderly male, in no acute distress, smiling. Extraocular muscles are intact. Tongue is moist. Jugular veins are not elevated. LUNGS: Show prolonged expiration with bilateral diffuse wheezing. CARDIAC: S1, S2 regular, no murmur, rub or gallop There is no edema in the extremities. Radial pulse 2+. ABDOMEN: Soft, nontender. GENITOURINARY: Wilson catheter with yellow urine with some sediment. SKIN: Normal turgor and temperature. NEUROLOGIC: Patient is awake, alert, and cooperative with physical exam. He is oriented to person and follows commands and answers some simple questions appropriately. Labs and Radiology : Reviewed. Assessment and Plan: 83-year-old male with past medical history of advanced dementia, history of hypertension, CKD stage 4 stable for 2 years, atrial fibrillation, chronic obstructive pulmonary disease (COPD), pacemaker in place, hyperlipidemia, inguinal hernia, prostate cancer s/p radiation treatment 2 years ago now on Eligard, with chronic urinary obstruction with h/o nephrostomy tubes in the past, status post bilateral ureteral stent placements, recently replaced by Dr. Augustine on 07/19/2018, presents to the emergency room due to abnormal labs. The patient went to his primary medical doctor, who just did basic chemistries and complete blood count (CBC) and who found that his creatinine was 7 and normally his creatinine runs between 2.9 and 3, so he came to the emergency room (ER) for evaluation. In the ER, he is completely asymptomatic, not uremic. They put a Wilson in, and approximately 1500 mL of urine was expressed. Pateint was admitted for BONI on CKD, acute urinary retention and obstructive uropathy. Acute urinary retention on top of Chronic urinary retention with chronic bilateral ureteric stents in good position acute obstruction of bladder relieved by wilson placement with some post obs diuresis given IVF to balance output repeat renal US mild improvement of bilateral hydronephrosis Further improvement in creatinine today. As there has been improvement in renal function so will not need nephrostomy tubes at present. will continue to monitor for improvement. will have to go home with wilson cath. UTI with acute urinary obstruction Due to Ecoli continue ceftriaxone. CKD stage 4 to 5 baseline creatinine around 3.0 Patient has advanced dementia and family does not want any initiation HD for him. He remains DNR, DNI, limited medical interventions. Advanced dementia still lives at home H/o Prostate Cancer in jun 2016 with chronic chronic obstruction with bilateral ureteral stensts in place. 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 DVT prophylaxis has been ordered. VS,Fishbone, I+O VS, Fishbone, I+O Laboratory Tests 09/02/18 06:37 Red Blood Count 2.92 L, Mean Corpuscular Volume 96.6 H, Mean Corpuscular Hemoglobin 31.8, Mean Corpuscular Hemoglobin Concent 33.0, Red Cell Distribution Width 13.6, Neutrophils (%) (Auto) 78.6 H, Lymphocytes (%) (Auto) 8.2 L, Monocytes (%) (Auto) 7.1 H, Eosinophils (%) (Auto) 5.0 H, Basophils (%) (Auto) 0.5, Neutrophils # (Auto) 5.1, Lymphocytes # (Auto) 0.5 L, Monocytes # (Auto) 0.5, Eosinophils # (Auto) 0.3, Basophils # (Auto) 0.0, Calcium Level 8.2 L Vital Signs Date Time Temp Pulse Resp B/P (MAP) Pulse Ox O2 Delivery O2 Flow Rate FiO2 09/02/18 06:00 97.2 61 20 123/69 (87) 96 08/28/18 18:15 Room Air I&O- Last 24 Hours up to 6 AM 09/02/18 06:00 Intake Total 2195 ml Output Total 3725 ml Balance -1530 ml GEETHA ORTIZ MD Sep 02, 2018 13:31
[2018-09-02 14:00] VITALS: BP 122/73
[2018-09-02 22:00] VITALS: BP 124/64
[2018-09-03] MEDS: cefTRIAXone SOD 1 GM in D5W MINI-BAG PLUS 50 ML IV SCH (03:15)
[2018-09-03 06:00] VITALS: BP 125/66
[2018-09-03 06:54] LABS: BASO % 0.6 % (0.0-1.0); EOS # 0.4 10^3/uL (0.0-0.50); EOS % 5.2 % (0.0-3.0); HEMATOCRIT 30.3 % (42.0-52.0); HEMOGLOBIN 9.6 g/dl (13.5-17.5); LYMPH # 0.5 10^3/uL (1.5-4.5); MEAN CORPUSCULAR HEMOGLOBIN 31.5 pg (27.0-33.0); MEAN CORPUSCULAR HGB CONC 31.7 g/dl (32.0-36.5); MEAN CORPUSCULAR VOLUME 99.3 fl (80.0-96.0); MONO # 0.5 10^3/uL (0.0-0.8); MONO % 6.8 % (0.0-5.0); NEUTROPHILS # 5.4 10^3/uL (1.8-7.7); PLATELET COUNT, AUTOMATED 163 10^3/uL (150-450); RED BLOOD COUNT 3.05 10^6/uL (4.30-6.10); WHITE BLOOD COUNT 6.8 10^3/uL (4.0-10.0)
[2018-09-03] MEDS: ALBUTEROL SULFATE 2.5 MG/0.5 ML INH NEB SOLN NEB SCH ×3 (07:15→15:09)
[2018-09-03 07:19] LABS: CALCIUM LEVEL 8.3 MG/DL (8.8-10.2); CREATININE FOR GFR 4.57 MG/DL (0.70-1.30); GLOMERULAR FILTRATION RATE 13.1 (>35); POTASSIUM SERUM 4.2 MEQ/L (3.5-5.1)
--- NOTE | 2018-09-03 07:39 | IPNPDOC ---
Date Seen The patient was seen on 09/03/18. Progress Note SUBJECTIVE: Pt requesting to have "a cup of coffee," and has been on no dietary restrictions aside from renal diet. "I feel ok." No fever or chills, no abdominal pain , or diarrhea. creatinine slowly improving. still on IV fluids PHYSICAL EXAM: VITAL SIGNS: As below GENERAL: The patient is seen in bed. lying on his left side with wilson Extraocular muscles are intact. Tongue is moist. Jugular veins are not elevated. LUNGS:clear to auscultation bilaterally. no rales CARDIAC: S1, S2 regular, no murmur, rub or gallop There is no edema in the extremities. Radial pulse 2+. ABDOMEN: Soft, nontender. GENITOURINARY: Wilson catheter with yellow urine with some sediment. SKIN: Normal turgor and temperature. NEUROLOGIC: Patient is awake, alert, and cooperative with physical exam. He is oriented to person and follows commands and answers some simple questions appropriately. Labs and Radiology : Reviewed. Assessment and Plan: 83-year-old male with past medical history of advanced dementia, history of hypertension, CKD stage 4 stable for 2 years, atrial fibrillation, chronic obstructive pulmonary disease (COPD), pacemaker in place, hyperlipidemia, inguinal hernia, prostate cancer s/p radiation treatment 2 years ago now on Eligard, with chronic urinary obstruction with h/o nephrostomy tubes in the past, status post bilateral ureteral stent placements, recently replaced by Dr. Augustine on 07/19/2018, presents to the emergency room due to abnormal labs. The patient went to his primary medical doctor, who just did basic chemistries and complete blood count (CBC) and who found that his creatinine was 7 and normally his creatinine runs between 2.9 and 3, so he came to the emergency room (ER) for evaluation. In the ER, he is completely asymptomatic, not uremic. They put a Wilson in, and approximately 1500 mL of urine was expressed. Pateint was admitted for BONI on CKD, acute urinary retention and obstructive uropathy. Acute urinary retention on top of Chronic urinary retention with chronic bilateral ureteric stents in good position acute obstruction of bladder relieved by wilson placement with some post obs diuresis given IVF to balance output repeat renal US mild improvement of bilateral hydronephrosis Further improvement in creatinine today. As there has been improvement in renal function so will not need nephrostomy tubes at present. will continue to monitor for improvement. will have to go home with wilson cath. Anemia of Chronic Disease due to CKD, s/p aranesp no c/o sob, cp, dizziness, or lightheadedness repeat Hgb stable with no acute indication for rbc transfusion. UTI with acute urinary obstruction Due to Ecoli continue ceftriaxone. CKD stage 4 to 5 baseline creatinine around 3.0 Patient has advanced dementia and family does not want any initiation HD for him. He remains DNR, DNI, limited medical interventions. Advanced dementia still lives at home H/o Prostate Cancer in jun 2016 with chronic chronic obstruction with bilateral ureteral stensts in place. 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 DVT prophylaxis has been ordered. disposition: awaiting nephrology clearance for discharge. continue ivfluids. VS, I&O, 24H, Fishbone Vital Signs/I&O Vital Signs Date Time Temp Pulse Resp B/P (MAP) Pulse Ox O2 Delivery O2 Flow Rate FiO2 09/03/18 06:00 98.0 72 17 125/66 (85) 96 08/28/18 18:15 Room Air I&O- Last 24 Hours up to 6 AM 09/03/18 06:00 Intake Total 1200 ml Output Total 3050 ml Balance -1850 ml Laboratory Data 24H LABS Laboratory Tests 2 09/03/18 06:26: Immature Granulocyte % (Auto) 0.4, White Blood Count 6.8, Red Blood Count 3.05L, Hemoglobin 9.6L, Hematocrit 30.3L, Mean Corpuscular Volume 99.3H, Mean Corpuscular Hemoglobin 31.5, Mean Corpuscular Hemoglobin Concent 31.7L, Red Cell Distribution Width 14.0, Platelet Count 163, Neutrophils (%) (Auto) 79.0H, Lymphocytes (%) (Auto) 8.0L, Monocytes (%) (Auto) 6.8H, Eosinophils (%) (Auto) 5.2H, Basophils (%) (Auto) 0.6, Neutrophils # (Auto) 5.4, Lymphocytes # (Auto) 0.5L, Monocytes # (Auto) 0.5, Eosinophils # (Auto) 0.4, Basophils # (Auto) 0.0, Nucleated Red Blood Cells % (auto) 0.0, Anion Gap 6L, Glomerular Filtration Rate 13.1L, Blood Urea Nitrogen 45H, Creatinine 4.57H, Sodium Level 144, Potassium Level 4.2, Chloride Level 115H, Carbon Dioxide Level 23, Calcium Level 8.3L CBC/BMP Laboratory Tests 09/03/18 06:26 Red Blood Count 3.05 L, Mean Corpuscular Volume 99.3 H, Mean Corpuscular Hemoglobin 31.5, Mean Corpuscular Hemoglobin Concent 31.7 L, Red Cell Distribution Width 14.0, Neutrophils (%) (Auto) 79.0 H, Lymphocytes (%) (Auto) 8.0 L, Monocytes (%) (Auto) 6.8 H, Eosinophils (%) (Auto) 5.2 H, Basophils (%) (Auto) 0.6, Neutrophils # (Auto) 5.4, Lymphocytes # (Auto) 0.5 L, Monocytes # (Auto) 0.5, Eosinophils # (Auto) 0.4, Basophils # (Auto) 0.0, Calcium Level 8.3 L Microbiology Microbiology 08/28/18 Urine Culture - Final, Complete Escherichia Coli ALEX MONTESINOS MD Sep 03, 2018 07:39
--- NOTE | 2018-09-03 09:17 | IPN ---
DATE OF SERVICE: 09/02/2018 Mr. Goncalves is seen this morning on his bedside. He is laying in the bed without any distress. His oral intake is not great, and he reports that he does not like to drink liquids. He has no dyspnea, chest pain, nausea, or vomiting. His Shultz catheter is draining clear urine. On physical examination, temperature 97.2 degrees Fahrenheit, heart rate 60 per minute, and respiratory rate 20 per minute. Blood pressure 123/69 mmHg and oxygen saturation 96% on room air. Intake and output records from yesterday are negative only by 215. His head is atraumatic. Neck is supple and without jugular venous distention (JVD) or thyroid enlargement. Heart sounds are regular. Lungs clear to auscultation. Abdomen: Soft and nontender, and bowel sounds are normal. Extremities have no cyanosis or clubbing. Skin has no rash or ulcers. Neurologically, he is at his baseline mentation. Today's labs show WBC count 6.4, hemoglobin 9.3, and hematocrit 28.2. Sodium 142, potassium 3.9, CO2 20, BUN 52, and creatinine 4.83. Calcium is 8.2. PROBLEMS: 1. Acute renal failure superimposed on chronic kidney disease. Slight improvement in kidney function is noted. The patient has been in negative fluid balance and, unfortunately, his oral intake is not adequate. I have discussed with the patient and nursing staff about increasing oral intake of fluids. We are going to stop his intravenous (IV) fluid and see how he does over next 24 hours. If his oral intake remains adequate, then he can probably be discharged to home tomorrow. 2. Anemia. His anemia is stable, and he was given Aranesp 100 mcg dose today. No other intervention is needed at this point. 3. Urinary retention with history of prostate cancer. The patient has a Shultz catheter and should go home with the Shultz catheter.
[2018-09-03] MEDS: SODIUM BICARBONATE 75 MEQ in NS 0.45% 1,000 ML IV SCH ×2 (11:22→20:35)
[2018-09-03 14:00] VITALS: BP 121/68
--- NOTE | 2018-09-03 14:24 | IPN ---
DATE: 09/03/2018 Mr. Goncalves is seen this morning on his bedside. He is feeling well and denies any complaints. He is trying to drink more fluids. However, still could not keep up with his urine output and was a negative fluid balance yesterday. We had stopped his IV fluid hoping that he can be in even balance and can be discharged to home today. The patient denies any nausea, vomiting, dyspnea or chest pain. PHYSICAL EXAMINATION: Temperature 98.0 degrees Fahrenheit, heart rate 72 per minute and respiratory rate 17 per minute. Blood pressure 125/66 mmHg and oxygen saturation 96% on room air. Intake and output records from yesterday showed total intake 2135 and output 4500 So far total here is almost 8 liters net. PHYSICAL EXAMINATION: His neck veins are not abnormally distended. His heart sounds are regular and lungs clear to auscultation. Abdomen: Soft and nontender. Bowel sounds are normal. Extremities have no cyanosis or clubbing. Neurologically he is at his baseline mentation. Today's labs show WBC count 6.8, hemoglobin 9.6 and hematocrit 30.3. Sodium 144, potassium 4.2, CO2 23, BUN 45 and creatinine 4.57. PROBLEMS; 1. Acute renal failure superimposed on chronic kidney disease. Kidney function is improving very slowly due to significant negative fluid balance. Unfortunately he is not drinking enough by mouth. I am going to put him back on IV sodium bicarbonate drip for another 24 hours. We will need to monitor his intake and output closely. The patient is being encouraged to continue with liberal fluid oral intake. 2. Metabolic acidosis. His acidosis has corrected and we hope that it will stay stable now. We are going to put him on low dose of sodium bicarbonate drip today. 3. Anemia. His anemia has been stable and she was given a dose of Aranesp just yesterday. No other intervention is indicated. 4. Hypertension. Blood pressure is very well controlled on current antihypertensive meds and no changes are being made today.
[2018-09-03 22:00] VITALS: BP 153/72
[2018-09-04] MEDS: cefTRIAXone SOD 1 GM in D5W MINI-BAG PLUS 50 ML IV SCH (01:43)
[2018-09-04 06:00] VITALS: BP 127/60
[2018-09-04 07:12] LABS: BASO % 0.6 % (0.0-1.0); EOS # 0.4 10^3/uL (0.0-0.50); HEMATOCRIT 29.2 % (42.0-52.0); HEMOGLOBIN 9.4 g/dl (13.5-17.5); LYMPH # 0.6 10^3/uL (1.5-4.5); LYMPH % 8.4 % (24.0-44.0); MEAN CORPUSCULAR HEMOGLOBIN 31.4 pg (27.0-33.0); MEAN CORPUSCULAR HGB CONC 32.2 g/dl (32.0-36.5); MEAN CORPUSCULAR VOLUME 97.7 fl (80.0-96.0); MONO # 0.5 10^3/uL (0.0-0.8); MONO % 7.4 % (0.0-5.0); NEUTROPHILS # 5.5 10^3/uL (1.8-7.7); NEUTROPHILS % 78.2 % (36.0-66.0); PLATELET COUNT, AUTOMATED 160 10^3/uL (150-450); RED BLOOD COUNT 2.99 10^6/uL (4.30-6.10)
[2018-09-04 07:33] LABS: CALCIUM LEVEL 8.1 MG/DL (8.8-10.2); CREATININE FOR GFR 4.16 MG/DL (0.70-1.30); GLOMERULAR FILTRATION RATE 14.6 (>35); POTASSIUM SERUM 3.8 MEQ/L (3.5-5.1)
[2018-09-04] MEDS: ALBUTEROL SULFATE 2.5 MG/0.5 ML INH NEB SOLN NEB SCH ×4 (07:38→23:34)
--- NOTE | 2018-09-04 08:28 | IPNPDOC ---
Date Seen The patient was seen on 09/04/18. Progress Note SUBJECTIVE: acute metabolic acidosis improved with bicarb gtt. no c/o sob with ivfluids, but no improvement in renal fxn creat remains at 4 stage V. "I feel good today." urine output was 1.5 since midnight last night. no c/o sob, cp, pressure, tightness. still on iv bicarb gtt managed by nephrology PHYSICAL EXAM: VITAL SIGNS: As below GENERAL: The patient is seen in bed. lying on his left side with wilson Extraocular muscles are intact. Tongue is moist. Jugular veins are not elevated. LUNGS:clear to auscultation bilaterally. no rales CARDIAC: S1, S2 regular, no murmur, rub or gallop There is no edema in the extremities. Radial pulse 2+. ABDOMEN: Soft, nontender. GENITOURINARY: Wilson catheter with yellow urine with some sediment. SKIN: Normal turgor and temperature. NEUROLOGIC: Patient is awake, alert, and cooperative with physical exam. He is oriented to person and follows commands and answers some simple questions appropriately. Labs and Radiology : Reviewed. Assessment and Plan: 83-year-old male with past medical history of advanced dementia, history of hypertension, CKD stage 4 stable for 2 years, atrial fibrillation, chronic obstructive pulmonary disease (COPD), pacemaker in place, hyperlipidemia, inguinal hernia, prostate cancer s/p radiation treatment 2 years ago now on Eligard, with chronic urinary obstruction with h/o nephrostomy tubes in the past, status post bilateral ureteral stent placements, recently replaced by Dr. Augustine on 07/19/2018, presents to the emergency room due to abnormal labs. The patient went to his primary medical doctor, who just did basic chemistries and complete blood count (CBC) and who found that his creatinine was 7 and normally his creatinine runs between 2.9 and 3, so he came to the emergency room (ER) for evaluation. In the ER, he is completely asymptomatic, not uremic. They put a Wilson in, and approximately 1500 mL of urine was expressed. Pateint was admitted for BONI on CKD, acute urinary retention and obstructive uropathy. Acute urinary retention on top of Chronic urinary retention with chronic bilateral ureteric stents in good position acute obstruction of bladder relieved by wilson placement with some post obs diuresis given IVF to balance output repeat renal US mild improvement of bilateral hydronephrosis Further improvement in creatinine today. As there has been improvement in renal function so will not need nephrostomy tubes at present. will continue to monitor for improvement. will have to go home with wilson cath. Anemia of Chronic Disease due to CKD, s/p aranesp no c/o sob, cp, dizziness, or lightheadedness repeat Hgb stable with no acute indication for rbc transfusion. UTI with acute urinary obstruction Due to Ecoli continue ceftriaxone. acute metabolic acidosis,due to renal failure resolved with iv bicarb gtt check ionized calcium CKD stage 4 to 5 baseline creatinine around 3.0 Patient has advanced dementia and family does not want any initiation HD for him. He remains DNR, DNI, limited medical interventions. Advanced dementia still lives at home H/o Prostate Cancer in jun 2016 with chronic chronic obstruction with bilateral ureteral stensts in place. 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 DVT prophylaxis has been ordered. disposition: awaiting nephrology clearance for discharge. continue ivfluids. VS, I&O, 24H, Lorenzobone Vital Signs/I&O Vital Signs Date Time Temp Pulse Resp B/P (MAP) Pulse Ox O2 Delivery O2 Flow Rate FiO2 09/04/18 06:00 97.6 75 18 127/60 (82) 96 I&O- Last 24 Hours up to 6 AM 09/04/18 06:00 Intake Total 1320 ml Output Total 3225 ml Balance -1905 ml Laboratory Data 24H LABS Laboratory Tests 2 09/04/18 06:29: Immature Granulocyte % (Auto) 0.4, White Blood Count 7.0, Red Blood Count 2.99L, Hemoglobin 9.4L, Hematocrit 29.2L, Mean Corpuscular Volume 97.7H, Mean Corpuscular Hemoglobin 31.4, Mean Corpuscular Hemoglobin Concent 32.2, Red Cell Distribution Width 14.0, Platelet Count 160, Neutrophils (%) (Auto) 78.2H, Lymphocytes (%) (Auto) 8.4L, Monocytes (%) (Auto) 7.4H, Eosinophils (%) (Auto) 5.0H, Basophils (%) (Auto) 0.6, Neutrophils # (Auto) 5.5, Lymphocytes # (Auto) 0.6L, Monocytes # (Auto) 0.5, Eosinophils # (Auto) 0.4, Basophils # (Auto) 0.0, Nucleated Red Blood Cells % (auto) 0.0 CBC/BMP Laboratory Tests 09/04/18 06:29 Red Blood Count 2.99 L, Mean Corpuscular Volume 97.7 H, Mean Corpuscular Hemoglobin 31.4, Mean Corpuscular Hemoglobin Concent 32.2, Red Cell Distribution Width 14.0, Neutrophils (%) (Auto) 78.2 H, Lymphocytes (%) (Auto) 8.4 L, Monocytes (%) (Auto) 7.4 H, Eosinophils (%) (Auto) 5.0 H, Basophils (%) (Auto) 0.6, Neutrophils # (Auto) 5.5, Lymphocytes # (Auto) 0.6 L, Monocytes # (Auto) 0.5, Eosinophils # (Auto) 0.4, Basophils # (Auto) 0.0 Microbiology Microbiology 08/28/18 Urine Culture - Final, Complete Escherichia Coli ALEX MONTESINOS MD Sep 04, 2018 07:16
[2018-09-04] MEDS: SODIUM BICARBONATE 75 MEQ in NS 0.45% 1,000 ML IV SCH ×2 (09:06→20:50)
--- NOTE | 2018-09-04 11:41 | IPN ---
DATE: 09/04/2018 Mr. Goncalves is seen this morning on his bedside. He is laying in the bed and denies any complaints. He has no dyspnea, chest pain, nausea or vomiting. His oral intake still remains poor and he is receiving IV fluid. PHYSICAL EXAMINATION: Temperature 96.7 degrees Fahrenheit, heart rate 75 per minute and respiratory rate 18 per minute. Blood pressure 127/60 mmHg and oxygen saturation 96% on room air. Intake and output records from yesterday show a total intake 1320 and output 2500 mL. He has been in negative fluid balance everyday for the last several days. His head is atraumatic. Neck is supple and jugular venous distention (JVD) is not elevated. Heart sounds are regular. Lungs are clear to auscultation. Abdomen is soft and nontender and bowel sounds are present. Extremities have no cyanosis or clubbing. Skin has no rash or ulcers. Neurologically, he has no focal deficit and is at his baseline mentation. LABORATORY DATA: Today's laboratories show WBC count 7.0, hemoglobin 9.4 and hematocrit 29.2. Sodium 145, potassium 3.8, CO2 26, BUN 43 and creatinine 4.16. PROBLEMS: 1. Acute renal failure superimposed on chronic kidney disease. Gradual improvement in kidney function is noted. He falls behind in fluid intake due to decreased oral intake. The patient is being encouraged and nursing staff is being advised to push for oral fluids. We will continue IV fluid for one more day and consider to stop it tomorrow if he maintains his intake equal output. 2. Urinary retention. The patient will maintain Shultz catheter and he is likely to go home with it. He has history of prostate cancer and is not really a surgical candidate. I do not feel that a nephrostomy tube is indicated at this point. 3. Anemia. No significant change and anemia is stable and we will continue with Aranesp once a week for now.
[2018-09-04 14:00] VITALS: BP 165/76
[2018-09-04 22:00] VITALS: BP 128/60
[2018-09-05] MEDS: cefTRIAXone SOD 1 GM in D5W MINI-BAG PLUS 50 ML IV SCH (01:48)
[2018-09-05 06:00] VITALS: BP 133/63
[2018-09-05 06:57] LABS: BASO # 0.1 10^3/uL (0.0-0.2); BASO % 0.7 % (0.0-1.0); EOS # 0.3 10^3/uL (0.0-0.50); EOS % 4.4 % (0.0-3.0); HEMATOCRIT 29.2 % (42.0-52.0); HEMOGLOBIN 9.6 g/dl (13.5-17.5); LYMPH # 0.6 10^3/uL (1.5-4.5); LYMPH % 8.6 % (24.0-44.0); MEAN CORPUSCULAR HEMOGLOBIN 32.3 pg (27.0-33.0); MEAN CORPUSCULAR HGB CONC 32.9 g/dl (32.0-36.5); MEAN CORPUSCULAR VOLUME 98.3 fl (80.0-96.0); MONO # 0.5 10^3/uL (0.0-0.8); MONO % 6.6 % (0.0-5.0); NEUTROPHILS # 5.7 10^3/uL (1.8-7.7); NEUTROPHILS % 79.1 % (36.0-66.0); PLATELET COUNT, AUTOMATED 156 10^3/uL (150-450); RED BLOOD COUNT 2.97 10^6/uL (4.30-6.10); WHITE BLOOD COUNT 7.2 10^3/uL (4.0-10.0)
[2018-09-05] MEDS: SODIUM BICARBONATE 75 MEQ in NS 0.45% 1,000 ML IV SCH (07:24)
[2018-09-05 07:27] LABS: CALCIUM LEVEL 8.1 MG/DL (8.8-10.2); CREATININE FOR GFR 3.73 MG/DL (0.70-1.30); GLOMERULAR FILTRATION RATE 16.5 (>35); POTASSIUM SERUM 3.7 MEQ/L (3.5-5.1)
--- NOTE | 2018-09-05 08:14 | IPNPDOC ---
Date Seen The patient was seen on 09/05/18. Progress Note SUBJECTIVE: Pt was seen and examined today at the bedside. Chart has been reviewed. Pt has not passed HSE, and not safe for discharge home. acute metabolic acidosis improved with bicarb gtt. no c/o sob with ivfluids, but no improvement in renal fxn creat remains at 4 stage V. no c/o sob, cp, pressure, tightness. still on iv bicarb gtt managed by nephrology PHYSICAL EXAM: VITAL SIGNS: As below GENERAL: The patient is seen in bed. lying on his left side with wilson Extraocular muscles are intact. Tongue is moist. Jugular veins are not elevated. LUNGS:clear to auscultation bilaterally. no rales CARDIAC: S1, S2 regular, no murmur, rub or gallop There is no edema in the extremities. Radial pulse 2+. ABDOMEN: Soft, nontender. GENITOURINARY: Wilson catheter with yellow urine with some sediment. SKIN: Normal turgor and temperature. NEUROLOGIC: Patient is awake, alert, and cooperative with physical exam. He is oriented to person and follows commands and answers some simple questions appropriately. Labs and Radiology : Reviewed. Assessment and Plan: 83-year-old male with past medical history of advanced dementia, history of hypertension, CKD stage 4 stable for 2 years, atrial fibrillation, chronic obstructive pulmonary disease (COPD), pacemaker in place, hyperlipidemia, inguinal hernia, prostate cancer s/p radiation treatment 2 years ago now on Eligard, with chronic urinary obstruction with h/o nephrostomy tubes in the past, status post bilateral ureteral stent placements, recently replaced by Dr. Augustine on 07/19/2018, presents to the emergency room due to abnormal labs. The patient went to his primary medical doctor, who just did basic chemistries and complete blood count (CBC) and who found that his creatinine was 7 and normally his creatinine runs between 2.9 and 3, so he came to the emergency room (ER) for evaluation. In the ER, he is completely asymptomatic, not uremic. They put a Wilson in, and approximately 1500 mL of urine was expressed. Pateint was admitted for BONI on CKD, acute urinary retention and obstructive uropathy. Acute urinary retention on top of Chronic urinary retention with chronic bilateral ureteric stents in good position acute obstruction of bladder relieved by wilson placement with some post obs diuresis given IVF to balance output repeat renal US mild improvement of bilateral hydronephrosis Further improvement in creatinine today. As there has been improvement in renal function so will not need nephrostomy tubes at present. will continue to monitor for improvement. will have to go home with wilson cath. Anemia of Chronic Disease due to CKD, s/p aranesp no c/o sob, cp, dizziness, or lightheadedness repeat Hgb stable with no acute indication for rbc transfusion. UTI with acute urinary obstruction Due to Ecoli continue ceftriaxone. acute metabolic acidosis,due to renal failure resolved with iv bicarb gtt check ionized calcium CKD stage 4 to 5 baseline creatinine around 3.0 Patient has advanced dementia and family does not want any initiation HD for him. He remains DNR, DNI, limited medical interventions. Advanced dementia still lives at home H/o Prostate Cancer in jun 2016 with chronic chronic obstruction with bilateral ureteral stensts in place. 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 DVT prophylaxis has been ordered. disposition: awaiting nephrology clearance for discharge. continue ivfluids. VS, I&O, 24H, Fishbone Vital Signs/I&O Vital Signs Date Time Temp Pulse Resp B/P (MAP) Pulse Ox O2 Delivery O2 Flow Rate FiO2 09/05/18 06:00 98.8 65 18 133/63 (86) 93 I&O- Last 24 Hours up to 6 AM 09/05/18 05:59 Intake Total 4580 ml Output Total 4700 ml Balance -120 ml Laboratory Data 24H LABS Laboratory Tests 2 09/05/18 06:27: Immature Granulocyte % (Auto) 0.6, White Blood Count 7.2, Red Blood Count 2.97L, Hemoglobin 9.6L, Hematocrit 29.2L, Mean Corpuscular Volume 98.3H, Mean Corpuscular Hemoglobin 32.3, Mean Corpuscular Hemoglobin Concent 32.9, Red Cell Distribution Width 14.1, Platelet Count 156, Neutrophils (%) (Auto) 79.1H, Lymphocytes (%) (Auto) 8.6L, Monocytes (%) (Auto) 6.6H, Eosinophils (%) (Auto) 4.4H, Basophils (%) (Auto) 0.7, Neutrophils # (Auto) 5.7, Lymphocytes # (Auto) 0.6L, Monocytes # (Auto) 0.5, Eosinophils # (Auto) 0.3, Basophils # (Auto) 0.1, Nucleated Red Blood Cells % (auto) 0.0, Anion Gap 5L, Glomerular Filtration Rate 16.5L, Blood Urea Nitrogen 36H, Creatinine 3.73H, Sodium Level 143, Potassium Level 3.7, Chloride Level 108H, Carbon Dioxide Level 30, Calcium Level 8.1L CBC/BMP Laboratory Tests 09/05/18 06:27 Red Blood Count 2.97 L, Mean Corpuscular Volume 98.3 H, Mean Corpuscular Hemoglobin 32.3, Mean Corpuscular Hemoglobin Concent 32.9, Red Cell Distribution Width 14.1, Neutrophils (%) (Auto) 79.1 H, Lymphocytes (%) (Auto) 8.6 L, M onocytes (%) (Auto) 6.6 H, Eosinophils (%) (Auto) 4.4 H, Basophils (%) (Auto) 0.7, Neutrophils # (Auto) 5.7, Lymphocytes # (Auto) 0.6 L, Monocytes # (Auto) 0.5, Eosinophils # (Auto) 0.3, Basophils # (Auto) 0.1, Calcium Level 8.1 L Microbiology Microbiology 08/28/18 Urine Culture - Final, Complete Escherichia Coli ALEX MONTESINOS MD Sep 05, 2018 08:13
[2018-09-05] MEDS: ALBUTEROL SULFATE 2.5 MG/0.5 ML INH NEB SOLN NEB SCH ×2 (08:43→16:00)
[2018-09-05 09:00] VITALS: BP 116/58
--- NOTE | 2018-09-05 11:58 | IPN ---
DATE OF VISIT: 09/05/2018 Mr. Goncalves is seen this morning on his bedside. He is sitting in the chair this morning and feels well. He remains on IV fluid, however, yesterday he do a good job on oral intake. The patient denies any dyspnea, chest pain, nausea or vomiting. PHYSICAL EXAMINATION: Temperature 97.9 degrees Fahrenheit, heart rate 72 per minute and respiratory rate 16 per minute. Blood pressure 116/58 mmHg and oxygen saturation 94% on room air. Intake and output records from yesterday showed total intake 4.5 liters and output 5.4 liters. He was still slightly negative in fluid balance despite IV fluid and oral intake. His heart sounds are regular and lungs with no rales or wheezing. Abdomen is soft and nontender. Bowel sounds are normal. Extremities have no cyanosis or clubbing. Neurologically, he is at his baseline mentation. Today's labs show WBC count 7.2, hemoglobin 9.6 and hematocrit 29.2. Platelets 156. Sodium 143, potassium 3.7, CO2 of 30, BUN 36 and creatinine 3.73. Calcium level is 8.1. PROBLEMS: 1. Acute renal failure superimposed on chronic kidney disease. Kidney function is slowly improving. He has been in negative fluid balance due to which the improvement has been quite slow. He is currently receiving IV fluid, which I am going to stop in the afternoon. The patient is being encouraged to continue with liberal fluid intake. 2. Urinary retention. The patient has history of prostate cancer and had significant urinary retention. He should remain with Shultz catheter for rest of his life. 3. Anemia. His anemia is stable at this point and he did receive Aranesp one dose earlier this week. DISPOSITION: From a renal standpoint, the patient can be discharged to home later today.
[2018-09-05 14:10] VITALS: BP 131/60
[2018-09-05 22:00] VITALS: BP 149/73
[2018-09-06] MEDS: ALBUTEROL SULFATE 2.5 MG/0.5 ML INH NEB SOLN NEB SCH ×2 (00:09→08:29)
[2018-09-06] MEDS: cefTRIAXone SOD 1 GM in D5W MINI-BAG PLUS 50 ML IV SCH (01:49)
[2018-09-06 06:00] VITALS: BP 130/77
[2018-09-06 06:44] LABS: BASO # 0.1 10^3/uL (0.0-0.2); EOS # 0.3 10^3/uL (0.0-0.50); HEMATOCRIT 31.8 % (42.0-52.0); HEMOGLOBIN 10.2 g/dl (13.5-17.5); LYMPH # 0.7 10^3/uL (1.5-4.5); LYMPH % 10.4 % (24.0-44.0); MEAN CORPUSCULAR HEMOGLOBIN 31.5 pg (27.0-33.0); MEAN CORPUSCULAR HGB CONC 32.1 g/dl (32.0-36.5); MEAN CORPUSCULAR VOLUME 98.1 fl (80.0-96.0); MONO # 0.5 10^3/uL (0.0-0.8); NEUTROPHILS # 5.4 10^3/uL (1.8-7.7); PLATELET COUNT, AUTOMATED 161 10^3/uL (150-450); RED BLOOD COUNT 3.24 10^6/uL (4.30-6.10)
[2018-09-06 07:16] LABS: CALCIUM LEVEL 8.7 MG/DL (8.8-10.2); CREATININE FOR GFR 3.71 MG/DL (0.70-1.30); GLOMERULAR FILTRATION RATE 16.7 (>35); POTASSIUM SERUM 4.1 MEQ/L (3.5-5.1)
[2018-09-06 08:09] VITALS: BP 137/65
[2018-09-06 08:21] VITALS: BP 137/65
[2018-09-06] MEDS ORDERED: amLODIPine 5 MG TAB PO SCH (09:00)
--- NOTE | 2018-09-06 12:49 | DS.PDOC ---
Discharge Summary General Date of Admission Aug 28, 2018 at 17:01 Date of Discharge September 06, 2018 Discharge Summary DISCHARGE DIAGNOSES: Acute urinary retention on Chronic urinary retention with chronic bilateral ureteric stents, relieved by wilson placement Anemia of Chronic Disease due to CKD, s/p aranesp E. COLI UTI with acute urinary obstruction acute metabolic acidosis,due to renal failure CKD stage 4 to 5baseline creatinine around 3.0 Advanced dementia H/o Prostate Cancer in jun 2016 with chronic chronic obstruction with bilateral ureteral stensts in place. 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 HERNANDEZ NEPHROLOGY: DR. JIMENEZ HISTORY OF PRESENTING ILLNESS; 83-year-old male with past medical history of advanced dementia, history of hypertension, CKD stage 4 stable for 2 years, atrial fibrillation, chronic obstructive pulmonary disease (COPD), pacemaker in place, hyperlipidemia, inguinal hernia, prostate cancer s/p radiation treatment 2 years ago now on Eligard, with chronic urinary obstruction with h/o nephrostomy tubes in the past, status post bilateral ureteral stent placements, recently replaced by Dr. Augustine on 07/19/2018, presents to the emergency room due to abnormal labs. The patient went to his primary medical doctor, who just did basic chemistries and complete blood count (CBC) and who found that his creatinine was 7 and normally his creatinine runs between 2.9 and 3, so he came to the emergency room (ER) for evaluation. In the ER, he is completely asymptomatic, not uremic. They put a Wilson in, and approximately 1500 mL of urine was expressed. Pateint was admitted for BONI on CKD, acute urinary retention and obstructive uropathy. HOSPITAL COURSE: Acute urinary retention on top of Chronic urinary retention with chronic bilateral ureteric stents in good position acute obstruction of bladder relieved by wilson placement with some post obs diuresis given IVF to balance output repeat renal US mild improvement of bilateral hydronephrosis Further improvement in creatinine today. As there has been improvement in renal function so will not need nephrostomy tubes at present. will continue to monitor for improvement. will have to go home with wilson cath. Anemia of Chronic Disease due to CKD, s/p aranesp no c/o sob, cp, dizziness, or lightheadedness repeat Hgb stable with no acute indication for rbc transfusion. UTI with acute urinary obstruction Due to Ecoli continue ceftriaxone. acute metabolic acidosis,due to renal failure resolved with iv bicarb gtt check ionized calcium no c/o sob, cp, pressure, tightness. still on iv bicarb gtt managed by nephrology CKD stage 4 to 5 baseline creatinine around 3.0 Patient has advanced dementia and family does not want any initiation HD for him. He remains DNR, DNI, limited medical interventions. Advanced dementia still lives at home H/o Prostate Cancer in jun 2016 with chronic chronic obstruction with bilateral ureteral stensts in place. 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 DVT prophylaxis has been ordered. DISCHARGE PHYSICAL EXAM: VITAL SIGNS: As below GENERAL: The patient is seen in bed. lying on his left side with wilson Extraocular muscles are intact. Tongue is moist. Jugular veins are not elevated. LUNGS:clear to auscultation bilaterally. no rales CARDIAC: S1, S2 regular, no murmur, rub or gallop There is no edema in the extremities. Radial pulse 2+. ABDOMEN: Soft, nontender. GENITOURINARY: Wilson catheter with yellow urine with some sediment. SKIN: Normal turgor and temperature. NEUROLOGIC: Patient is awake, alert, and cooperative with physical exam. He is oriented to person and follows commands and answers some simple questions appropriately. LABORATORY DATA,IMAGING STUDIES, MICROBIOLOGY: PLS SEE BELOW TIME SPENT ON DISCHARGE: 30 MIN Vital Signs/I&Os Vital Signs Date Time Temp Pulse Resp B/P (MAP) Pulse Ox O2 Delivery O2 Flow Rate FiO2 09/06/18 08:21 97.5 76 18 137/65 (89) 95 I&O- Last 24 Hours up to 6 AM 09/06/18 06:00 Intake Total 3260 ml Output Total 3375 ml Balance -115 ml Laboratory Data Labs 24H Laboratory Tests 2 09/06/18 06:16: Immature Granulocyte % (Auto) 0.6, White Blood Count 7.0, Red Blood Count 3.24L, Hemoglobin 10.2L, Hematocrit 31.8L, Mean Corpuscular Volume 98.1H, Mean Corpuscular Hemoglobin 31.5, Mean Corpuscular Hemoglobin Concent 32.1, Red Cell Distribution Width 14.2, Platelet Count 161, Neutrophils (%) (Auto) 77.0H, Lymphocytes (%) (Auto) 10.4L, Monocytes (%) (Auto) 7.0H, Eosinophils (%) (Auto) 4.0H, Basophils (%) (Auto) 1.0, Neutrophils # (Auto) 5.4, Lymphocytes # (Auto) 0.7L, Monocytes # (Auto) 0.5, Eosinophils # (Auto) 0.3, Basophils # (Auto) 0.1, Nucleated Red Blood Cells % (auto) 0.0, Anion Gap 6L, Glomerular Filtration Rate 16.7L, Blood Urea Nitrogen 35H, Creatinine 3.71H, Sodium Level 143, Potassium Level 4.1, Chloride Level 108H, Carbon Dioxide Level 29, Calcium Level 8.7L CBC/BMP Laboratory Tests 09/06/18 06:16 Red Blood Count 3.24 L, Mean Corpuscular Volume 98.1 H, Mean Corpuscular He moglobin 31.5, Mean Corpuscular Hemoglobin Concent 32.1, Red Cell Distribution Width 14.2, Neutrophils (%) (Auto) 77.0 H, Lymphocytes (%) (Auto) 10.4 L, Monocytes (%) (Auto) 7.0 H, Eosinophils (%) (Auto) 4.0 H, Basophils (%) (Auto) 1.0, Neutrophils # (Auto) 5.4, Lymphocytes # (Auto) 0.7 L, Monocytes # (Auto) 0.5, Eosinophils # (Auto) 0.3, Basophils # (Auto) 0.1, Calcium Level 8.7 L Microbiology Microbiology 08/28/18 Urine Culture - Final, Complete Escherichia Coli Discharge Medications Scheduled Amlodipine Besylate (Amlodipine Besylate) 5 Mg Tab, 5 MG PO DAILY, (Reported) Cholecalciferol (Vitamin D3) 2,000 Unit Tab, 2,000 UNIT PO DAILY, (Reported) Multivitamins *[facility] STOCKED* (Thera M Plus *[facility] STOCKED*) 1 Tab Tab, 1 TAB PO DAILY, (Reported) Allergies Coded Allergies: No Known Allergies (Unverified , 07/04/18) ALEX MONTESINOS MD Sep 06, 2018 12:49
== END 2018-09-06 12:06 | disposition home health service (06) | DRG 683 ==
LOC: M ED 13:06 → M ED INP 17:01 → M MS5PR 18:20
PROVIDERS: ADMIT Internal Medicine; ATTEND General Practice
DX: N17.9 Acute kidney failure, unspecified (principal); N39.0 Urinary tract infection, site not specified; E87.2 Acidosis; N18.4 Chronic kidney disease, stage 4 (severe); N13.9 Obstructive and reflux uropathy, unspecified; R33.9 Retention of urine, unspecified; B96.29 Other Escherichia coli [E. coli] as the cause of diseases classified elsewhere; F03.90 Unspecified dementia, unspecified severity, without behavioral disturbance, psychotic disturbance, mood disturbance, and anxiety; J44.9 Chronic obstructive pulmonary disease, unspecified; D63.1 Anemia in chronic kidney disease; I12.9 Hypertensive chronic kidney disease with stage 1 through stage 4 chronic kidney disease, or unspecified chronic kidney disease; I48.91 Unspecified atrial fibrillation; Z95.0 Presence of cardiac pacemaker; I49.5 Sick sinus syndrome; Z66 Do not resuscitate; Z79.899 Other long term (current) drug therapy; Z85.46 Personal history of malignant neoplasm of prostate; E87.5 Hyperkalemia

== ENCOUNTER → 2018-09-13 | Outpatient (REF) | payer MEDICARE, OTHER ==
[2018-09-13 18:46] LABS: PERCENT SATURATION 24.5 % (19.7-50.0)
== END ==
LOC: M LAB REF 17:18
PROVIDERS: ATTEND Internal Medicine Nephrology
DX: N18.9 Chronic kidney disease, unspecified (principal); D63.1 Anemia in chronic kidney disease

== ENCOUNTER → 2018-09-24 | Outpatient (REF) | payer MEDICARE, OTHER ==
[~2018-09-24] MED LIST changes: +CALC500C16 PO; +D 1010004 PO; +OXYB5TAB10 PO; +ROCA0.25 PO; +eligard SC
[2018-09-24 20:03] LABS: APPEARANCE, URINE TURBID (CLEAR); BACTERIA, URINE AUTO 3+ (NEGATIVE); BILIRUBIN, URINE AUTO NEGATIVE (NEGATIVE); BLOOD, URINE BLOOD 3+ (NEGATIVE); COLOR, URINE AMBER (YELLOW); GLUCOSE, URINE (UA) AUTO NEGATIVE (NEGATIVE); KETONE, URINE AUTO NEGATIVE (NEGATIVE); LEUKOCYTE ESTERASE, URINE AUTO 3+ (NEGATIVE); NITRITE, URINE AUTO NEGATIVE (NEGATIVE); PROTEIN, URINE AUTO 2+ mg/dL (NEGATIVE); RBC, URINE AUTO TNTC /HPF (0-3); SPECIFIC GRAVITY URINE AUTO 1.012 (1.002-1.035); SQUAMOUS EPITHELIAL CELL UR AU 0 /HPF (0-6); UROBILINOGEN, URINE AUTO 0.2 mg/dL (0.0-2.0); WBC, URINE AUTO TNTC /HPF (0-3)
== END ==
LOC: M SMT 18:51
PROVIDERS: ATTEND Nurse Practitioner Women's Health
DX: R33.9 Retention of urine, unspecified (principal)

== ENCOUNTER → 2018-10-03 | Outpatient (CLI) | payer MEDICARE, BC, OTHER ==
--- NOTE | 2018-10-03 17:10 | REP ---
RENAL ULTRASOUND: Real-time sonographic evaluation of the kidneys performed. The kidneys are normal in size and echotexture, right kidney measuring 9.3 x 4.2 x 5.1 cm and left kidney 9.5 x 3.9 x 3.8 cm. There is no hydronephrosis or nephrolithiasis. A 1.1 cm cyst is seen in the left lower pole. There are bilateral stents seen in the renal pelvis. IMPRESSION: No hydronephrosis. Bilateral ureteral stents visualized. Electronically Signed by Efra Enrique MD 10/04/2018 12:53 P
== END ==
LOC: M RAD 15:44
PROVIDERS: ATTEND Internal Medicine Nephrology
DX: N28.1 Cyst of kidney, acquired (principal)

== ENCOUNTER 2018-10-09 10:10 | Day surgery (SDC) | payer MEDICARE, BC, OTHER ==
[~2018-10-09] VITALS: Ht 167.6 cm; Wt 76.2 kg
[~2018-10-09 10:10] MED LIST changes: +LR 1,000 ML IV SCH
[2018-10-09] MEDS ORDERED: CONRAY-60 60% 50ML VIAL (Q9961) As Ordered ONE (12:51)
[2018-10-09] MEDS ORDERED: LIDOCAINE 2% 5ML JELLY UROJET As Ordered ONE (12:51)
[2018-10-09] MEDS ORDERED: LIDOCAINE 2% INJ 100 MG/5 ML SDV (FOR ANES.) As Ordered ONE (13:20)
[2018-10-09] MEDS ORDERED: fentaNYL 100 MCG/2 ML INJECTION (J3010) As Ordered ONE (13:20)
[2018-10-09] MEDS ORDERED: ONDANSETRON 4MG/2ML VIAL (J2405) As Ordered ONE (13:20)
[2018-10-09] MEDS ORDERED: PHENYLephrine HCL 500 MCG/5 ML (100MCG/ML) SYRINGE (J2370) As Ordered ONE ×3 (13:20→14:06)
[2018-10-09] MEDS ORDERED: PROPOFOL 200 MG/20 ML VIAL As Ordered ONE ×2 (13:20→13:35)
--- NOTE | 2018-10-09 14:48 | REP ---
REASON: Double pigtail catheter stent placement. Five fluoroscopic spot views of the abdomen and pelvis were obtained in my absentia. 29 seconds of fluoroscopy time was provided to Dr. Blake Augustine for the procedure. Double J pigtail catheters are seen bilaterally. There is a small amount of radiographic contrast material seen opacifying each renal collecting system. Electronically Signed by Donavan Zhao DO 10/09/2018 03:27 P
[2018-10-09 15:19] VITALS: BP 145/68
--- NOTE | 2018-10-10 07:59 | RO ---
DATE OF PROCEDURE: 10/09/2018 PREPROCEDURE DIAGNOSIS: Bilateral hydronephrosis. POSTPROCEDURE DIAGNOSIS: Bilateral hydronephrosis. PROCEDURE: Cystoscopy, bilateral ureteral stent exchange, bilateral retrograde pyelogram with intraoperative interpretation of images. SURGEON: Blake Augustine MD MANUFACTURING PRODUCTION TECHNICIAN: None. ANESTHESIA: MAC. OPERATIVE INDICATIONS: This is an 83-year-old male with bilateral hydronephrosis managed with chronic ureteral stenting. He is here today for a routine stent exchanged. DESCRIPTION OF PROCEDURE: Patient was brought to the operating room and MAC was administered. Prophylactic antibiotics were infused. He was then placed in dorsal lithotomy position, prepped and draped in the usual sterile fashion. A rigid cystoscope was inserted through the meatus and advanced into the bladder. The previously placed stents were seen. A guidewire was advanced up the left collecting system and then the left ureteral stent was removed. I then advanced an open ended ureteral catheter up the left collecting system and removed the wire. A retrograde pyelogram was performed notable for moderate left hydronephrosis and extravasation. We then advanced the wire back up and removed the open ended ureteral catheter. The wire was then utilized to advance the 7-Prydeinig x 22-32 JJ ureteral stent up to the left collecting system,. The wire was removed and there are adequate curls of the stent in the left renal pelvis and in the bladder. We then went back in with the scope and advanced the wire to the right collecting system. The right ureteral stent was then removed. The wire was then utilized to advance an open ended ureteral catheter up into the right collecting system. The wire was removed and a retrograde pyelogram was performed notable for moderate right hydronephrosis and no extravasation. The wire ws then placed back up in to the right collecting system and an open ended ureteral catheter ws removed. The wire was then utilized again to a 7-Prydeinig x 22-32 cm JJ ureteral stent up the right collecting system. The wire was removed and their are adequate curls of the stent in the right renal pelvis and in the bladder. At this point the cystoscope was removed and an 18-Prydeinig Shultz catheter was returned to the bladder. The catheter was connected to gravity drainage and the balloon was filled with 10 mL of sterile water. This marked the conclusion of the procedure. The patient was then taken out of dorsal lithotomy position, awakened from anesthesia, and transported to the recovery room in stable condition. ESTIMATED BLOOD LOSS: 5 mL. COMPLICATIONS: None. SPECIMENS: None. PLAN: The patient will followup in the urology clinic monthly for catheter changes. He will need to be set up for routine stent exchange in 3 months.
== END 2018-10-09 15:19 | disposition home or self-care (01) ==
LOC: M SDC 10:10
PROVIDERS: ATTEND Urology
DX: N13.30 Unspecified hydronephrosis (principal); I48.91 Unspecified atrial fibrillation; I10 Essential (primary) hypertension; J44.9 Chronic obstructive pulmonary disease, unspecified; Z95.0 Presence of cardiac pacemaker; Z79.899 Other long term (current) drug therapy; Z85.46 Personal history of malignant neoplasm of prostate; Z92.3 Personal history of irradiation
CPT/HCPCS: 52332; 74420; C1769; C2617; J0690; J2370; J2405; J3010; Q9961

== ENCOUNTER → 2018-12-18 | Outpatient (CLI) | payer MEDICARE, BC, OTHER ==
[~2018-12-18] MED LIST changes: -LR 1,000 ML IV SCH
--- NOTE | 2018-12-20 11:26 | RADONC ---
RADIATION ONCOLOGY FOLLOWUP NOTE DATE OF SERVICE: 12/18/2018 CHART NUMBER: [id number] DIAGNOSIS: Prostate cancer. STAGE: Stage II B, [id number] ECOG PERFORMANCE STATUS: 3. FOLLOWUP NOTE: Mr. 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 The patient presents today reporting that generally he is doing well but he now has an indwelling catheter for which he is being seen by Dr. Augustine routinely. Dr. Augustine is also doing his PSA studies. The patient's review of systems is positive for all the physical limitations secondary to old age. He also has an indwelling catheter. He denies nausea, vomiting, fevers, chills, night sweats, diplopia, headaches, anxiety, depression, anorexia, visual disturbances, chest pain, bowel movement difficulties. PHYSICAL EXAMINATION: The patient is presenting in a wheelchair. The patient is a well-developed, well-nourished male in no acute distress. HEENT exam is normocephalic, atraumatic. Extraocular movements are intact. There is no palpable cervical, supraclavicular, infraclavicular, axillary, or inguinal lymphadenopathy present. Lungs are clear to auscultation and percussion. Heart has a regular rate and rhythm. Abdomen is benign with no hepatosplenomegaly, masses, or tenderness. Rectal examination reveals a normal anal sphincter tone. His prostate is smooth with no evidence of nodularity. Skeletal examination reveals no tenderness to pressure or percussion of the bony skeleton. Extremities reveal no clubbing, cyanosis, or edema. Neurologic exam is grossly intact, as is the remainder of the physical examination. ASSESSMENT The patient is clinically stable at this time. Since he is being followed and managed so closely by his urologist, Dr. Augustine, I have discharged him from my followup except on an as needed basis. cc: MD Camille JoynerWai, DO
== END ==
LOC: M ONCR 10:48
PROVIDERS: ATTEND Radiology Radiation Oncology
DX: C61 Malignant neoplasm of prostate (principal)

== ENCOUNTER → 2019-01-02 | Outpatient (CLI) | payer MEDICARE, BC, OTHER ==
[~2019-01-02] MED LIST changes: +IPRA0.00 INH; +LEVA1TAB2 PO
--- NOTE | 2019-01-02 13:50 | REP ---
CHEST X-RAY: Four views presented. HISTORY: Bilateral hydronephrosis. COMPARISON CHEST X-RAY: August 22, 2016. FINDINGS: The lungs are quite hyperinflated consistent with significant COPD. There is a bipolar pacemaker in the right heart via the left side. Heart size is normal. Lung seo are clear. Pleural angles are sharp. There are degenerative changes in the thoracic spine. Pulmonary vasculature is not increased. IMPRESSION: Significant hyperinflation consistent with COPD. Pacemaker. Otherwise no acute disease. Electronically Signed by Dustin Calderon MD 01/02/2019 02:20 P
== END ==
LOC: M SMT 11:44
PROVIDERS: ATTEND Nurse Practitioner Women's Health
DX: Z01.818 Encounter for other preprocedural examination (principal); N13.30 Unspecified hydronephrosis; M51.34 Other intervertebral disc degeneration, thoracic region; Z95.0 Presence of cardiac pacemaker

== ENCOUNTER → 2019-01-02 | Outpatient (REF) | payer MEDICARE, OTHER | LOC: M SMT 17:47 | PROVIDERS: ATTEND Nurse Practitioner Women's Health | DX: Z01.818 Encounter for other preprocedural examination (principal); N13.30 Unspecified hydronephrosis; C61 Malignant neoplasm of prostate; R33.9 Retention of urine, unspecified ==

== ENCOUNTER 2019-01-10 09:26 | Day surgery (SDC) | payer MEDICARE, BC, OTHER ==
[~2019-01-10] VITALS: Ht 175.3 cm; Wt 74.6 kg
[~2019-01-10 09:26] MED LIST changes: -LEVA1TAB2 PO; +LR 1,000 ML IV ONE
[2019-01-10] MEDS ORDERED: PROPOFOL 200 MG/20 ML VIAL As Ordered ONE (09:27)
[2019-01-10] MEDS ORDERED: ONDANSETRON 4MG/2ML VIAL (J2405) As Ordered ONE (09:27)
[2019-01-10] MEDS ORDERED: dexameTHASONE 4 MG/ML 1ML VIAL (J1100) As Ordered ONE (09:27)
[2019-01-10] MEDS ORDERED: fentaNYL 100 MCG/2 ML INJECTION (J3010) As Ordered ONE (09:27)
[2019-01-10] MEDS ORDERED: LIDOCAINE 2% INJ 100 MG/5 ML SDV (FOR ANES.) As Ordered ONE (09:27)
[2019-01-10] MEDS ORDERED: LEVA1TAB2 PO (10:03)
[2019-01-10] MEDS ORDERED: ALBUTEROL SULFATE 2.5 MG/0.5 ML INH NEB SOLN As Ordered ONE (10:21)
[2019-01-10] MEDS ORDERED: ALBUTEROL SULFATE 2.5 MG/0.5 ML INH NEB SOLN INH ONE (10:45)
[2019-01-10] MEDS ORDERED: CONRAY-60 60% 50ML VIAL (Q9961) As Ordered ONE (10:53)
[2019-01-10] MEDS ORDERED: LIDOCAINE 2% 5ML JELLY UROJET As Ordered ONE (10:53)
[2019-01-10] MEDS ORDERED: ePHEDrine SULFATE 25 MG/5 ML(5MG/ML) SYRINGE As Ordered ONE (11:39)
[2019-01-10] MEDS ORDERED: PHENYLephrine HCL 500 MCG/5 ML (100MCG/ML) SYRINGE (J2370) As Ordered ONE (11:39)
--- NOTE | 2019-01-10 12:16 | ROOPDOC ---
[facility] Report Of Operation Report of Operation DATE OF PROCEDURE: 01/10/19 PREPROCEDURE DIAGNOSIS: Bilateral hydronephrosis. POSTPROCEDURE DIAGNOSIS: Bilateral hydronephrosis. PROCEDURE: Cystoscopy, bilateral ureteral stent exchange, bilateral retrograde pyelogram with intraoperative interpretation of images. SURGEON: Dr. Zbigniew Little MARKETING TRAFFIC MANAGER: None. ANESTHESIA: MAC. OPERATIVE INDICATIONS: This is an 83-year-old male with bilateral ureteral obstruction managed with chronic ureteral stenting. He was brought to the operating room today for routine stent exchange. DESCRIPTION OF PROCEDURE: The patient was brought to the operating room where MAC anesthesia was administered. Prophylactic antibiotics were infused. He was then placed in dorsal lithotomy position and prepped and draped in the usual sterile fashion. At this point, a rigid cystoscope was inserted into the urethral meatus and advanced to the bladder. Once inside the bladder, the previously placed left ureteral stent was seen. A guidewire was advanced up the left collecting system alongside the stent. The stent was then removed intact. The wire was then utilized to advance advance the sheath for a Resonance stent up the left collecting system. The wire was then removed and a retrograde pyelogram was performed and was notable for mild left hydronephrosis and no extravasation. I then advanced a 6Fr x 26cm Resonance stent up the sheath and into the left collecting system using the pusher. The sheath was then withdrawn, leaving the stent in place with adequate curls in the left renal pelvis and the bladder. A guidewire was then advanced up the right collecting system alongside the stent. The stent was then removed intact. The wire was then utilized to advance advance the sheath for a Resonance stent up the right collecting system. The wire was then removed and a retrograde pyelogram was performed and was notable for mild right hydronephrosis and no extravasation. I then advanced a 6Fr x 24cm Resonance stent up the sheath and into the right collecting system using the pusher. The sheath was then withdrawn, leaving the stent in place with adequate curls in the right renal pelvis and the bladder. The bladder was then emptied of all fluid and this marked the conclusion of the procedure. The patient was then taken out of the dorsal lithotomy position, awakened from anesthesia and transported to the recovery room in stable condition. Estimated blood loss: 5 mL. Complications: None. Specimen: None. Plan: We will get a renal US every 3 months to check for hydronephrosis. As long as there is none, we will try to keep the stents in place and change them once per year. ZBIGNIEW LITTLE MD Jan 10, 2019 12:16
[2019-01-10 12:50] VITALS: BP 153/69
--- NOTE | 2019-01-10 13:12 | REP ---
C-ARM VIEWS ABDOMEN: Four C-arm views of the abdomen are performed. There are bilateral ureteral stents. Pelvicalyceal systems are partially opacified with contrast. Proximal end of each stent is in the respective renal pelvis and the distal ends are in the urinary bladder. 27 seconds fluoroscopy time utilized. Electronically Signed by Efra Enrique MD 01/13/2019 11:16 A
== END 2019-01-10 13:00 | disposition home or self-care (01) ==
LOC: M SDC 09:26
PROVIDERS: ATTEND Urology
DX: N13.1 Hydronephrosis with ureteral stricture, not elsewhere classified (principal); I48.91 Unspecified atrial fibrillation; I12.9 Hypertensive chronic kidney disease with stage 1 through stage 4 chronic kidney disease, or unspecified chronic kidney disease; J44.9 Chronic obstructive pulmonary disease, unspecified; N18.9 Chronic kidney disease, unspecified; Z95.0 Presence of cardiac pacemaker; F03.90 Unspecified dementia, unspecified severity, without behavioral disturbance, psychotic disturbance, mood disturbance, and anxiety; Z87.891 Personal history of nicotine dependence; Z79.899 Other long term (current) drug therapy; Z79.51 Long term (current) use of inhaled steroids; Z92.3 Personal history of irradiation; Z85.46 Personal history of malignant neoplasm of prostate
CPT/HCPCS: 52332; 74420; C1769; C2625; J0690; J1100; J2370; J2405; J3010; Q9961

== ENCOUNTER 2019-02-03 14:57 | Inpatient (IN) | payer MEDICARE, BC, OTHER ==
[~2019-02-03] VITALS: Ht 167.6 cm; Wt 75.9 kg
[2019-02-03] MEDS: methylPREDNISolone INJ 125 MG/2 ML VIAL (J2930) IV SCH (09:00)
[~2019-02-03 14:57] MED LIST changes: +LEVA1TAB2 PO; -LR 1,000 ML IV ONE
[2019-02-03] MEDS ORDERED: IPRATROPIUM 0.5MG/ALBUTEROL 2.5MG INH SOL UD 3ML (DUONEB)(J7620) NEB ONE (15:30)
[2019-02-03] MEDS ORDERED: ALBUTEROL SULFATE 2.5 MG/0.5 ML INH NEB SOLN INH ONE (15:30)
[2019-02-03] MEDS ORDERED: ACET-897 PO (16:09)
[2019-02-03] MEDS ORDERED: IPRATROPIUM 0.5MG/ALBUTEROL 2.5MG INH SOL UD 3ML (DUONEB)(J7620) NEB PRN (16:30)
[2019-02-03] MEDS ORDERED: ACETAMINOPHEN 500 MG TAB PO PRN (16:30)
[2019-02-03] MEDS ORDERED: cefTRIAXone SOD 2 GM in D5W MINI-BAG PLUS 50 ML IV ONE (17:15)
[2019-02-03] MEDS ORDERED: NS 1,000 ML IV ONE (17:30)
[2019-02-03] MEDS ORDERED: SLF 3 ML SYR IV PRN (18:00)
--- NOTE | 2019-02-03 18:23 | REPVR ---
EXAM: CT Chest Without Contrast EXAM DATE/TIME: 02/03/2019 5:15 PM CLINICAL HISTORY: 84 years old, male; Other: Pneumonia; Additional info: ? Left sided pneumonia TECHNIQUE: Imaging protocol: Computed tomography of the chest without contrast. 3D rendering: MIP reconstructed images were created and reviewed. Radiation optimization: All CT scans at this facility use at least one of these dose optimization techniques: automated exposure control; mA and/or kV adjustment per patient size (includes targeted exams where dose is matched to clinical indication); or iterative reconstruction. COMPARISON: CR CHEST 2 VIEWS 01/02/2019 11:58 AM FINDINGS: Limited study without IV contrast and also limited by artifact resulting from the patient being scanned with the arms at the sides of the body. Confluent airspace filling process in the left upper lobe, new since the prior radiographs from 01/02/2019, with peripheral consolidation. No volume loss or central endobronchial lesion. No masslike component. No other concerning focal lung abnormality. Lungs are mildly hyperinflated. Small dependent transient density left pleural effusion is present. No pneumothorax. No enlarged mediastinal lymph nodes. Thoracic aorta is tortuous and ectatic. Right atrial and right ventricular pacer leads are present. No cardiac enlargement. Bilateral urinary stents are incompletely imaged Multi-level, age-related thoracic degenerative disc disease is present. IMPRESSION: Diffuse left upper lobe pneumonia without volume loss, central endobronchial lesion or underlying mass. Associated small dependent left pleural effusion Electronically signed by: Spencer Rubio On 02/03/2019 18:23:10 PM
--- NOTE | 2019-02-03 18:52 | HPE ---
DATE OF ADMISSION: 02/03/2019 PRIMARY CARE PROVIDER: Dr. Camille Guido in [place]. HEDIS COORDINATOR: Dr. Medina UROLOGIST: Blake Augustine MD CHIEF COMPLAINT: Shortness of breath, generalized weakness. HISTORY: Nilesh Goncalves is an 84-year-old transferred from [facility] with fever, leukocytosis, left-sided infiltrate on chest x-ray. He is being admitted to the hospitalist service. He is a patient of Dr. Camille Guido in the [facility]. The patient fell last night, he has been short of breath recently, he has been weaker than typically and he was brought to the [facility] Emergency Room. He had a chest x-ray which showed a left-sided infiltrate. His renal function which is stage IV-V at baseline had deteriorated with creatinine going from a baseline of 3.5 to 4 up to 5.0. He was transferred here on family request for his traffic inspector to see him. Apparently, he has declined dialysis and has a DO NOT RESUSCITATE that specifies DO NOT INTUBATE, IV fluids trial acceptable but no tube feedings, antibiotics and hospitalization acceptable as well. PAST MEDICAL HISTORY: Shows stage IV-V chronic kidney disease, baseline GFR is around 15-20. He has dementia which is described as mild to moderate. History of prostate cancer and has bilateral ureteral stents exchanged periodically by Dr. Blake Augustine most recently 01/10/2019. He had a Klebsiella urinary tract infection (UTI) treated 01/02/2019, an Escherichia (E) coli UTI treated 09/24/2018. It looks like he has had E. coli twice this year and Klebsiella once. 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 ALLERGIES: NEOMYCIN caused contact dermatitis and BACITRACIN caused contact dermatitis, GRAMICIDIN caused contact dermatitis, POLYMYXIN-D caused contact dermatitis, LISINOPRIL caused hyperkalemia and worsened his renal failure. SOCIAL HISTORY: He is . He quit smoking. He has DO NOT RESUSCITATE status. MEDICATIONS: - at [facility] he got clindamycin 600 mg IV times one, Rocephin 2 grams IV times one, and Cipro 400 mg IV times one HOME MEDICATIONS: - amlodipine 5 mg daily - DuoNeb four times a day as needed - vitamin 5000 units daily - I think he is also on calcitriol three times a week SURGICAL HISTORY: Ureteral drainage tubes with jejunostomy (J) stents frequently, most recently 01/20/2019, left ureteral nephrostomy tube 06/2017. FAMILY HISTORY: Noncontributory. REVIEW OF SYSTEMS: No hemoptysis. He has been more short of breath. Denies cough. No lower extremity edema. No chest pain or palpitations. PHYSICAL EXAMINATION: Vital signs: Per emergency room (ER) flow sheet, his blood pressure was 76/50 in [facility], 92/56 here, pulse was read as 30, that is not accurate, he was paced rhythm, pulse of 60, 99.2 degrees, 92% oxygen saturation on 4 liters. General appearance: Elderly, frail, resting comfortably, answers questions. HEENT: Unremarkable. Mucous membranes dry (poor oral intake recently). Neck supple, no adenopathy. Lungs: Decreased breath sounds, rhonchi bilaterally. Heart: Regular rhythm, 1-2 over 6 systolic ejection murmur. Abdomen: Soft, nontender, no masses. Extremities: Trace peripheral edema. No clubbing or cyanosis. Decreased pulses feet. LABORATORY DATA: He did not have any labs done at [facility]. He had a white count at [facility] of 12.5, hemoglobin of 12.3, platelets of 179, sodium 138, potassium 4.0, BUN 55, creatinine 5.0, lactic acid of 4.9. Chest x-ray at [facility] showed a left-sided infiltrate. IMPRESSION: 1. Suspected left-sided community-acquired pneumonia. Patient will be admitted to a medical/surgical bed. DO NOT RESUSCITATE will be honored. Supplemental oxygen will be given. He will be started on Rocephin 2 grams IV daily, next dose tomorrow, doxycycline 100 mg IV every 12 hours, empiric steroids, Solu-Medrol 40 mg daily times 5 days also given. 2. Stage IV-V chronic kidney disease. Case discussed with nephrology/Dr. Moncada who will see the patient on consultation. 3. History of hydronephrosis. He recently had stents placed so I do not think it is probably a significant problem right now. 4. Hypertensive heart disease. He is hypotensive at this point. IV fluids have been ordered. Not bolusing him because of his kidney disease. 5. Dementia. He is apparently prone to altered mental status/delirium in the hospital and reorienting measures should be provided. 6. CODE STATUS: Reviewed. Is a DO NOT RESUSCITATE, a copy of which is present in [place], is DO NOT RESUSCITATE/DO NOT INTUBATE/no tube feedings; trial of IV fluids acceptable.
[2019-02-03 19:02] VITALS: BP 128/63
[2019-02-03 19:22] LABS: HEMATOCRIT 36.5 % (42.0-52.0); HEMOGLOBIN 11.6 g/dl (13.5-17.5); MEAN CORPUSCULAR HGB CONC 31.8 g/dl (32.0-36.5); MEAN CORPUSCULAR VOLUME 103.7 fl (80.0-96.0); PLATELET COUNT, AUTOMATED 141 10^3/uL (150-450); RED BLOOD COUNT 3.52 10^6/uL (4.30-6.10); WHITE BLOOD COUNT 13.2 10^3/uL (4.0-10.0)
[2019-02-03 19:31] LABS: INR 1.25; PROTHROMBIN TIME 15.4 SECONDS (11.8-14.0)
[2019-02-03 19:32] LABS: PARTIAL THROMBOPLASTIN TIME 30.9 SECONDS (25.0-38.4)
[2019-02-03 19:42] LABS: ALBUMIN 2.1 GM/DL (3.2-5.2); BILIRUBIN,TOTAL 0.4 MG/DL (0.2-1.0); CALCIUM LEVEL 8.5 MG/DL (8.8-10.2); CREATININE FOR GFR 5.24 MG/DL (0.70-1.30); GLOMERULAR FILTRATION RATE 11.2 (>35); POTASSIUM SERUM 5.4 MEQ/L (3.5-5.1); TOTAL PROTEIN 5.9 GM/DL (6.4-8.2)
[2019-02-03 20:00] VITALS: BP 107/58
[2019-02-03] MEDS: IPRATROPIUM 0.5MG/ALBUTEROL 2.5MG INH SOL UD 3ML (DUONEB)(J7620) NEB SCH (20:31)
[2019-02-03] MEDS: DOXYCYCLINE HYCLATE 100 MG in D5W MINI-BAG PLUS 100 ML IV SCH (21:46)
[2019-02-03] MEDS: SLF 3 ML SYR IV SCH (21:46)
[2019-02-03] MEDS: HEPARIN SOD (PORCINE) 5000 UNITS/ML VIAL SQ SCH (21:46)
[2019-02-03 23:59] VITALS: BP 112/56
[2019-02-04] MEDS: IPRATROPIUM 0.5MG/ALBUTEROL 2.5MG INH SOL UD 3ML (DUONEB)(J7620) NEB SCH ×4 (01:17→20:00)
[2019-02-04 04:00] VITALS: BP 112/60
[2019-02-04 05:43] LABS: HEMATOCRIT 34.6 % (42.0-52.0); MEAN CORPUSCULAR HEMOGLOBIN 32.9 pg (27.0-33.0); MEAN CORPUSCULAR HGB CONC 31.8 g/dl (32.0-36.5); MEAN CORPUSCULAR VOLUME 103.6 fl (80.0-96.0); PLATELET COUNT, AUTOMATED 132 10^3/uL (150-450); RED BLOOD COUNT 3.34 10^6/uL (4.30-6.10); WHITE BLOOD COUNT 13.2 10^3/uL (4.0-10.0)
[2019-02-04 06:04] LABS: CALCIUM LEVEL 8.8 MG/DL (8.8-10.2); CREATININE FOR GFR 5.83 MG/DL (0.70-1.30); GLOMERULAR FILTRATION RATE 9.9 (>35); POTASSIUM SERUM 5.6 MEQ/L (3.5-5.1)
[2019-02-04 06:19] LABS: LYMPHOCYTES 3 % (16-44); METAMYELOCYTES 2 % (0-0); MONOCYTES 6 % (0-5); NEUTROPHILS 88 % (28-66)
[2019-02-04 06:20] LABS: PLATELET ESTIMATE DECREASED (NORMAL)
[2019-02-04] MEDS: SLF 3 ML SYR IV SCH ×3 (06:33→22:14)
[2019-02-04] MEDS: cefTRIAXone SOD 2 GM in D5W MINI-BAG PLUS 50 ML IV SCH (06:50)
[2019-02-04 08:00] VITALS: BP 139/65
[2019-02-04 08:11] VITALS: BP 140/66
[2019-02-04] MEDS: HEPARIN SOD (PORCINE) 5000 UNITS/ML VIAL SQ SCH ×2 (08:11→21:02)
[2019-02-04] MEDS: methylPREDNISolone INJ 125 MG/2 ML VIAL (J2930) IV SCH (08:11)
[2019-02-04] MEDS: VITAMIN D 1,000 INTERNATIONAL UNITS TABLET PO SCH (08:11)
[2019-02-04] MEDS: MULTIVITAMINS/MINERALS THERAP 1 TAB PO SCH (08:11)
[2019-02-04] MEDS: amLODIPine 5 MG TAB PO SCH (08:11)
[2019-02-04] MEDS: DOXYCYCLINE HYCLATE 100 MG in D5W MINI-BAG PLUS 100 ML IV SCH ×2 (08:11→20:59)
--- NOTE | 2019-02-04 09:01 | IPNPDOC ---
Text Note Date of Service The patient was seen on 02/04/19. NOTE Subjective: Patient seen and examined at bedside. No acute overnight events reported. Patient has no new medical complaints this morning. Feels his breath has improved, denies cough. States he does not use supplemental oxygen at home. Objective: General: NAD, lying comfortably in bed, elderly HEENT: NC/AT, EOMI Lungs: b/l wheezes Heart: +S1S2, RRR Abd: soft, NT, +BS, distended Ext: no edema A/P: 84-year-old male transferred from [facility] with fever, leukocytosis, left-sided infiltrate on chest x-ray. He is a patient of Dr. Kline in the [facility]. Recent fall, SOB, weakness. #Suspected left-sided community-acquired pneumonia - supplemental O2 - ceftriaxone/doxy, steroid - SCx pending - MRSA screen pending # Stage IV-V chronic kidney disease - Case discussed with nephrology/Dr. Moncada who will see the patient on consultation - assistance appreciated #History of hydronephrosis - recently had stents placed -ureteral drainage tubes with jejunostomy stents frequently, most recently 01/20/19; left nephrostomy 06/2017 # Hypertensive heart disease - hypotensive on admission - IV fluids #COPD - history of nicotine abuse #Hx of prostate adenoCA - s/p Lupron therapy #complete heart block - s/p PPM #Dementia -apparently prone to altered mental status/delirium in the hospital and reorienting measures should be provided. #CODE STATUS: DNR/DNI/no tube feedings; trial of IV fluids acceptable Dispo: continue IV abx, wean O2, nephro pending VS,Fishbone, I+O VS, Fishbone, I+O Laboratory Tests 02/03/19 19:03 Red Blood Count 3.52 L, Mean Corpuscular Volume 103.7 H, Mean Corpuscular Hemoglobin 33.0, Mean Corpuscular Hemoglobin Concent 31.8 L, Red Cell Distribution Width 13.5, Calcium Level 8.5 L, Aspartate Amino Transf (AST/SGOT) 35, Alanine Aminotransferase (ALT/SGPT) 15, Alkaline Phosphatase 36 L, Total Bilirubin 0.4, Total Protein 5.9 L, Albumin 2.1 L 02/04/19 05:07 Red Blood Count 3.34 L, Mean Corpuscular Volume 103.6 H, Mean Corpuscular Hemoglobin 32.9, Mean Corpuscular Hemoglobin Concent 31.8 L, Red Cell Distribution Width 13.5, Calcium Level 8.8 Vital Signs Date Time Temp Pulse Resp B/P (MAP) Pulse Ox O2 Delivery O2 Flow Rate FiO2 02/04/19 08:11 140/66 02/04/19 04:00 98.4 100 20 92 3.0 02/03/19 16:45 Nasal Cannula I&O- Last 24 Hours up to 6 AM 02/04/19 06:00 Intake Total 1000 ml Output Total 55 ml Balance 945 ml CHARLEY MAYER MD Feb 04, 2019 09:01
[2019-02-04] MEDS ORDERED: FUROSEMIDE 100 MG/10 ML VIAL (J1940) IV ONE (12:00)
[2019-02-04] MEDS ORDERED: SOD POLYSTYRENE SULFONATE SUSP 15 GM/60 ML UD PO ONE (12:00)
--- NOTE | 2019-02-04 15:39 | REP ---
Clinical: Acute renal failure. Technique: Real time boo scale ultrasound examination using curved array transducer. Findings: The kidneys demonstrate cortical thinning and increased central sinus fat consistent with chronic medical renal disease. Bilateral ureteral stents are noted and there is no evidence for hydronephrosis. Right kidney measures 8.1 x 4.6 x 5.9 cm without nephrolithiasis, cyst or obvious mass lesion. Left kidney measures 10.3 x 3.8 x 3.1 cm without nephrolithiasis or obvious mass lesion and includes 1.3 cm lower pole cyst. Shultz catheter and stents identified in collapsed bladder. Impression: 1. Chronic medical renal disease. 2. 1.3 cm left lower pole renal cyst. 3. Bilateral ureteral stents. Electronically Signed by Priyank Roque MD 02/04/2019 03:30 P
[2019-02-04 16:00] VITALS: BP 140/67
--- NOTE | 2019-02-04 16:00 | REP ---
Clinical: Abdominal pain. Technique: Two supine views of the abdomen and pelvis. Findings: High-grade small bowel obstruction is suggested and requires correlation. No definite free air. Bilateral ureteral stents. Skeletal structures demonstrate age-related degenerative changes. Evidence of prior prostate surgery. Impression: 1. Findings suggest high-grade small bowel obstruction and correlation is required. Electronically Signed by Priyank Roque MD 02/04/2019 03:52 P
[2019-02-04] MEDS ORDERED: ONDANSETRON 4MG/2ML VIAL (J2405) IV ONE (19:00)
[2019-02-04 20:00] VITALS: BP 116/57
[2019-02-04] MEDS ORDERED: MORPHINE 4 MG/ML 1ML VIAL/SYRINGE (J2270) IV ONE (21:00)
[2019-02-04 23:59] VITALS: BP 94/59
--- NOTE | 2019-02-05 00:06 | CR ---
DATE OF CONSULTATION: 02/04/2019 REQUESTING PHYSICIAN: Dr. Cr Vitale CONSULTING PHYSICIAN: Dr. Alisha Moncada REASON FOR CONSULTATION: Management of acute kidney injury superimposed on chronic kidney disease stage IV. CHIEF COMPLAINT: The patient presented to the hospital yesterday with shortness of breath and generalized weakness. HISTORY OF PRESENT ILLNESS: Mr. Nilesh Goncalves is an 84-year-old male with past medical history of chronic kidney disease stage IV with a baseline creatinine of around 3.7 as of September 2018, history of obstructive uropathy in the past requiring chronic indwelling Shultz catheter and ureteral stent placement. He follows up with the Dr. Medina as an outpatient. He has refused to have any renal replacement therapy in the future; he just wants conservative medical management. He was transferred from [facility] yesterday because of fever, leukocytosis. Further evaluation showed that the patient had left upper lobe pneumonia. He was also found to be in acute renal failure. His creatinine was 5.2 yesterday on arrival. Nephrology service was called for further help in the management of this patient with acute renal failure superimposed on chronic kidney disease. The patient was admitted under the hospitalist service. He was given gentle IV fluid hydration overnight. I saw and evaluated the patient today morning at the bedside. He apparently was in about moderate painful distress with some shortness of breath, and I discussed with the patient again that he was in renal failure. However, he is adamantly refusing to have any renal replacement therapy in the future. He is currently on IV antibiotics for left upper lobe pneumonia. PAST MEDICAL HISTORY: History of chronic kidney disease stage IV and history of obstructive uropathy, baseline creatinine of around 3.7 as per previous records, history of dementia, prostate cancer with bilateral hydroureteronephrosis in the past requiring ureteral stent placement, chronic indwelling Shultz catheter, history of urinary tract infection (UTIs), chronic obstructive pulmonary disease (COPD), adenocarcinoma of the prostate, hypertension. PAST SURGICAL HISTORY: History of bilateral ureteral stent placements in the past, last one was changed 1 month ago. ALLERGIES: The patient is allergic to BACITRACIN, GRAMICIDIN, LISINOPRIL, NEOMYCIN AND POLYMYXIN B. FAMILY HISTORY: No significant family history of end-stage renal disease requiring hemodialysis. SOCIAL HISTORY: The patient lives at home. He denies any illicit drug abuse. He is a former smoker. The patient is DO NOT RESUSCITATE (DNR), and he does not want any renal replacement therapy. REVIEW OF SYSTEMS: I was unable to do reliable review of systems. However, he denies any fevers. He denies any blurry vision or double vision. He denies any dysphagia, odynophagia. Cardiovascular: He denies any chest pain or lower extremity edema. Respiratory: He does report shortness of breath. Gastrointestinal (GI): He reports decreased appetite and abdominal pain. Genitourinary: He reports chronic indwelling Shultz. Musculoskeletal: He denies any muscle aches and pains. Skin: He denies any rashes or ulcers. Hematology/Oncology: He denies any easy bleeding or bruising. All other review of systems is negative. PHYSICAL EXAMINATION: General: The patient is awake, alert, oriented times two, laying in bed, in moderate painful distress. Vital signs: Temperature is 97.2 degrees Fahrenheit, blood pressure 116/57, pulse is 90, respiratory rate of 20, saturating 92% on 2 liters by nasal cannula. Intake and output: Urine output recorded yesterday is 25 mL and urine output recorded so far today since overnight is 130 mL. Head and neck exam: Extraocular muscles intact. Pupils equally round and reactive to light. Mucous membranes are moist. Neck is supple. There is mildly elevated jugular venous distention (JVD). Cardiovascular: S1, S2, regular rate, 1+ edema of the bilateral lower extremities. Respiratory: Decreased breath sounds bilaterally at the bases with mild respiratory crackles at the bases up to the mid lung zones. Abdomen is soft. Positive bowel sounds, and moderate amount of tenderness to deep palpation. Genitourinary: He has an indwelling Shultz catheter. There is a lot of debris in the Shultz catheter. Musculoskeletal: No clubbing or cyanosis. Pulses are 2+. Central nervous system ([employer]): The patient is oriented times two. He moves extremities and follows commands. LAB REVIEW: CBC showed a WBC of 13.2, hemoglobin is 11, platelets are 132. BMP showed sodium 138, potassium 5.6, chloride 102, bicarbonate 29, BUN 81, creatinine is 5.8, lactic acid is 2.3, calcium is 8.8. IMAGING STUDIES: A CT of the chest was done yesterday, which showed diffuse left upper lobe pneumonia without volume loss, central endobronchial lesion or underlying mass. A small dependent left pleural effusion. The patient also had abdominal x-ray done today in the afternoon, which showed findings suggestive of high-grade small bowel obstruction. CURRENT INPATIENT MEDICATIONS: The patient's medications were all reviewed by me. He is currently on IV doxycycline and IV Rocephin. He is on Tylenol as needed, amlodipine 5 mg by mouth daily, calcitriol 0.25 mcg by mouth Sunday, Sunday. He was given a dose of Lasix injections 60 mg IV times one dose. He is on Solu-Medrol 40 mg IV daily, morphine as needed, multivitamin one tablet daily, Zofran as needed, Kayexalate 30 grams by mouth - one dose was given today. ASSESSMENT: 84-year-old male with a history of obstructive uropathy with acute kidney injury superimposed on chronic kidney disease stage IV, left upper lobe community-acquired pneumonia along with acute small bowel obstruction. PLAN: 1. Acute kidney injury superimposed on chronic kidney disease stage IV. The patient got the renal ultrasound done, which did not show any hydronephrosis. He has bilateral ureteral stents. The patient is in oliguric renal failure. I discussed renal dialysis with this patient. However, the patient is adamantly refusing. Without dialysis, the patient is unlikely to improve at this time. I tried giving him a dose of Lasix. He did not respond well to the dose of Lasix. However, the patient is in small bowel obstruction at this time, and he is going to have nasogastric tube with suctioning. I am going to start him on gentle fluid hydration. 2. Hyperkalemia. It is secondary to acute renal failure, potassium is 5.6. He was given a dose of Kayexalate before we had the result of the x-ray, KUB. Since he has intestinal obstruction, he should not get any more doses of oral Kayexalate. If needed, the patient can be given rectal Kayexalate if potassium stays above 5.5. 3. Acute small bowel obstruction. The patient is going to have nothing by mouth status with nasogastric tube sectioning. Gentle IV fluid hydration to be started. 4. Acute left-sided upper lobe pneumonia. Patient is already on IV antibiotic, including doxycycline and Rocephin for pneumonia. There is a questionable mass in the lung as well. Given his medical condition, he is not going to be able to get any further workup done. 5. Hypertension with end-stage renal disease. The patient is currently on amlodipine 5 mg daily. Blood pressure is acceptable for now. 6. Secondary hyperparathyroidism. At this point, there is no urgency to stop his hyperparathyroidism. I am going to stop the calcitriol. 7. History of obstructive uropathy and bilateral hydroureteronephrosis. The patient has bilateral ureteral stents and indwelling Shultz catheter. No evidence of hydronephrosis on repeat ultrasound. Thank you for involving me in the care of this patient. I shall be happy to follow the patient along with you tomorrow morning. DISPOSITION: The patient overall has a very poor prognosis given left upper lobe pneumonia with possible malignancy in the lung, acute renal failure, not a candidate for dialysis, and small bowel obstruction. Overall prognosis is poor. Consider getting palliative care on board.
[2019-02-05] MEDS ORDERED: MORPHINE 4 MG/ML 1ML VIAL/SYRINGE (J2270) IV PRN ×2 (01:00→18:00)
[2019-02-05] MEDS: IPRATROPIUM 0.5MG/ALBUTEROL 2.5MG INH SOL UD 3ML (DUONEB)(J7620) NEB SCH ×4 (01:31→19:30)
[2019-02-05 04:00] VITALS: BP 111/56
[2019-02-05 05:58] LABS: HEMATOCRIT 34.1 % (42.0-52.0); HEMOGLOBIN 10.5 g/dl (13.5-17.5); MEAN CORPUSCULAR HEMOGLOBIN 32.1 pg (27.0-33.0); MEAN CORPUSCULAR HGB CONC 30.8 g/dl (32.0-36.5); MEAN CORPUSCULAR VOLUME 104.3 fl (80.0-96.0); PLATELET COUNT, AUTOMATED 138 10^3/uL (150-450); RED BLOOD COUNT 3.27 10^6/uL (4.30-6.10)
[2019-02-05] MEDS: SLF 3 ML SYR IV SCH ×3 (06:04→21:35)
[2019-02-05 06:29] LABS: ANISOCYTOSIS 2+; LYMPHOCYTES 4 % (16-44); MONOCYTES 1 % (0-5); NEUTROPHILS 95 % (28-66); PLATELET ESTIMATE NORMAL (NORMAL)
[2019-02-05 06:35] LABS: CALCIUM LEVEL 9.2 MG/DL (8.8-10.2); CREATININE FOR GFR 7.04 MG/DL (0.70-1.30); GLOMERULAR FILTRATION RATE 7.9 (>35); POTASSIUM SERUM 6.7 MEQ/L (3.5-5.1)
[2019-02-05] MEDS: cefTRIAXone SOD 2 GM in D5W MINI-BAG PLUS 50 ML IV SCH (06:43)
[2019-02-05] MEDS ORDERED: ALBUTEROL SULFATE 2.5 MG/0.5 ML INH NEB SOLN NEB ONE (06:45)
[2019-02-05] MEDS ORDERED: CALCIUM GLUCONATE 1,000 MG in D5W MINI-BAG PLUS 100 ML IV ONE (06:45)
[2019-02-05] MEDS ORDERED: DEXTROSE 50% 50 ML SYRINGE IV STA (06:45)
[2019-02-05] MEDS ORDERED: HumuLIN R (REGULAR) INSULIN (NovoLIN R) **100U/ML** PER UNIT SC STA (06:45)
[2019-02-05 08:00] VITALS: BP 116/56
[2019-02-05] MEDS: MULTIVITAMINS/MINERALS THERAP 1 TAB PO SCH (09:00)
[2019-02-05] MEDS: VITAMIN D 1,000 INTERNATIONAL UNITS TABLET PO SCH (09:00)
[2019-02-05] MEDS ORDERED: CALCITRIOL 0.25 MCG CAP (S0169) PO SCH (09:00)
[2019-02-05] MEDS: amLODIPine 5 MG TAB PO SCH (09:00)
[2019-02-05] MEDS: methylPREDNISolone INJ 125 MG/2 ML VIAL (J2930) IV SCH (09:35)
[2019-02-05] MEDS: DOXYCYCLINE HYCLATE 100 MG in D5W MINI-BAG PLUS 100 ML IV SCH (09:36)
[2019-02-05] MEDS: HEPARIN SOD (PORCINE) 5000 UNITS/ML VIAL SQ SCH ×2 (09:36→21:35)
[2019-02-05] MEDS ORDERED: D5/0.45%NACL 1000ML IV ONE (09:45)
[2019-02-05 10:25] LABS: CALCIUM LEVEL 8.8 MG/DL (8.8-10.2); CREATININE FOR GFR 7.3 MG/DL (0.70-1.30); GLOMERULAR FILTRATION RATE 7.6 (>35)
--- NOTE | 2019-02-05 10:39 | IPNPDOC ---
Text Note Date of Service The patient was seen on 02/05/19. NOTE Subjective: Patient seen and examined at bedside. Patient was agitated and in discomfort last night, partly due to placement of NG tube. Received morphine for pain control. This morning he is lethargic, arousable but not conversant. An abdominal KUB yesterday revealed high level SBO. Objective: General: NAD, lying comfortably in bed, elderly HEENT: NC/AT Lungs: b/l wheezes Heart: +S1S2, RRR Abd: soft, hypoactive bowel sounds, distended Ext: no edema A/P: 84-year-old male transferred from [facility] with fever, leukocytosis, left-sided infiltrate on chest x-ray, falls, SOB and weakness. Hospital stay complicated with SBO and hyperkalemia. He is a patient of Dr. Camille Guido in the [facility]. #SBO - surgical consultation pending - NPO/NG tube #sepsis- secondary to left-sided community-acquired pneumonia - supplemental O2 - ceftriaxone/doxy, steroid - SCx pending - MRSA screen pending # BONI/CKD in the setting of sepsis - follow as per nephrology - assistance appreciated #History of hydronephrosis - recently had stents placed -ureteral drainage tubes with jejunostomy stents frequently, most recently 01/20/19; left nephrostomy 06/2017 - ultrasound no acute findings # Hypertensive heart disease - hypotensive on admission - resolved with IV fluids #COPD - history of nicotine abuse #Hx of prostate adenoCA - s/p Lupron therapy #complete heart block - s/p PPM #Dementia #CODE STATUS: DNR/DNI/no tube feedings; trial of IV fluids acceptable Dispo: palliative care c/s pending; surgical c/s pending; patient yesterday stated not interested in HD, not clear regarding NG tube, follow up with palliative care VS,Nichole, I+O VS, Nichole, I+O Laboratory Tests 02/05/19 05:33 Red Blood Count 3.27 L, Mean Corpuscular Volume 104.3 H, Mean Corpuscular Hemoglobin 32.1, Mean Corpuscular Hemoglobin Concent 30.8 L, Red Cell Distribution Width 13.7, Lymphocytes # (Auto) , Calcium Level 9.2 02/05/19 09:39 Calcium Level 8.8 Vital Signs Date Time Temp Pulse Resp B/P (MAP) Pulse Ox O2 Delivery O2 Flow Rate FiO2 02/05/19 08:00 97.9 87 18 116/56 (76) 91 2.0 02/03/19 16:45 Nasal Cannula I&O- Last 24 Hours up to 6 AM 02/05/19 06:00 Intake Total 320 ml Output Total 1650 ml Balance -1330 ml CHARLEY MAYER MD Feb 05, 2019 10:39
[2019-02-05 12:00] VITALS: BP 127/58
[2019-02-05] MEDS: D5W/0.45% SODIUM CHLORIDE 1,000 ML IV SCH (12:30)
[2019-02-05] MEDS ORDERED: SOD POLYSTYRENE SULFONATE SUSP 30 GM/120 ML ENEMA PR ONE (13:00)
--- NOTE | 2019-02-05 13:48 | IPN ---
DATE OF SERVICE: 02/05/2019 SUBJECTIVE: The patient was seen and examined at the bedside. His and one of his nieces were present at the bedside. There is no significant improvement in the renal function. Renal function actually continues to deteriorate. His hyperkalemia was worse. The patient was given hyperkalemia medications, including insulin, D50. I have ordered a dose of Kayexalate, as well. The patient got the nasogastric tube (NGT) placement, and he is getting suctioning of the gastric contents. The patient is clinically worse today as compared with yesterday. OBJECTIVE: Vital signs: Temperature is 97.9 degrees Fahrenheit, blood pressure 116/56, pulse is 87, respiratory rate of 18, saturating 91% on 2 liters via nasal cannula. Intake and output: Urine output recorded is only 190 mL. Gastric drainage total is 1 liter yesterday, 350 mL today. Weight in the bed scale is 75.3 kg. PHYSICAL EXAMINATION: General: The patient is sleepy and drowsy and obtunded, laying in bed. Head and neck examination: The patient has bitemporal wasting. Mucous membranes are dry. He has an NGT which is attached to suctioning. Cardiovascular: S1, S2, regular rate. Trace edema on the bilateral lower extremities. Respiratory: Decreased breath sounds at the bases with the mild inspiratory crackles at the bases. Abdomen is distended with very diminished bowel sounds and tender to deep palpation. Genitourinary: He has an indwelling Shultz catheter. A very small amount of urine in the bag was noted. Musculoskeletal: No clubbing or cyanosis. Pulses are 2+. 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 He moves extremities on painful stimuli. LABORATORY REVIEW: Complete blood count (CBC) showed a WBC of 18, hemoglobin is 10.5, platelets are 138. Basic metabolic profile (BMP) showed sodium 139, potassium is 6 (it was 6.7 med dir today), chloride 100, bicarbonate 27, BUN 110, creatinine is 7.3, calcium is 8.8. CURRENT INPATIENT MEDICATIONS: The patient's medications were all reviewed by me. He continues to be on intravenous (IV) antibiotics. I have given him a dose of D5 half-normal saline 500 mL bolus. I have also started him on D5 half-normal saline at 75 mL/h. I have ordered a dose of Kayexalate rectal enema. ASSESSMENT AND PLAN: 1. Acute kidney injury superimposed on chronic kidney disease stage IV. The patient has progressed to end-stage renal disease. He himself does not want any dialysis, and his is present at the bedside, and they have also decided that the patient should not get any renal replacement therapy. Continue the conservative management since he is getting NGT suctioning. I have started him on IV fluid hydration. 2. Hyperkalemia. Potassium is worse today morning. The patient was given insulin and D50 and calcium. I have also ordered a dose of Kayexalate without hemodialysis. This is just going to be a temporary effect. The patient is going to have recurrent hyperkalemia if his renal function does not improve. 3. Acute some small bowel obstruction. The patient is getting NGT suctioning. Continue IV fluid hydration. 4. Left-sided pneumonia. The patient is on IV antibiotics. White cell count is persistently high. DISPOSITION: The patient has a very poor prognosis because of pneumonia, acute small bowel obstruction, and acute renal failure. I discussed with the patient's to consider hospice and palliative care. However, they want to continue the medications for a few more days before deciding about palliative care.
[2019-02-05 16:00] VITALS: BP 132/60
[2019-02-05] MEDS: PIPERACILLIN/TAZOBACTAM SOD 2.25 GM in D5W MINI-BAG PLUS 50 ML IV SCH (18:44)
[2019-02-05 20:00] VITALS: BP 118/57
[2019-02-05] MEDS: MORPHINE 4 MG/ML 1ML VIAL/SYRINGE (J2270) IV PRN (21:37)
[2019-02-05 23:59] VITALS: BP 112/62
[2019-02-06] MEDS: SLF 3 ML SYR IV SCH ×3 (01:46→22:00)
[2019-02-06] MEDS: IPRATROPIUM 0.5MG/ALBUTEROL 2.5MG INH SOL UD 3ML (DUONEB)(J7620) NEB SCH ×4 (02:15→20:00)
[2019-02-06] MEDS: MORPHINE 4 MG/ML 1ML VIAL/SYRINGE (J2270) IV PRN ×5 (02:19→22:58)
[2019-02-06 04:00] VITALS: BP 98/49
[2019-02-06 06:08] LABS: HEMATOCRIT 33.9 % (42.0-52.0); HEMOGLOBIN 10.5 g/dl (13.5-17.5); MEAN CORPUSCULAR HEMOGLOBIN 32.1 pg (27.0-33.0); MEAN CORPUSCULAR VOLUME 103.7 fl (80.0-96.0); RED BLOOD COUNT 3.27 10^6/uL (4.30-6.10); WHITE BLOOD COUNT 13.9 10^3/uL (4.0-10.0)
[2019-02-06 06:32] LABS: PLATELET COUNT, AUTOMATED 91 10^3/uL (150-450)
[2019-02-06 06:34] LABS: LYMPHOCYTES 1 % (16-44); MONOCYTES 3 % (0-5); NEUTROPHILS 95 % (28-66)
[2019-02-06 06:35] LABS: PLATELET ESTIMATE DECREASED (NORMAL); TOXIC GRANULATION 2+
[2019-02-06 06:37] LABS: CALCIUM LEVEL 8.5 MG/DL (8.8-10.2); CREATININE FOR GFR 7.63 MG/DL (0.70-1.30); GLOMERULAR FILTRATION RATE 7.2 (>35); POTASSIUM SERUM 6.2 MEQ/L (3.5-5.1)
[2019-02-06] MEDS: PIPERACILLIN/TAZOBACTAM SOD 2.25 GM in D5W MINI-BAG PLUS 50 ML IV SCH ×2 (06:39→18:13)
[2019-02-06] MEDS ORDERED: DEXTROSE 50% 50 ML SYRINGE IV STA (07:00)
[2019-02-06] MEDS ORDERED: HumuLIN R (REGULAR) INSULIN (NovoLIN R) **100U/ML** PER UNIT IV STA (07:00)
[2019-02-06 08:00] VITALS: BP 98/57
[2019-02-06] MEDS: methylPREDNISolone INJ 40 MG/1 ML VIAL (J2920) IV SCH (08:09)
[2019-02-06] MEDS: HEPARIN SOD (PORCINE) 5000 UNITS/ML VIAL SQ SCH ×2 (08:10→09:00)
[2019-02-06] MEDS: D5W/0.45% SODIUM CHLORIDE 1,000 ML IV SCH ×2 (09:29→16:14)
[2019-02-06 12:00] VITALS: BP 110/55
--- NOTE | 2019-02-06 14:45 | IPNPDOC ---
Text Note Date of Service The patient was seen on 02/06/19. NOTE Subjective: Patient seen and examined at bedside. 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 Plan is for home hospice. Objective: General: NAD, lying comfortably in bed, elderly HEENT: NC/AT Lungs: b/l wheezes Heart: +S1S2, RRR Abd: soft, hypoactive bowel sounds Ext: no edema A/P: 84-year-old male transferred from [facility] with fever, leukocytosis, left-sided infiltrate on chest x-ray, falls, SOB and weakness. Hospital stay complicated with SBO and hyperkalemia. He is a patient of Dr. Camille Guido in the [facility]. #SBO -NG tube for comfort #sepsis- secondary to left-sided community-acquired pneumonia - supplemental O2 - ceftriaxone/doxy, steroid - will continue with treatment until discharge home hospice tomorrow # BONI/CKD in the setting of sepsis #History of hydronephrosis # Hypertensive heart disease - hypotensive on admission #COPD - history of nicotine abuse #Hx of prostate adenoCA - s/p Lupron therapy #complete heart block - s/p PPM #Dementia Disp: plan for discharge home with hospice tomorrow. Will continue with treatments for now as patient family hoping for patient to survive through to discharge home. VS,Fishbone, I+O VS, Fishbone, I+O Laboratory Tests 02/06/19 05:16 Red Blood Count 3.27 L, Mean Corpuscular Volume 103.7 H, Mean Corpuscular Hemogl obin 32.1, Mean Corpuscular Hemoglobin Concent 31.0 L, Red Cell Distribution Width 13.7, Lymphocytes # (Auto) , Calcium Level 8.5 L Vital Signs Date Time Temp Pulse Resp B/P (MAP) Pulse Ox O2 Delivery O2 Flow Rate FiO2 02/06/19 12:00 97.5 79 19 110/55 (73) 96 2.0 02/03/19 16:45 Nasal Cannula I&O- Last 24 Hours up to 6 AM 02/06/19 05:59 Intake Total 1232.5 ml Output Total 1620 ml Balance -387.5 ml CHARLEY MAYER MD Feb 06, 2019 14:45
[2019-02-06] MEDS ORDERED: LORA0.5T11 PO (14:48)
[2019-02-06] MEDS ORDERED: MORP20SO3 PO (14:48)
[2019-02-06] MEDS ORDERED: HYOS125TA PO (14:48)
--- NOTE | 2019-02-06 21:38 | IPN ---
DATE: 02/06/2019 SUBJECTIVE The patient was seen and examined at the bedside today morning. The patient is clinically deteriorating. His was present at the bedside. One of his niece's who is a Hospice nurse was also present at the bedside today and I met the rest of his family members as well. There are no signs of improvement of his renal function. The patient continues to have NGT attached to suctioning. The patient is persistently hyperkalemic and his creatinine has been running above 7. Patient is obtunded and uremic and he is unable to engage in any conversation. OBJECTIVE Vital signs: Temperature is 97.5 degrees Fahrenheit, blood pressure 110/55, pulse is 79, respiratory rate of 19, saturating 96% on 2 liters by nasal cannula. Intake and output: Urine output recorded as 520 mL yesterday, 175 mL so far today since overnight. Weight in the bed scale is 75.9 kg. PHYSICAL EXAMINATION General: The patient is moaning and groaning laying in bed obtunded, unable to follow commands. Head and neck examination: Patient's eyes are closed. Pupils are equally round and reactive to light. Mucous membranes are moist. He has an nasogastric tube attached to suctioning. Neck is supple. There is no jugular venous distention (JVD). Cardiovascular: S1, S2, regular rate. Trace edema of the bilateral lower extremities. Respiratory: Decreased breath sounds at the bases, otherwise no active rales or rhonchi. Abdomen: Soft, distended. Decreased bowel sounds and tender to deep palpation all over the abdomen. Genitourinary: Patient has an indwelling Shultz catheter. Small amount of urine in the bag was noted. Musculoskeletal: No clubbing or cyanosis. Pulses are 2+. 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 He does not follow any commands. Eyes are closed. LAB REVIEW: CBC showed a WBC of 13.9, hemoglobin is 10.5, platelets are 91. BMP showed sodium 136, potassium 6.2, chloride 100, bicarb 26, BUN 124, creatinine is 7.6, glucose is 138, calcium is 8.5. Microbiology: Blood cultures are negative so far. CURRENT INPATIENT MEDICATIONS The patient's medications were all reviewed by me. He continues to be on IV fluid hydration with D5 half NS at 75 mL an hour. His antibiotics were changed to Zosyn 2.25 grams every 12 hourly yesterday. His Solu-Medrol dose has been decreased to 20 mg IV daily. No other change in the medications today as compared with yesterday. ASSESSMENT/PLAN 1. Acute kidney injury superimposed on chronic kidney disease stage IV. The patient is in oliguric renal failure at this time. He is hyperkalemic. He is uremic. The patient himself and family did not want any renal replacement therapy. He is just getting IV fluid hydration. 2. Hyperkalemia. The patient is in renal failure, potassium is persistently above 6. Potassium would not improve without hemodialysis. He was given a dose of Kayexalate rectal enema yesterday. He has not moved his bowels. I would not give him more Kayexalate. 3. Acute small bowel obstruction. The patient is getting NGT sectioning. He is nothing by mouth (npo). Continue IV fluid D5 half-normal saline at 75 mL an hour. 4. Left-sided pneumonia. The patient is getting Zosyn now. White cell count is slightly better today as compared with yesterday. 5. Disposition. I discussed the patient's current status in detail with the patient's family members without dialysis. The patient is unlikely to survive. Family wants [facility] to be involved and they want to take him home with Hospice services. At this point family wants to continue all the treatments so that he survives until he reaches his home. At this point, nephrology service has nothing else to offer. I have discussed this with the primary hospitalist team, Dr. Shane Vazquez as well. Hospice consult has been requested. Nephrology service is going to sign off at this moment.
--- NOTE | 2019-02-06 22:52 | IPN ---
DATE: 02/05/2019 HISTORY: Patient is an 84-year-old man who was admitted on February 03, 2019. He was admitted for significant left upper lobe pneumonia identified on CT scan. He had evidence for sepsis with acute renal failure on top of significant chronic renal failure. When seen previously, he has not been communicative. He was apparently felt to have a bowel obstruction based on an abdominal x-ray, though his admitting history was not suggestive of a bowel obstruction and he has had no prior abdominal surgery noted. Vital signs: Show that he has been afebrile. His pulse has been in the 78-90 range, and his blood pressure has been generally acceptable in the low 100s. Intake and output shows that on February 04, 2019, he had 320 recorded in with 1200 mL recorded out, much of it from his nasogastric (NG) tube. PHYSICAL EXAMINATION: The patient is lying quietly in bed. He has noisy respirations. He does not respond to gentle voice or to palpation of his abdomen during the exam. Heart exam shows a regular rhythm. The lungs show generally clear breath sounds, but there is significant upper airway noise. The abdomen is perhaps mildly protuberant. He does have a few bowel sounds present. The abdomen is soft and does not appear to have any significant tenderness. No masses appreciated. Laboratory studies show that his white count on the morning February 05, 2019, was 18,000 with a differential showing 95% neutrophils and 4% lymphocytes. Hemoglobin is 10 with a hematocrit of 34 and the platelet count is 138,000. Chemistry profile early in the morning showed a sodium of 137, potassium 6.7, chloride 103, CO2 of 24, BUN of 102, creatinine 7.0 and a glucose of 96. IMPRESSION: The patient is clearly quite ill. He has baseline severe renal failure which is currently acutely worse. He has a DO NOT RESUSCITATE/DO NOT INTUBATE order in place. He has previously indicated that he is not interested in undergoing dialysis for his renal failure at any time. The etiology of his deterioration is not entirely clear. I am not fully convinced that he has an intestinal obstruction. He certainly had a lot of air throughout his gastrointestinal (GI) tract on his x-ray yesterday, but his presentation was not typical of an obstruction. He has had some bilious output from his NG tube. This could be related to an anatomic obstruction or perhaps to an ileus associated with sepsis. He has not had a CT scan of the abdomen. PLAN: At this point, I would recommend continued nonoperative management of his possible obstruction. The NG tube appears to be draining adequately. The abdomen is soft and does not appear significantly tender, although his mental state may obscure tenderness on exam. He has been started on antibiotics, and this certainly seems appropriate. In the face of his hyperkalemia and worsened renal failure, I am not optimistic that he will recover from this significant insult to his system.
[2019-02-06] MEDS ORDERED: MORPHINE 4 MG/ML 1ML VIAL/SYRINGE (J2270) IV ONE (23:00)
[2019-02-07] MEDS: IPRATROPIUM 0.5MG/ALBUTEROL 2.5MG INH SOL UD 3ML (DUONEB)(J7620) NEB SCH ×2 (01:57→07:18)
[2019-02-07] MEDS: MORPHINE 4 MG/ML 1ML VIAL/SYRINGE (J2270) IV PRN ×4 (03:10→10:24)
[2019-02-07] MEDS: SLF 3 ML SYR IV SCH (06:00)
[2019-02-07] MEDS: PIPERACILLIN/TAZOBACTAM SOD 2.25 GM in D5W MINI-BAG PLUS 50 ML IV SCH (06:41)
[2019-02-07] MEDS: methylPREDNISolone INJ 40 MG/1 ML VIAL (J2920) IV SCH (08:09)
--- NOTE | 2019-02-07 12:44 | DS.PDOC ---
Discharge Summary General Date of Admission Feb 03, 2019 at 16:18 Date of Discharge 02/07/19 Specialist/Consultants Involve: SHEBA LYON MD Specialist/Consultants Involve Dr. Elise Discharge Summary PROCEDURES PERFORMED DURING STAY: [None]. ADMITTING DIAGNOSES: 1. CKD/BONI 2. CAP DISCHARGE DIAGNOSES: #SBO #sepsis- secondary to left-sided community-acquired pneumonia # BONI/CKD in the setting of sepsis # Hypertensive heart disease #COPD #Hx of prostate adenoCA #complete heart block #Dementia COMPLICATIONS/CHIEF COMPLAINT: Community Acquired Pneumonia,Chronic Kidney Diseas. HISTORY OF PRESENT ILLNESS: 84-year-old male transferred from [facility] with fever, leukocytosis, left-sided infiltrate on chest x-ray. He is being admitted to the hospitalist service. He is a patient of Dr. Camille Guido in the [facility]. The patient fell, has been short of breath, and has been weaker than typically and he was brought to the [facility] Emergency Room. He had a chest x-ray which showed a left-sided infiltrate. His renal function which is stage IV-V at baseline had deteriorated with creatinine going from a baseline of 3.5 to 4 up to 5.0. 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 Apparently, he has declined dialysis and has a DO NOT RESUSCITATE that specifies DO NOT INTUBATE, IV fluids trial acceptable but no tube feedings, antibiotics and hospitalization acceptable as well. HOSPITAL COURSE: Patient failed to improve with fluids and anti-microbial therapy. His renal function continued to deteriorate, and was not a candidate for HD as per his personal advanced directives. He developed a small bowel obstruction which was treated conservatively with an NG tube for decompression. On discussion with his family, they opted for comfort measures only as per his known wishes, and he was discharge home with hospice. DISCHARGE MEDICATIONS: Please see below. ALLERGIES: Please see below. PHYSICAL EXAMINATION ON DISCHARGE: VITAL SIGNS: Please see below. Objective: General: NAD, lying comfortably in bed, elderly HEENT: NC/AT Lungs: b/l wheezes Heart: +S1S2, RRR Abd: soft, hypoactive bowel sounds Ext: no edema LABORATORY DATA: Please see below. ACTIVITY: [As tolerated]. DIET: As tolerated DISPOSITION: 50 Hospice Home. DISCHARGE INSTRUCTIONS: 1. Further instruction as per home hospice. DISCHARGE CONDITION: [Stable]. TIME SPENT ON DISCHARGE: 35 minutes. Vital Signs/I&Os Vital Signs Date Time Temp Pulse Resp B/P (MAP) Pulse Ox O2 Delivery O2 Flow Rate FiO2 02/07/19 10:34 18 02/07/19 10:24 96 2.0 02/06/19 12:00 97.5 79 110/55 (73) 02/03/19 16:45 Nasal Cannula I&O- Last 24 Hours up to 6 AM 02/07/19 06:00 Intake Total 930 ml Output Total 425 ml Balance 505 ml Microbiology Microbiology 02/05/19 Blood Culture - Preliminary, Resulted No growth after 24 hours . All specim... 02/05/19 Blood Culture - Preliminary, Resulted No growth after 24 hours . All specim... 02/05/19 Urine Culture - Final, Complete Discharge Medications Scheduled PRN Hyoscyamine Sulfate (Hyoscyamine Sulfate) 0.125 Mg Tab.subl, 0.125 MG PO Q4HP PRN for TERMINAL SECRETIONS Use sublingually if unable to swallow Ipratropium/Albuterol Sulfate (Iprat-Albut 0.5-3(2.5) mg/3 ml) 3 Ml Ampul.neb, 1 INHALATION INH QID PRN for SOB/WHEEZING, (Reported) Lorazepam (Lorazepam) 0.5 Mg Tablet, 0.5 MG PO Q4HP PRN for ANXIETY/AGITATION Use sublingually if unable to swallow Morphine Sulfate (Morphine Sulfate) 100 Mg/5 Ml Solution, 0.25-1 ML PO Q2H PRN for PAIN OR DYSPNEA Use sublingually if unable to swallow Allergies Coded Allergies: bacitracin (Verified Allergy, Unknown, contact dermatitis , 02/03/19) gramicidin D (Verified Allergy, Unknown, contact dermatitis, 02/03/19) lisinopril (Verified Allergy, Unknown, renal failure, 02/03/19) neomycin (Verified Allergy, Unknown, contact dermatitis, 02/03/19) polymyxin B (Verified Allergy, Unknown, contact dermatitis , 02/03/19) CHARLEY MAYER MD Feb 07, 2019 12:43
== END 2019-02-07 11:07 | disposition hospice, home (50) | DRG 871 ==
LOC: M ED 14:57 → M ED INP 16:18 → M PCU 18:14
PROVIDERS: ADMIT Family Medicine; ATTEND Internal Medicine
DX: A41.9 Sepsis, unspecified organism (principal); J18.9 Pneumonia, unspecified organism; N17.9 Acute kidney failure, unspecified; N18.5 Chronic kidney disease, stage 5; N25.81 Secondary hyperparathyroidism of renal origin; K56.609 Unspecified intestinal obstruction, unspecified as to partial versus complete obstruction; F03.90 Unspecified dementia, unspecified severity, without behavioral disturbance, psychotic disturbance, mood disturbance, and anxiety; J44.9 Chronic obstructive pulmonary disease, unspecified; Z66 Do not resuscitate; Z51.5 Encounter for palliative care; Z79.899 Other long term (current) drug therapy; Z88.8 Allergy status to other drugs, medicaments and biological substances; E87.5 Hyperkalemia; Z87.891 Personal history of nicotine dependence; Z85.46 Personal history of malignant neoplasm of prostate